=== PATIENT | male | born 1950 | race Caucasian/White ===

== ENCOUNTER 2021-03-21 14:01 | Outpatient (REF) | payer OTHER, SELFPAY ==
--- NOTE | ~2021-03-21 | US_ITS ---
EXAMINATION: US VENOUS ULTRASOUND WITH DOPPLER LOWER EXTREMITY, BILATERAL CLINICAL INFORMATION: Lower extremity pain. COMPARISON: None TECHNIQUE: Ultrasound of the deep veins is performed from the hip to the calf with compression sonography and color and pulse Doppler assessment. Spectral analysis with color-flow imaging is performed. FINDINGS: RIGHT: There is normal venous compression and respiratory variation and augmented flow. The visualized common femoral vein, superficial femoral vein, profunda femoral vein, popliteal vein, and the trifurcation region shows no evidence of deep venous thrombosis. There is no significant popliteal fossa cyst. LEFT: There is normal venous compression and respiratory variation and augmented flow. The visualized common femoral vein, superficial femoral vein, profunda femoral vein, popliteal vein, and the trifurcation region shows no evidence of deep venous thrombosis. There is no significant popliteal fossa cyst. If the patient's symptoms persist, followup ultrasound in 5 days 7 days might be of value to exclude proximal propagation from a non-visualized calf vein. US/US venous duplex LE BI IMPRESSION: No DVT demonstrated in the bilateral lower extremities.
== END 2021-03-21 14:02 | disposition home or self-care (01) ==
LOC: HO.US 14:01
PROVIDERS: PCP Internal Medicine; Visit Provider Internal Medicine
DX: M79.604 Pain in right leg (principal); M79.605 Pain in left leg
CPT/HCPCS: 93970

== ENCOUNTER 2022-05-09 13:59 | Outpatient (REF) | payer OTHER, SELFPAY ==
[2022-05-09 14:18] LABS: MANUAL DIFF FLAG NO
[2022-05-09 14:41] LABS: Basophils Percent Auto 0.5 % (0-2); Eosinophils Absolute Auto 0.1 X10*3/uL (0.0-0.4); Eosinophils Percent Auto 1.7 % (0-4); Hematocrit 43.2 % (42.0-52.0); Hemoglobin 14.6 g/dl (14.0-18.0); Imm Gran Abs Auto 0.04 X10*3/uL (0.00-0.03); Imm Gran Pct Auto 0.5 % (0.0-0.4); Lymphocytes Absolute Auto 2.4 X10*3/uL (1.2-4.9); Lymphocytes Percent Auto 30.9 % (20-40); Mean Corpuscular HGB Conc 33.8 g/dl (31.0-36.0); Mean Corpuscular Hemoglobin 29.9 pg (27.0-33.0); Mean Corpuscular Volume 88.3 fL (80.0-98.0); Mean Platelet Volume 10.2 fL (9.4-12.4); Monocytes Absolute Auto 0.6 X10*3/uL (0.1-1.2); Monocytes Percent Auto 7.8 % (2-11); Neutrophils Absolute Auto 4.5 x10*3/uL (2.0-8.3); Neutrophils Percent Auto 58.6 % (45-73); Platelet Count 177 X10*3/uL (160-400); Red Blood Count 4.89 X10*6/uL (4.60-5.80); Red Cell Distribution Width 13.7 % (11.0-16.0); White Blood Count 7.7 X10*3/uL (4.8-10.8)
[2022-05-09 15:21] LABS: Alanine Aminotransferase 33 U/L (0-40); Alkaline Phosphatase 74 U/L (39-117); Anion Gap 12 (12-20); Aspartate Amino Transferase 27 U/L (5-37); Bilirubin Total 0.5 mg/dL (0.0-1.0); Blood Urea Nitrogen 14 mg/dL (9-16); Calcium 8.8 mg/dL (8.4-10.2); Carbon Dioxide 26 mmol/L (22-29); Chloride 109 mmol/L (96-108); Cholesterol 187 mg/dL; Estimated Glomerular Filt Rate > 60; Glucose Random 95 mg/dL (60-115); HDL Cholesterol 61 mg/dL; LDL Cholesterol Calculated 118 mg/dl; Potassium 4.5 mmol/L (3.3-5.1); Sodium 142 mmol/L (135-145); Total Protein 6.5 g/dL (6.5-8.0); Triglycerides 41 mg/dL
[2022-05-09 15:30] LABS: Erythrocyte Sedimentation Rate 2 MM/HR (0-15)
[2022-05-09 15:37] LABS: Folate 17.3 ng/mL (> or = 4.0); Vitamin B12 313 pg/mL (200-900)
[2022-05-09 15:42] LABS: Free T4 (Free Thyroxine) 0.88 ng/dL (0.71-1.85); Prostate Specific Antigen Scr 1.62 ng/mL (<0.05-4.0)
== END 2022-05-09 14:00 | disposition home or self-care (01) ==
LOC: HO.LAB 13:59
PROVIDERS: PCP Internal Medicine; Visit Provider Internal Medicine
DX: E66.9 Obesity, unspecified (principal); E78.00 Pure hypercholesterolemia, unspecified; Z12.5 Encounter for screening for malignant neoplasm of prostate
CPT/HCPCS: 36415; 80053; 80061; 82607; 82746; 84153; 84439; 84443; 85025; 85652

== ENCOUNTER 2022-05-17 16:22 | Outpatient (REF) | payer OTHER, SELFPAY ==
--- NOTE | ~2022-05-17 | XR_ITS ---
EXAMINATION: XR HIP, RIGHT CLINICAL INFORMATION: M70.61 - Trochanteric bursitis, right hip COMPARISON: The abdomen and pelvis 11/22/2017. TECHNIQUE: AP view pelvis is performed along with 2 frog-lateral projections right hip. FINDINGS: There is no fracture, dislocation, destructive process. There is levocurvature lumbar spine is also noted on CT 2018. The SI joints and pubis show no diastases. Mild bilateral whiskering of the iliac crests is stable. Left hip is unremarkable. Right hip shows superior lateral hip joint narrowing without erosive change or visible chondrocalcinosis. There is mild linear calcification adjacent to the upper right greater trochanter which may be associated with calcific tendinosis. No erosive change. XR/XR hip RT min 2V IMPRESSION: -Narrowing superolateral right hip joint. No erosive change. -Fine benign linear calcification adjacent to right greater trochanter which may be associated with calcific tendinosis. -Levocurvature lumbar spine similar to CT 2018.
== END 2022-05-17 16:23 | disposition home or self-care (01) ==
LOC: HO.XRAY 16:22
PROVIDERS: PCP Internal Medicine; Visit Provider Internal Medicine
DX: M70.61 Trochanteric bursitis, right hip (principal)
CPT/HCPCS: 73502

== ENCOUNTER 2023-01-19 14:03 | Outpatient (REF) | payer OTHER, SELFPAY | END 2023-01-19 14:04 | disposition home or self-care (01) | LOC: HO.XRAY 14:03 | PROVIDERS: PCP Internal Medicine; Visit Provider Internal Medicine | DX: Z13.89 Encounter for screening for other disorder (principal) ==

== ENCOUNTER 2023-01-29 11:18 | Outpatient (REF) | payer OTHER, SELFPAY ==
--- NOTE | ~2023-01-29 | XR_ITS ---
EXAMINATION: XR HIP, BILATERAL, AND PELVIS XR KNEE, BILATERAL XR SCOLIOSIS SURVEY CLINICAL INFORMATION: Scoliosis. Hip and knee pain. COMPARISON: None available. TECHNIQUE: AP bilateral knee standing 1 view. AP pelvis and bilateral hips 5 views. AP upright scoliosis 2 images were obtained. FINDINGS: AP Bilateral Knee Standing: There is [id number] loss of medial compartment joint space both knees. No bony erosive changes, loose bodies or joint effusion seen. No fracture or dislocation seen. The bony cortex is intact. AP Pelvis and Bilateral Hips: There is mild loss of right hip joint space. The left hip joint space is preserved. The SI joints are symmetrical. No fracture or dislocation. Right Hip: There is mild loss of right superior hip joint space with lateral acetabular spurring. No acute fracture, dislocation or lytic process. Left Hip: The left hip joint space is preserved. No visible acute fracture, dislocation or subluxation seen. No bony erosive changes. The soft tissues are normal. Scoliosis Survey: There is significant S-shaped rotoscoliosis of thoracolumbar spine. No visible acute fracture or dislocation. The Franco's angle centered at T8-T9 disc level measures 52 degrees. The Franco's angle lumbar spine and L2 vertebra measures 50 degrees. No lytic or sclerotic process seen. The paravertebral soft tissues are normal. XR/XR knee standing BI IMPRESSION: Moderate degenerative changes medial compartment both knees without any fracture, loose bodies or soft tissue swelling. Mild degenerative changes right hip joint with lateral acetabular spurring. Unremarkable left hip exam. Significant rotoscoliosis of dorsal lumbar spine with Franco's angle described above. No acute fracture or lytic process seen. There are subluxations seen at several thoracic and lumbar disc levels with spondylosis.
--- NOTE | ~2023-01-29 | XR_ITS ---
EXAMINATION: XR HIP, BILATERAL, AND PELVIS XR KNEE, BILATERAL XR SCOLIOSIS SURVEY CLINICAL INFORMATION: Scoliosis. Hip and knee pain. COMPARISON: None available. TECHNIQUE: AP bilateral knee standing 1 view. AP pelvis and bilateral hips 5 views. AP upright scoliosis 2 images were obtained. FINDINGS: AP Bilateral Knee Standing: There is [id number] loss of medial compartment joint space both knees. No bony erosive changes, loose bodies or joint effusion seen. No fracture or dislocation seen. The bony cortex is intact. AP Pelvis and Bilateral Hips: There is mild loss of right hip joint space. The left hip joint space is preserved. The SI joints are symmetrical. No fracture or dislocation. Right Hip: There is mild loss of right superior hip joint space with lateral acetabular spurring. No acute fracture, dislocation or lytic process. Left Hip: The left hip joint space is preserved. No visible acute fracture, dislocation or subluxation seen. No bony erosive changes. The soft tissues are normal. Scoliosis Survey: There is significant S-shaped rotoscoliosis of thoracolumbar spine. No visible acute fracture or dislocation. The Franco's angle centered at T8-T9 disc level measures 52 degrees. The Franco's angle lumbar spine and L2 vertebra measures 50 degrees. No lytic or sclerotic process seen. The paravertebral soft tissues are normal. XR/XR hip BI w PEL1V IMPRESSION: Moderate degenerative changes medial compartment both knees without any fracture, loose bodies or soft tissue swelling. Mild degenerative changes right hip joint with lateral acetabular spurring. Unremarkable left hip exam. Significant rotoscoliosis of dorsal lumbar spine with Franco's angle described above. No acute fracture or lytic process seen. There are subluxations seen at several thoracic and lumbar disc levels with spondylosis.
--- NOTE | ~2023-01-29 | XR_ITS ---
EXAMINATION: XR HIP, BILATERAL, AND PELVIS XR KNEE, BILATERAL XR SCOLIOSIS SURVEY CLINICAL INFORMATION: Scoliosis. Hip and knee pain. COMPARISON: None available. TECHNIQUE: AP bilateral knee standing 1 view. AP pelvis and bilateral hips 5 views. AP upright scoliosis 2 images were obtained. FINDINGS: AP Bilateral Knee Standing: There is [id number] loss of medial compartment joint space both knees. No bony erosive changes, loose bodies or joint effusion seen. No fracture or dislocation seen. The bony cortex is intact. AP Pelvis and Bilateral Hips: There is mild loss of right hip joint space. The left hip joint space is preserved. The SI joints are symmetrical. No fracture or dislocation. Right Hip: There is mild loss of right superior hip joint space with lateral acetabular spurring. No acute fracture, dislocation or lytic process. Left Hip: The left hip joint space is preserved. No visible acute fracture, dislocation or subluxation seen. No bony erosive changes. The soft tissues are normal. Scoliosis Survey: There is significant S-shaped rotoscoliosis of thoracolumbar spine. No visible acute fracture or dislocation. The Franco's angle centered at T8-T9 disc level measures 52 degrees. The Franco's angle lumbar spine and L2 vertebra measures 50 degrees. No lytic or sclerotic process seen. The paravertebral soft tissues are normal. XR/XR scoliosis survey IMPRESSION: Moderate degenerative changes medial compartment both knees without any fracture, loose bodies or soft tissue swelling. Mild degenerative changes right hip joint with lateral acetabular spurring. Unremarkable left hip exam. Significant rotoscoliosis of dorsal lumbar spine with Franco's angle described above. No acute fracture or lytic process seen. There are subluxations seen at several thoracic and lumbar disc levels with spondylosis.
== END 2023-01-29 11:19 | disposition home or self-care (01) ==
LOC: HO.XRAY 11:18
PROVIDERS: PCP Internal Medicine; Visit Provider Internal Medicine
DX: M41.9 Scoliosis, unspecified (principal); M25.551 Pain in right hip; M25.561 Pain in right knee; M25.562 Pain in left knee
CPT/HCPCS: 72082; 73521; 73565

== ENCOUNTER 2023-10-11 09:56 | Outpatient (AMB) | payer OTHER, SELFPAY ==
[2023-10-11 09:58] VITALS: BP 138/64; PULSE 68; O2SAT 96; BMI 32.8
--- NOTE | 2023-10-11 09:58 | MHC.PC.OV ---
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: No Accompanied by: Self / Same As Patient Allergies metronidazole [Flagyl] Allergy (Mild, Verified 10/11/23 10:04) light headed Tobacco use date assessed: 01/29/23 Fall risk assessment: No Falls in past year Last assessed Fall Risk: 10/11/23 Dental Screening Dental Screen Date: 10/11/23 Did you have a dental visit in the last 12 months?: Yes Did you have a dental problem in the last 6 months where you did not have access to dental care?: No Was dental information given to patient?: Patient has dentist HPI low back pain HPI Details 72-year-old obese male with obstructive sleep apnea scoliosis coming in for follow-up. Last seen in January 2023 patient has requested for physical therapy for difficulty in walking diagnosis of reduced hip flexion. Patient was sent with the Cologuard test that has because the patient declined to use it. Patient has had x-rays done in January showing moderate degenerative changes in the medial compartment of both knees no fractures mild degenerative changes in the right hip with spurring unremarkable left hip significant rotoscoliosis of the dorsal lumbar spine. on physical therapy presently. changed bed also. decline vaccinations [facility] Medical History (Updated 10/11/23 @ 10:25 by Almas Carpenter MD) Tinea corporis DVT (deep venous thrombosis) Dry skin dermatitis Venous stasis dermatitis Umbilical hernia Obesity (BMI 30-39.9) Renal calculi Obstructive sleep apnea Surgical History H/O inguinal hernia repair Social History Housing: House Alcohol intake: never Patient Tobacco Use Status: Former Tobacco user Tobacco use type: Cigarette Years Smoked: 1974 e-Cigarette/Vaping Use: Never Used Second Hand Smoke Exposure: No Current occupational status: employed Cognitive needs: No Hearing needs: No Vision needs: Yes Questionnaire Thrive Questionnaire Date Thrive assessed: 01/29/23 DELANO-7 AMB Questionnaire DELANO-7 Date DELANO - 7 assessed: 01/29/23 Source: Developed by Drs. Gurpreet Rehman, Patricia Connolly, Saúl Hernández and colleagues, with an educational vasile from [employer]. Physical exam (Primary Care) Vital Signs: Last Vital Signs Pulse 68 10/11/23 09:58 BP 138/64 10/11/23 09:58 Pulse Ox 96 10/11/23 09:58 Oxygen Delivery Method Room Air 10/11/23 09:58 BMI result Body Mass Index 32.8 Tobacco/Smoking Status: Tobacco use Status Tobacco use date assessed 01/29/23 10/11/23 10:06 Patient Tobacco Use Status Former Tobacco user 10/11/23 10:06 Tobacco use type Cigarette 10/11/23 10:06 e-Cigarette/Vaping Use Never Used 10/11/23 10:06 Thrive Assessment: Date of Thrive Assessment Date Thrive assessed 01/29/23 10/11/23 10:06 Const General: alert; No acute distress Eyes Conjunctivae: conjunctivae normal Resp Auscultation: clear to auscultation bilaterally Cardio Rate: regular rate Rhythm: regular rhythm GI Inspection: Yes normal to inspection Extrem General: Yes normal to inspection and No edema Assessment and Plan Assessment & Plan (1) Scoliosis: Comment: seeRaiza Conn (07/2022) Code(s): M41.9 - Scoliosis, unspecified Qualifiers: Scoliosis type: unspecified scoliosis Spinal region: lumbar Qualified Code(s): M41.9 - Scoliosis, unspecified Plan: Keep active and lose the weight (2) Arthritis, hip: Code(s): M16.10 - Unilateral primary osteoarthritis, unspecified hip Plan: Keep active and lose the weight (3) Bilateral primary osteoarthritis of knee: Code(s): M17.0 - Bilateral primary osteoarthritis of knee Plan: Continue to lose the weight keep active keep well hydrated (4) Obstructive sleep apnea: Comment: July 2019 Code(s): G47.33 - Obstructive sleep apnea (adult) (pediatric) Plan: Continue to use the CPAP more than 4 hours a night and benefits from this (5) Obesity (BMI 30-39.9): Code(s): E66.9 - Obesity, unspecified Plan: Noted weight loss continue with diet and exercise! (6) Colon cancer screening: Code(s): Z12.11 - Encounter for screening for malignant neoplasm of colon Plan: Reminded about colonoscopy or Cologuard test Orders: Orders Comprehensive Met. Panel Today E66.9 - Obesity, unspecified Free T4 (Free Thyroxine) Today E66.9 - Obesity, unspecified Thyroid Stimulating Hormone Today E66.9 - Obesity, unspecified Lipid Panel Today E66.9 - Obesity, unspecified, E78.00 - Pure hypercholesterolemia, unspecified Complete Blood Count Auto Diff Today E66.9 - Obesity, unspecified Vitamin B12 and Folate Today E66.9 - Obesity, unspecified Referrals Cologuard Test Z12.11 - Encounter for screening for malignant neoplasm of colon, Z12.12 - Encounter for screening for malignant neoplasm of rectum Coding Level of Care Code Est Pt Level 4 (99263) Diagnoses Scoliosis of lumbar spine, unspecified scoliosis type M41.9 Scoliosis type: unspecified scoliosis Spinal region: lumbar Arthritis, hip M16.10 Bilateral primary osteoarthritis of knee M17.0 Obstructive sleep apnea G47.33 Obesity (BMI 30-39.9) E66.9 Colon cancer screening Z12.11
== END 2023-10-11 10:45 | disposition home or self-care (01) ==
PROVIDERS: PCP Internal Medicine; Visit Provider Internal Medicine
DX: M41.9 Scoliosis, unspecified (principal); M16.10 Unilateral primary osteoarthritis, unspecified hip; M17.0 Bilateral primary osteoarthritis of knee; G47.33 Obstructive sleep apnea (adult) (pediatric)
CPT/HCPCS: 99214

== ENCOUNTER 2024-10-20 15:15 | Outpatient (AMB) | payer OTHER, SELFPAY ==
[2024-10-20 15:20] VITALS: BP 140/78; PULSE 66; O2SAT 97; BMI 34.3
--- NOTE | 2024-10-20 15:20 | MHC.PC.OV ---
Vital Signs 10/20/24 15:20 Height 5 ft 5 in Weight 206 lb BMI 34.3 BP 140/78 H Blood Pressure Location Lt brachial Position Sitting Pulse 66 Pulse Source Pulse Oximeter Pulse Oximetry (%) 97 Oxygen Delivery Method Room Air Intake Visit Reasons: chronic back and hip pain-see comm Allergies metronidazole [Flagyl] Allergy (Mild, Verified 10/20/24 15:20) light headed Tobacco use date assessed: 10/20/24 Fall risk assessment: No Falls in past year Last assessed Fall Risk: 10/20/24 Dental Screening Dental Screen Date: 10/20/24 Did you have a dental visit in the last 12 months?: Yes Did you have a dental problem in the last 6 months where you did not have access to dental care?: No Was dental information given to patient?: Patient has dentist HPI chronic back and hip pain-see comm HPI Details The patient is a 73-year-old male presenting with chronic lumbar spine pain and right hip osteoarthritis. The lumbar spine pain began approximately two and a half years ago, initially noticed after starting to use a new car with a different seating arrangement. The pain is localized to the lumbar area and radiates down the right side to the buttocks, thigh, and groin. The patient reports a significant exacerbation of symptoms following the unavailability of his regular chiropractor in May. Despite intermittent physical therapy at [facility] in [place], the condition persists without significant improvement. Previous imaging revealed right hip osteoarthritis with spurring but were unremarkable for the left hip. The therapy has included attempts at managing muscle tightness in the lower back by referring physical therapists who have also recommended MRI imaging for further evaluation. The patient denies any recent falls or trauma associated with the onset of symptoms and reports continued difficulty walking. [facility] Medical History (Updated 10/20/24 @ 16:04 by Almas Carpenter MD) Tinea corporis DVT (deep venous thrombosis) Dry skin dermatitis Venous stasis dermatitis Umbilical hernia Obesity (BMI 30-39.9) Renal calculi Obstructive sleep apnea Surgical History H/O inguinal hernia repair Social History Housing: House Alcohol intake: never Patient Tobacco Use Status: Former Tobacco user Tobacco use type: Cigarette Years Smoked: 1974 e-Cigarette/Vaping Use: Never Used Second Hand Smoke Exposure: No Current occupational status: employed Cognitive needs: No Hearing needs: No Vision needs: Yes Questionnaire PHQ-9 Over the last 2 weeks, how often have you been bothered by any of the following problems? 1. Little interest or pleasure in doing things: not at all 2. Feeling down, depressed, or hopeless: not at all 3. Trouble falling or staying asleep, or sleeping too much: not at all 4. Feeling tired or having little energy: not at all 5. Poor appetite or overeating: not at all 6. Feeling bad about yourself - or that you are a failure or have let yourself or your family down: not at all 7. Trouble concentrating on things, such as reading the newspaper or watching television: not at all 8. Moving or speaking so slowly that other people could have noticed. Or the opposite - being so fidgety or restless that you have been moving around a lot more than usual: not at all 9. Thoughts that you would be better off or of hurting yourself in some way: not at all Total score: 0 Depression Screening Interpretation: Negative Depression Screening Done: Yes Source: Developed by Drs. Gurpreet Rehman, Patricia Connolly, Saúl Hernández and colleagues, with an educational vasile from [email or web address]. Thrive Questionnaire Date Thrive assessed: 10/20/24 I am a: Patient What is your living situation today?: I have a steady place to live Within the past 12 months, did the food you bought not last and you didn't have the money to get more?: Never true Within the past 12 months, did you worry whether your food would run out before you got money to buy more?: Never true Do you have trouble paying for medicines?: No Do you have trouble getting transportation to medical appointments?: No Do you have trouble paying your heating and electricity bill?: No Do you have trouble taking care of your child, family member or friend?: No Do you have trouble with day-to-day activities such as bathing, preparing meals, shopping, managing finances, etc.?: No Are you currently unemployed and looking for a job?: No Are you interested in more education?: No Currently or been in a relationship where the following occur: No concerns reported THRIVE Score: 0 AUDIT C Alcohol Use Questionnaire (AUDIT-C) 1. How often do you have a drink containing alcohol?: Never 2. How many drinks containing alcohol do you have on a typical day when you are drinking?: 1 or 2 3. How often do you have six or more drinks on one occasion?: Never Total Score: 0 DELANO-7 AMB Questionnaire DELANO-7 Date DELANO - 7 assessed: 10/20/24 Feeling nervous, anxious, or on edge: 0 = Not at all Not being able to stop or control worryin = Not at all Worrying too much about different things: 0 = Not at all Trouble relaxin = Not at all Being so restless that it is hard to sit still: 0 = Not at all Becoming easily annoyed or irritable: 0 = Not at all Feeling afraid as if something awful might happen: 0 = Not at all Total DELANO-7 score (0-4 normal; 5-9 mild; 10-14 moderate; 15-21 severe): 0 Source: Developed by Drs. Gurpreet Rehman, Patricia Connolly, Saúl Hernández and colleagues, with an educational vasile from [email or web address]. Physical exam (Primary Care) Vital Signs: Last Vital Signs Pulse 66 10/20/24 15:20 BP 140/78 H 10/20/24 15:20 Pulse Ox 97 10/20/24 15:20 Oxygen Delivery Method Room Air 10/20/24 15:20 BMI result Body Mass Index 34.3 Tobacco/Smoking Status: Tobacco use Status Tobacco use date assessed 10/20/24 10/20/24 15:21 Patient Tobacco Use Status Former Tobacco user 10/20/24 15:21 Tobacco use type Cigarette 10/20/24 15:21 e-Cigarette/Vaping Use Never Used 10/20/24 15:21 PHQ-9: PHQ-9 Score PHQ-9: Total score 0 10/20/24 16:02 Depression Screening Interpretation: Negative Thrive Assessment: Date of Thrive Assessment Date Thrive assessed 10/20/24 10/20/24 15:21 Currently or been in a relationship where the following occur: No concerns reported Const General: alert; No acute distress Eyes Conjunctivae: conjunctivae normal Resp Auscultation: clear to auscultation bilaterally Cardio Rate: regular rate Rhythm: regular rhythm GI Inspection: Yes normal to inspection Back/Spine/Pelvis Other: Patient complains of tenderness in the lumbar area on examination tender on palpation as well as on the sacroiliac joint but patient complains of right thigh to right groin radiation but examination reveals no leg elevation problems. DTRs +2 on all extremities Extrem General: Yes normal to inspection and No edema Coding Level of Care Code Est Pt Level 4 (02944) Diagnoses Bilateral primary osteoarthritis of knee M17.0 Scoliosis of lumbar spine, unspecified scoliosis type M41.9 Scoliosis type: unspecified scoliosis Spinal region: lumbar Obesity (BMI 30-39.9) E66.9 Obstructive sleep apnea G47.33 Chronic low back pain M54.50; G89.29 Colon cancer screening Z12.11 Assessment & Plan Assessment & Plan (1) Bilateral primary osteoarthritis of knee: Code(s): M17.0 - Bilateral primary osteoarthritis of knee Category: Medical (2) Scoliosis: Comment: Raiza Arndt (07/2022) Code(s): M41.9 - Scoliosis, unspecified Category: Medical Qualifiers: Scoliosis type: unspecified scoliosis Spinal region: lumbar Qualified Code(s): M41.9 - Scoliosis, unspecified (3) Obesity (BMI 30-39.9): Code(s): E66.9 - Obesity, unspecified Category: Medical (4) Obstructive sleep apnea: Comment: July 2019 Code(s): G47.33 - Obstructive sleep apnea (adult) (pediatric) Category: Medical (5) Chronic low back pain: Code(s): M54.50 - Low back pain, unspecified; G89.29 - Other chronic pain Category: Medical (6) Colon cancer screening: Code(s): Z12.11 - Encounter for screening for malignant neoplasm of colon Category: Medical Plan - Order MRI of the lumbar spine to assess underlying pathology contributing to the pain. - Schedule an X-ray of the lumbar spine to evaluate structural integrity and any possible degenerative changes. - Discuss insurance requirements for referrals and necessary pre-authorizations for treatments. - Facilitate referral to a chiropractor, specifically Dr. Mamie Sepulveda, at the patient's request, pending provision of additional referral details. - Continue physical therapy at [facility] with the possibility of altering interventions based on MRI and X-ray findings. - Educate about the importance of consistent follow-up and reporting of insurance-related updates regarding scheduled diagnostic tests. Orders: Orders MR lumbar spine wo con Today G89.29 - Other chronic pain, M54.50 - Low back pain, unspecified Complete Blood Count Auto Diff Today E66.9 - Obesity, unspecified Comprehensive Met. Panel Today E66.9 - Obesity, unspecified Thyroid Stimulating Hormone Today E66.9 - Obesity, unspecified Lipid Panel Today E66.9 - Obesity, unspecified, E78.00 - Pure hypercholesterolemia, unspecified XR lumbar spine 2-3V Today G89.29 - Other chronic pain, M54.50 - Low back pain, unspecified Free T4 (Free Thyroxine) Today E66.9 - Obesity, unspecified Vitamin B12 and Folate Today E66.9 - Obesity, unspecified Referrals Cologuard Test Z12.11 - Encounter for screening for malignant neoplasm of colon
== END 2024-10-20 16:20 | disposition home or self-care (01) ==
PROVIDERS: PCP Internal Medicine; Visit Provider Internal Medicine
DX: M17.0 Bilateral primary osteoarthritis of knee (principal); M41.9 Scoliosis, unspecified; Z68.34 Body mass index [BMI] 34.0-34.9, adult; E66.9 Obesity, unspecified; G47.33 Obstructive sleep apnea (adult) (pediatric); M54.50 Low back pain, unspecified; G89.29 Other chronic pain; Z12.11 Encounter for screening for malignant neoplasm of colon

== ENCOUNTER 2024-11-24 14:59 | Outpatient (AMB) | payer OTHER, SELFPAY ==
--- NOTE | 2024-11-24 15:14 | A.OFFPC_ITS ---
Vital Signs 11/24/24 15:16 Height 5 ft 5 in Weight 208 lb 4 oz BMI 34.7 BP 130/74 Blood Pressure Location Lt brachial Position Sitting Pulse 74 Pulse Source Pulse Oximeter Temp 97.1 F Temp Source Skin Pulse Oximetry (%) 97 Oxygen Delivery Method Room Air Intake Visit Reasons: Referral for Chiropractor Intake Note: Patient is here to follow up on MRI denial. Tearer Required: No Feed In Worker: Not Required per policy Accompanied by: Self / Same As Patient Allergies metronidazole [Flagyl] Allergy (Mild, Verified 11/24/24 15:15) light headed Tobacco use date assessed: 11/24/24 Fall risk assessment: No Falls in past year Last assessed Fall Risk: 11/24/24 Dental Screening Dental Screen Date: 11/24/24 Did you have a dental visit in the last 12 months?: Yes Did you have a dental problem in the last 6 months where you did not have access to dental care?: No Was dental information given to patient?: Patient has dentist HPI Referral for Chiropractor HPI Details states Chiropractor will be sending notes, states that has been seeing chiropractor for 2 years with patient handing over the physical therapy notes for 2 years as patient has called [facility] more than 6 weeks- will try to send them the notes, Mamie Sepulveda chiropractcarloz The patient is a 73-year-old male presenting with chronic back pain exacerbation and issues related to obstructive sleep apnea device replacement. The chronic pain began approximately two and a half years ago, located primarily in the back and left hip. The patient has been receiving chiropractic treatment for this condition at [facility] for over two years and has also attended some physical therapy sessions. The pain initially escalated in severity to the extent that the chiropractor recommended triweekly visits. Treatment at [facility] was comprehensive and reportedly effective, but the insurance has repeatedly denied requests for an MRI due to a claimed lack of documented treatment duration. The patient states that despite continuous treatment, insurance records reflect only a single visit. This has made proving the condition to the insurance company challenging. Additionally, the patient indicates complications with replacing his CPAP machine, which is due for replacement after more than five years of use. The m achine's effectiveness has diminished, and the insurance company requires a recent consultation with a sleep specialist for approval of a new device. Notably, the patient's previous sleep medicine facility is out of network, prompting a potential referral to a new specialist within the network. [facility] Medical History (Updated 10/20/24 @ 16:04 by Almas Carpenter MD) Tinea corporis DVT (deep venous thrombosis) Dry skin dermatitis Venous stasis dermatitis Umbilical hernia Obesity (BMI 30-39.9) Renal calculi Obstructive sleep apnea Surgical History H/O inguinal hernia repair Social History Housing: House Alcohol intake: never Patient Tobacco Use Status: Former Tobacco user Tobacco use type: Cigarette Years Smoked: 1974 e-Cigarette/Vaping Use: Never Used Second Hand Smoke Exposure: Yes service: No Current occupational status: employed Cognitive needs: No Hearing needs: No Vision needs: Yes Questionnaire PHQ-9 Over the last 2 weeks, how often have you been bothered by any of the following problems? 1. Little interest or pleasure in doing things: not at all 2. Feeling down, depressed, or hopeless: not at all 3. Trouble falling or staying asleep, or sleeping too much: not at all 4. Feeling tired or having little energy: not at all 5. Poor appetite or overeating: not at all 6. Feeling bad about yourself - or that you are a failure or have let yourself or your family down: not at all 7. Trouble concentrating on things, such as reading the newspaper or watching television: not at all 8. Moving or speaking so slowly that other people could have noticed. Or the opposite - being so fidgety or restless that you have been moving around a lot more than usual: not at all 9. Thoughts that you would be better off or of hurting yourself in some way: not at all Total score: 0 Depression Screening Interpretation: Negative Depression Screening Done: Yes Source: Developed by Drs. Gurpreet Rehman, Patricia Connolly, Saúl Hernández and colleagues, with an educational vasile from [employer]. Thrive Questionnaire Date Thrive assessed: 11/24/24 I am a: Patient What is your living situation today?: I have a steady place to live Within the past 12 months, did the food you bought not last and you didn't have the money to get more?: Never true Within the past 12 months, did you worry whether your food would run out before you got money to buy more?: Never true Do you have trouble paying for medicines?: No Do you have trouble getting transportation to medical appointments?: No Do you have trouble paying your heating and electricity bill?: No Do you have trouble taking care of your child, family member or friend?: No Do you have trouble with day-to-day activities such as bathing, preparing meals, shopping, managing finances, etc.?: No Are you currently unemployed and looking for a job?: No Are you interested in more education?: No Please select the resources that you would like help with: None Currently or been in a relationship where the following occur: No concerns reported THRIVE Score: 0 AUDIT C Alcohol Use Questionnaire (AUDIT-C) 1. How often do you have a drink containing alcohol?: Never Total Score: 0 DELANO-7 AMB Questionnaire DELANO-7 Date DELANO - 7 assessed: 11/24/24 Feeling nervous, anxious, or on edge: 0 = Not at all Not being able to stop or control worryin = Not at all Worrying too much about different things: 0 = Not at all Trouble relaxin = Not at all Being so restless that it is hard to sit still: 0 = Not at all Becoming easily annoyed or irritable: 0 = Not at all Feeling afraid as if something awful might happen: 0 = Not at all Total DELANO-7 score (0-4 normal; 5-9 mild; 10-14 moderate; 15-21 severe): 0 Source: Developed by Drs. Gurpreet Rehman, Patricia Connolly, Saúl Hernández and colleagues, with an educational vasile from [employer]. Physical exam (Primary Care) Vital Signs: Last Vital Signs Temp 97.1 F 11/24/24 15:16 Pulse 74 11/24/24 15:16 BP 130/74 11/24/24 15:16 Pulse Ox 97 11/24/24 15:16 Oxygen Delivery Method Room Air 11/24/24 15:16 BMI result Body Mass Index 34.7 Tobacco/Smoking Status: Tobacco use Status Tobacco use date assessed 11/24/24 11/24/24 15:23 Patient Tobacco Use Status Former Tobacco user 11/24/24 15:23 Tobacco use type Cigarette 11/24/24 15:23 e-Cigarette/Vaping Use Never Used 11/24/24 15:23 PHQ-9: PHQ-9 Score PHQ-9: Total score 0 11/24/24 15:40 Depression Screening Interpretation: Negative Thrive Assessment: Date of Thrive Assessment Date Thrive assessed 11/24/24 11/24/24 15:23 Currently or been in a relationship where the following occur: No concerns reported Const General: alert; No acute distress Eyes Conjunctivae: conjunctivae normal Resp Auscultation: clear to auscultation bilaterally Cardio Rate: regular rate Rhythm: regular rhythm GI Inspection: Yes normal to inspection Extrem General: Yes normal to inspection and No edema Coding Level of Care Code Est Pt Level 4 (95753) Diagnoses Chronic low back pain M54.50; G89.29 Obesity (BMI 30-39.9) E66.9 Obstructive sleep apnea G47.33 Assessment & Plan Assessment & Plan (1) Chronic low back pain: Code(s): M54.50 - Low back pain, unspecified; G89.29 - Other chronic pain Category: Medical Plan: Pt and chiropractor work for more than 2 years (2) Obesity (BMI 30-39.9): Code(s): E66.9 - Obesity, unspecified Category: Medical Plan: diet and exercise (3) Obstructive sleep apnea: Comment: July 2019 Code(s): G47.33 - Obstructive sleep apnea (adult) (pediatric) Category: Medical Plan: using CPAP but asking for ffup with sleep management Plan - Provide updated documentation of chiropractic treatment to further support insurance requests for diagnostic imaging such as an MRI. - Recommend continuation of health care technician and physical therapy for chronic pain management. - Facilitate an informal referral to an in-network sleep medicine specialist, specifically Sophie from the [facility], in order to secure approval for CPAP machine replacement. - Alert the patient to maintain precautionary measures against prevalent seasonal illnesses like influenza, RSV, COVID-19, and norovirus. Orders: Orders MR lumbar spine wo con Today G89.29 - Other chronic pain, M54.50 - Low back p ain, unspecified Referrals Neurology Referral G47.33 - Obstructive sleep apnea (adult) (pediatric)
[2024-11-24 15:16] VITALS: BP 130/74; PULSE 74; TEMP 36.2; O2SAT 97; BMI 34.7
--- OUTSIDE RECORDS SUMMARY | 2024-11-24 19:15 | XMS_ITS | Clinical Summary ---
Author Organization [employer] Address [address] [place] [address] [address] [place] [address] Care Team Providers Care Peoplesoft Hr Developer Name Role Phone Unavailable Primary Care Provider Unavailabl e Allergies No known active allergies Medications No known medications Encounters Date Type Department Care Team Description 10/23/2024 4:00 PM EST Office Visit [facility] DENTAL [address] [place], [place] [id number] Stephanie Martinez DDS Dental caries (Primary Dx); Missing teeth, acquired; Periodontal disease 10/16/2024 3:00 PM EST Office Visit [facility] DENTAL [address] [place], [place] [id number] Stephanie Martinez DDS Dental caries (Primary Dx) from Last 3 Months Social History Tobacco Use Types Packs/Day Years Used Date Smoking Tobacco: Never Assessed Sex and Gender Information Value Date Recorded Sex Assigned at Male 03/19/2024 2:05 PM EDT Legal Sex Male 8:35 PM EDT Gender Identity Male 03/19/2024 2:05 PM EDT Sexual Orientation Choose not to disclose 2023 2:05 PM EDT Plan of Treatment Upcoming Encounters Date Type Department Care Team (Late st Contact Info) Description 12/04/2024 2:00 PM EST Office Visit [facility] DENTAL [address] [place] [address] Renee Heller [address] [place] [address] Health Maintenance Due Date Last Done Comments CT Colonography 1950 Colonoscopy 1950 Colorectal Cancer Screening 1950 Dental Oral Exam 1950 Dental Prophylaxis 1950 Depression Screening 1950 FIT DNA/Cologuard 1950 FIT 1950 FOBT 1950 Lipid Panel 1950 SDOH Screening 1950 Sigmoidoscopy 1950 Alcohol/Substance Use Screening 1962 Tobacco Screening 1962 Hepatitis C Screening 1968 Zoster Vaccines (1 of 2) 2000 Pneumococcal Vaccine: 65+ Ye ars (1 of 1 - PCV) 2015 COVID-19 Vaccine ( - 2023-2 5 season) 2024 Influenza Vaccine (#1) 2024 Dental X-Ray: Bitewings 10/24/2025 10/23/2024 RSV Patients and Pa tients Aged 60 years or older (1 - 1-dose 75+ series) 2025 DTaP/Tdap/Td Vaccines (2 - T d or Tdap) 08/22/2027 08/22/2017 Dental X-Ray: Full Mouth 10/24/2027 10/23/2024 HIB Vaccines Aged Out No longer eligi ble based on patient's age to complete this topic HPV Vaccines Aged Out No longer eligi ble based on patient's age to complete this topic Hepatitis A Vaccines Aged Out No long er eligible based on patient's age to complete this topic Hepatitis B Vaccines Aged Out No long er eligible based on patient's age to complete this topic IPV Vaccines Aged Out No longer eligi ble based on patient's age to complete this topic Meningococcal Vaccine Aged Out No clarisa yessi eligible based on patient's age to complete this topic RSV under 20 months Aged Out No longe r eligible based on patient's age to complete this topic Rotavirus Vaccines Aged Out No longer eligible based on patient's age to complete this topic Procedures Procedure Name Priority Date/Time Associated Diagnosis Comments DIAGNOSTIC - DIAGNOSTIC IMAGING - INTRAORAL - COMPREHENSIVE SERIES OF RADIOGRAPHIC IMAGES Routine 10/23/2024 4:00 PM EST Dental caries Missing teeth, acquired Periodontal disease 31 D RESTORATIVE - RESIN-BASED COMPOSITE RESTORATIONS - DIRECT - RESIN-BASED COMPOSITE - ONE SURFACE, POSTERIOR Routine 10/23/2024 4:00 PM EST Dental caries 30 DO RESTORATIVE - RESIN-BASED COMPOSITE RESTORATIONS - DIRECT - RESIN-BASED COMPOSITE - TWO SURFACES, POSTERIOR Routine 10/23/2024 4:00 PM EST Dental caries ADJUNCTIVE GENERAL SERVICES - PROFESSIONAL VISITS - CASE PRESENTATION, SUBSEQUENT TO DETAILED AND EXTENSIVE TREATMENT PLANNING Routine 10/23/2024 4:00 PM EST Dental caries Missing teeth, acquired Periodontal disease ADJUNCTIVE GENERAL SERVICES - PROFESSIONAL VISITS - CASE PRESENTATION, SUBSEQUENT TO DETAILED AND EXTENSIVE TREATMENT PLANNING Routine 10/16/2024 3:00 PM EST Dental caries 11 MDFF(V) RESTORATIVE - RESIN-BASED COMPOSITE RESTORATIONS - DIRECT - RESIN-BASED COMPOSITE - THREE SURFACES, ANTERIOR Routine 10/16/2024 3:00 PM EST Dental caries from Last 3 Months Insurance DENTAL - HSN FULL (MEDICAID)
--- OUTSIDE RECORDS SUMMARY | 2024-11-24 19:15 | XMS_ITS | Patient Health Record ---
Author Organization [facility] Address [address] [place] [address] Care Team Providers Care Temperer Name Role Phone Almas Carpenter Primary Care Provider Hardeep Beltran Unavailable [phone] Allergies Allergen (clinical drug ingredient) Drug/Non Drug Allergy documented on EMR Reaction Allergy Type Onset Date Status Wheat Wheat (uncoded) Foggy thoughts, gained weight, lethargic Allergy Active Reason For Referral No Information Medications Medication SIG (Take, Route, Fr equency, Duration) Notes Start Date End Date Status Magnesium Active L-Tryptophan 500 MG 1 capsule at bedtime Orally Once a day Active Multivitamin Active Calcium Active Vitamin C Active Aspirin 2 Orally Once a day Active Immunizations Vaccine Route Administration Date Status Comme nts COVID-19 Nato [employer] Nato/Ria Unknown 11/27/2022 R efused Social History Tobacco Use: Social History Observation Description Date Details (start date - stop date) Former Smoker NA - NA Tobacco Use/Smoking Question Answer Notes Are you a: former smoker Alcohol Screen Question Answer Notes Did you have a drink containing alcohol in the p ast year? No Points 0 Interpretation Negative Tobacco use other than smoking: Question Answer Notes Are you an other tobacco user? No Problems Problem Type SNOMED Code ICD Code Onset Dates Problem Status W/U Status Risk Notes Problem Localized, primary osteoarthritis of the ankle and/or foot (878941053) Primary osteoarthritis, left ankle and foot (M19.072) Active confirmed Problem Acquired hammer toe of right foot (9207708877773595) Other hammer toe(s) (acquired), right foot (M20.41) Active confirmed Problem Acquired hammer toe of left foot (1223301208478592) Other hammer toe(s) (acquired), left foot (M20.42) Active confirmed Problem 653392340 Venous insufficiency of both lower extremities (I87.2) Active confirmed Plan Of Treatment Pending Test Test Name Order Date X ray : Foot, left 2V 05/07/2019 X ray : Foot, right 2V 05/07/2019 X ray : Foot, left 3V 11/27/2022 Insurance Providers Payer Name Payer Address Payer Phone Subscriber Number Group Number Insured Name Patient Relationship to Insured Coverage Start Date Coverage End Date [facility] [address] [place] [phone] [id number] Cornel Avina Self - patient is the insured Medical (General) History Medical History History ICD Code Anxiety Back,Hip,and Knee pain Measles Chicken pox Surgical History Surgery Date(Month/Year) hernia 01/2010/01/2018
== END 2024-11-24 16:31 | disposition home or self-care (01) ==
PROVIDERS: PCP Internal Medicine; Visit Provider Internal Medicine
DX: M54.50 Low back pain, unspecified (principal); G89.29 Other chronic pain; E66.9 Obesity, unspecified; Z68.34 Body mass index [BMI] 34.0-34.9, adult; G47.33 Obstructive sleep apnea (adult) (pediatric)

== ENCOUNTER → 2024-12-19 16:43 | Outpatient (BNV) | payer MEDICARE, SELFPAY | PROVIDERS: PCP Internal Medicine; Visit Provider Radiology Diagnostic Radiology | DX: M41.26 Other idiopathic scoliosis, lumbar region (principal); M47.896 Other spondylosis, lumbar region; M48.062 Spinal stenosis, lumbar region with neurogenic claudication | CPT/HCPCS: 72148 ==

== ENCOUNTER 2024-12-19 16:49 | Outpatient (REF) | payer MEDICARE, SELFPAY ==
--- NOTE | ~2024-12-19 | MR_ITS ---
EXAMINATION: MR LUMBAR SPINE WITHOUT CONTRAST CLINICAL INFORMATION: Low back pain. COMPARISON: Correlated to x-ray dated January 29, 2023. TECHNIQUE: MRI of the lumbar spine was obtained using routine sequences without contrast. FINDINGS: Last rib-bearing vertebra labeled T12. Bone marrow STIR signal within the posterior superior endplate of L5, L3 and L4. Levoconvex rotoscoliosis apex at L2-3. There is focal intrinsic hyperintense T1 bone marrow lesion at L3, intraosseous hemangioma. Bone marrow inhomogeneity. Multilevel disc desiccation and marginal osteophyte formation with Schmorl nodes more conspicuous at L3-4 and L2-3 levels. There is a grade 1 anterolisthesis L5-S1 on a degenerative basis. The conus medullaris ends at pedicle of L1 with normal signal. T11-12: Facet joint and ligamentum flavum hypertrophy. No disc herniation. T12-L1: No disc herniation. No neuroforamina stenosis. L1-2: Facet joint and ligamentum flavum hypertrophy. No disc herniation. No neuroforamina stenosis. L2-3: Broad-based disc bulging. Facet joint and ligamentum flavum hypertrophy. No neuroforamina stenosis. L3-4: Facet joint and ligamentum flavum hypertrophy. Broad-based disc bulging. Right neuroforamina narrowing. L4-5: Broad-based disc bulging. Facet joint and ligamentum flavum hypertrophy. Reduced AP diameter of the thecal sac and the neural foramina likely encroaching the neural elements. L5-S1: Broad-based disc bulging. Facet joint and ligamentum flavum hypertrophy. Facet effusion. Reduced AP diameter of the thecal sac and in the neural foramina more conspicuous on the left side encroaching the exiting nerve roots. No prevertebral compartment hematoma, mass or fluid collection. There is a 2.8 cm fluid signal characteristic structure in the related to the liver, gallbladder and or the stomach. MR/MR lumbar spine wo con IMPRESSION: Levoconvex scoliosis apex at L2-3 and multilevel spondylosis more conspicuous at L4-5 and to a lesser extent L5-S1 resulting in central spinal canal and neuroforamina stenosis encroaching the neural elements. Electronically signed by: London Bell MD 12/22/2024 07:24 AM EST
== END 2024-12-19 16:50 | disposition home or self-care (01) ==
LOC: HO.MRI 16:49
PROVIDERS: PCP Internal Medicine; Visit Provider Internal Medicine
DX: M54.50 Low back pain, unspecified (principal); G89.29 Other chronic pain
CPT/HCPCS: 72148

== ENCOUNTER 2025-02-16 14:58 | Outpatient (AMB) | payer OTHER, SELFPAY ==
--- OUTSIDE RECORDS SUMMARY | 2025-02-16 15:01 | XMS_ITS | Patient Health Record ---
Author Organization [facility] Address [address] [place] [address] Care Team Providers Care Statistical Clerk Advertising Name Role Phone Almas Carpenter Primary Care Provider Hardeep Beltran Unavailable [phone] Allergies Allergen (clinical drug ingredient) Drug/Non Drug [...] primary osteoarthritis of the ankle and/or foot (637440139) Primary osteoarthritis, left ankle and foot (M19.072) Active confirmed Problem Acquired hammer toe of right foot (9666533080732066) Other hammer toe(s) (acquired), right foot (M20.41) Active confirmed Problem Acquired hammer toe of left foot (3826027003860465) Other hammer toe(s) (acquired), left foot (M20.42) Active confirmed Problem 145219013 Venous insufficiency of both lower extremities (I87.2) Active confirmed Plan Of Treatment Pending Test Test Name Order Date X ray : Foot, left 2V 05/07/2019 X ray : Foot, right 2V 05/07/2019 X ray : Foot, left 3V 11/27/2022 Insurance Providers Payer Name Payer Address Payer Phone Subscriber Number Group Number Insured Name Patient Relationship to Insured Coverage Start Date Coverage End Date [facility] [address] [place] [phone] [id number] Cornel Avina Self - patient is the insured Medical (General) History Medical History History ICD Code Anxiety Back,Hip,and Knee pain Measles Chicken pox Surgical History Surgery Date(Month/Year) hernia 01/2010/01/2018
--- OUTSIDE RECORDS SUMMARY | 2025-02-16 15:01 | XMS_ITS | Clinical Summary ---
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 2017 classification 12/18/2024 10:00 AM EST Office Visit [facility] DENTAL [address] [place] [address] Stephanie Martinez DDS Pain, dental (Primary Dx) from Last 3 Months Social History Tobacco Use Types Packs/Day Years Used Date Smoking Tobacco: Former Cigarettes Passive Smoke Exposure: Never Smokeless Tobacco: Never Tobacco Cessation:Counseling Given: Not Answered Alcohol Use Standard Drinks/Week Comments Never 0 (1 standard drink = 0.6 oz pur e alcohol) Sex and Gender Information Value Date Recorded Sex Assigned at Male 03/19/2024 2:05 PM EDT Legal Sex Male 8:35 PM EDT Gender Identity Male 03/19/2024 2:05 PM EDT Sexual Orientation Choose not to disclose 2023 2:05 PM EDT Plan of Treatment Upcoming Encounters Date Type Department Care Team (Late st Contact Info) Description 03/05/2025 11:00 AM EDT Office Visit [facility] DENTAL [address] [place] [address] Stephanie Martinez DDS [address] [place], [place] [phone] 03/12/2025 12:00 PM EDT Office Visit [facility] DENTAL [address] [place], [place] [phone] Stephanie Martinez DDS [address] [place] [address] 03/19/2025 12:00 PM EDT Office Visit [facility] DENTAL [address] [facility] [place] [address] Stephanie Martinez DD [address] [place] [address] 03/26/2025 12:00 PM EDT Office Visit [facility] DENTAL [address] [facility] [place] [address] Stephanie Martinez DD [address] [place] [address] 04/22/2025 12:00 PM EDT Office Visit [facility] DENTAL [address] [facility] [place] [address] Priti Young 07/21/2025 2:00 PM EDT Office Visit [facility] DENTAL [address] [place] [address] Priti Young Health Maintenance Due Date Last Done Comments CT Colonography 1950 Colonoscopy 1950 Colorectal Cancer Screening 1950 Depression Screening 1950 FIT DNA/Cologuard 1950 FIT 1950 FOBT 1950 Lipid Panel 1950 SDOH Screening 1950 Sigmoidoscopy 1950 Alcohol/Substance Use Screening 1962 Hepatitis C Screening 1968 Pneumococcal Vaccine: 50+ Ye ars (1 of 1 - PCV) 2000 Zoster Vaccines (1 of 2) 2000 COVID-19 Vaccine (2023-2 5 season) 2024 Influenza Vaccine (#1) 2024 Dental Oral Exam 07/19/2025 01/15/2025 Dental Prophylaxis 07/19/2025 01/15/2025 Dental X-Ray: Bitewings 10/24/2025 10/23/2024 RSV Patients and Pa tients Aged 60 years or older (1 - 1-dose 75+ series) 2025 Tobacco Screening 01/15/2026 01/15/2025 DTaP/Tdap/Td Vaccines (2 - T d or [...] Procedure Name Priority Date/Time Associated Diagnosis Comments ORAL HYGIENE INSTRUCTIONS Routine 01/15/2025 9:30 AM EDT Full PROPHYLAXIS - ADULT Routine 025 9:30 AM EDT PERIODIC ORAL EVALUATION - ESTABLISHED PATIENT Routine 01/15/2025 9:30 AM EDT CASE PRESENTATION, DETAILED AND EXTENSIVE TREATMENT PLANNING Routine 12/18/2024 10:00 AM EST LIMITED ORAL EVALUATION - PROBLEM FOCUSED Routine 12/18/2024 10:00 AM EST INTRAORAL - COMPLETE SERIES OF RADIOGRAPHIC IMAGES Routine 10/23/2024 4:00 PM EST Dental caries Missing teeth, acquired Periodontal disease from Last 3 Months or Most Recently Relevant to Health Maintenance Insurance DENTAL - HSN FULL (MEDICAID) [id number]
[2025-02-16 15:16] VITALS: BP 130/68; PULSE 73; TEMP 36.3; O2SAT 97; BMI 34.0
--- NOTE | 2025-02-16 15:16 | MHC.PC.OV ---
Vital Signs 02/16/25 15:16 Height 5 ft 5 in Weight 204 lb 8 oz BMI 34.0 BP 130/68 Blood Pressure Location Lt brachial Position Sitting Pulse 73 Pulse Source Pulse Oximeter Temp 97.3 F Temp Source Temporal Artery Scan Pulse Oximetry (%) 97 Oxygen Delivery Method Room Air Intake Visit Reasons: Annual Exam Allergies metronidazole [Flagyl] Allergy (Mild, Verified 11/24/24 15:15) light headed Tobacco use date assessed: 11/24/24 Dental Screening Dental Screen Date: 11/24/24 HPI Annual Exam HPI Details Patient sees Dr. Jama was suppose to be having Physical and declined PE today. PAtient has seen Dr. Jama and had xray done of the hip and was told to see Dr. Ibarra March 13, 2025, Patient will be seeing Physical therapist first . going [facility]. [facility] Medical History (Updated 01/16/25 @ 18:18 by Almas Carpenter MD) Tinea corporis DVT (deep venous thrombosis) Dry skin dermatitis Venous stasis dermatitis Umbilical hernia Obesity (BMI 30-39.9) Renal calculi Obstructive sleep apnea Surgical History H/O inguinal hernia repair Social History Housing: House Alcohol intake: never Patient Tobacco Use Status: Former Tobacco user Tobacco use type: Cigarette Years Smoked: 1974 e-Cigarette/Vaping Use: Never Used Second Hand Smoke Exposure: Yes service: No Current occupational status: employed Cognitive needs: No Hearing needs: No Vision needs: Yes Questionnaire PHQ-9 Over the last 2 weeks, how often have you been bothered by any of the following problems? 1. Little interest or pleasure in doing things: not at all 2. Feeling down, depressed, or hopeless: not at all 3. Trouble falling or staying asleep, or sleeping too much: not at all 4. Feeling tired or having little energy: not at all 5. Poor appetite or overeating: not at all 6. Feeling bad about yourself - or that you are a failure or have let yourself or your family down: not at all 7. Trouble concentrating on things, such as reading the newspaper or watching television: not at all 8. Moving or speaking so slowly that other people could have noticed. Or the opposite - being so fidgety or restless that you have been moving around a lot more than usual: not at all 9. Thoughts that you would be better off or of hurting yourself in some way: not at all Total score: 0 Source: Developed by Drs. Gurpreet Rehman, Patricia Connolly, Saúl Hernández and colleagues, with an educational vasile from [employer]. Thrive Questionnaire Date Thrive assessed: 02/14/25 I am a: Patient What is your living situation today?: I have a steady place to live Within the past 12 months, did the food you bought not last and you didn't have the money to get more?: Never true Within the past 12 months, did you worry whether your food would run out before you got money to buy more?: Never true Do you have trouble paying for medicines?: No Do you have trouble getting transportation to medical appointments?: No Do you have trouble paying your heating and electricity bill?: Yes Do you have trouble taking care of your child, family member or friend?: No Do you have trouble with day-to-day activities such as bathing, preparing meals, shopping, managing finances, etc.?: No Are you currently unemployed and looking for a job?: No Are you interested in more education?: Yes Please select the resources that you would like help with: Utilities Currently or been in a relationship where the following occur: No concerns reported THRIVE Score: 1 AUDIT C Alcohol Use Questionnaire (AUDIT-C) 1. How often do you have a drink containing alcohol?: Never 3. How often do you have six or more drinks on one occasion?: Never Total Score: 0 DELANO-7 AMB Questionnaire DELANO-7 Date DELANO - 7 assessed: 11/24/24 Feeling nervous, anxious, or on edge: 0 = Not at all Not being able to stop or control worryin = Not at all Worrying too much about different things: 0 = Not at all Trouble relaxin = Not at all Being so restless that it is hard to sit still: 0 = Not at all Becoming easily annoyed or irritable: 0 = Not at all Feeling afraid as if something awful might happen: 0 = Not at all Total DELANO-7 score (0-4 normal; 5-9 mild; 10-14 moderate; 15-21 severe): 0 Source: Developed by Drs. Gurpreet Rehman, Patricia Connolly, Saúl Hernández and colleagues, with an educational vasile from [employer]. Review of Systems Const Denies poor appetite and Denies weakness Eyes Denies no additional complaints ENT Reports Normal hearing present, Denies dizziness, Denies nasal congestion, Denies tinnitus and Denies sore throat Card Denies chest pain, Denies syncope, Denies rapid heart rate and Denies dyspnea Resp Denies cough and Denies dyspnea GI Denies change in stool character, Reports constipation, Denies diarrhea, Denies nausea and Denies vomiting Denies dysuria and Denies urinary frequency Neuro Reports Normal hearing present, Denies confusion, Denies dizziness, Denies syncope and Denies weakness Psych Denies confusion Physical exam (Primary Care) Vital Signs: Last Vital Signs Temp 97.3 F 02/16/25 15:16 Oxygen Delivery Method Room Air 02/16/25 15:16 BMI result Body Mass Index 34.0 Tobacco/Smoking Status: Tobacco use Status Tobacco use date assessed 11/24/24 02/16/25 15:16 Patient Tobacco Use Status Former Tobacco user 02/16/25 15:16 Tobacco use type Cigarette 02/16/25 15:16 e-Cigarette/Vaping Use Never Used 02/16/25 15:16 PHQ-9: PHQ-9 Score PHQ-9: Total score 0 02/16/25 15:16 Thrive Assessment: Date of Thrive Assessment Date Thrive assessed 02/14/25 02/16/25 15:16 Currently or been in a relationship where the following occur: No concerns reported Const General: No confusion Orientation/consciousness: No confusion HENMT Head: Yes normocephalic Ears: external ears normal and TM's normal bilaterally Face and sinus: Yes normal facial exam Mouth: moist mucous membranes Throat: Yes tonsils normal Eyes Conjunctivae: conjunctivae normal Pupils: Equal, round and reactive pupils present and Pupil accommodation reflex normal Direct Ophthalmoscopy: normal light reflex Neck Neck: No lymphadenopathy Thyroid: Thyroid normal Chest Chest palpation & inspection: normal inspection of the chest Resp Effort & Inspection: normal respiratory effort and no audible wheezes Auscultation: clear to auscultation bilaterally, no crackles, no wheezes and lung sounds not diminished Cardio Rate: regular rate Rhythm: regular rhythm Peripheral pulses: radial pulses present and dorsalis pedis present GI Palpation (GI): no masses Auscultation: normal bowel sounds and normoactive bowel sounds Rectal Exam - Male: Yes deferred Skin General skin exam: no rashes or lesions noted Rashes: no rashes Neuro General: No confusion Cranial nerves: Yes Equal, round and reactive pupils present and Yes Normal hearing present Cognition (Neuro): normal cognition Gait exam (Neuro): Normal gait present Motor exam (neuro): 5/5 motor strength present throughout Deep tendon reflexes (DTR's): Right brachioradialis reflex intensity grade: 2+, Left brachioradialis reflex intensity grade: 2+, Right patellar reflex intensity grade: 2+ and Left patellar reflex intensity grade: 2+ Extrem General: No edema Coding Level of Care Code Est Pt Level 4 (15597) Diagnoses Obesity (BMI 30-39.9) E66.9 Obstructive sleep apnea G47.33 Lumbar spondylosis M47.816 Colon cancer screening Z12.11 Bilateral primary osteoarthritis of knee M17.0 Arthritis, hip M16.10 Assessment & Plan Assessment & Plan (1) Obesity (BMI 30-39.9): Code(s): E66.9 - Obesity, unspecified Category: Medical Plan: Diet and exercise (2) Obstructive sleep apnea: Comment: July 2019 Code(s): G47.33 - Obstructive sleep apnea (adult) (pediatric) Category: Medical Plan: Patient had some referral to the Neurology/sleep apnea specialty (3) Lumbar spondylosis: Code(s): M47.816 - Spondylosis without myelopathy or radiculopathy, lumbar region Category: Medical Plan: Patient sees chiropractor for this. (4) Colon cancer screening: Code(s): Z12.11 - Encounter for screening for malignant neoplasm of colon Category: Medical Plan: Patient is reminded about colon cancer screening (5) Bilateral primary osteoarthritis of knee: Code(s): M17.0 - Bilateral primary osteoarthritis of knee Category: Medical Plan: printed results of the 2022 xray results (6) Arthritis, hip: Code(s): M16.10 - Unilateral primary osteoarthritis, unspecified hip Category: Medical Plan: awaiting xray [address] Jama- will hve to ge the results Plan History of Present Illness The patient is a 74-year-old male presenting with hip arthritis and lumbar spondylosis. The right hip condition has deteriorated over time, exacerbated by prolonged use of an unsuitable car seat without any modifications. Initially mild in 2021, the degeneration had notably progressed by 2022. Despite various management strategies, including chiropractic interventions, the patient reports exacerbated functional limitations and pain, leading to the pursuit of surgical opinions and scheduling for potential hip replacement. Additional care for lumbar spondylosis is ongoing, supported by an MRI confirming multilevel spinal involvement. Obstructive sleep apnea management remains hindered by equipment malfunction, with rescheduling efforts required. The patient is yet to complete a previously recommended Cologuard screening, impacting his health maintenance schedule. 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 - Use of a consistent car seat contributing to musculoskeletal stress - Delayed communication with sleep apnea provider affecting treatment Review of Systems - Musculoskeletal: Reports ongoing hip and lumbar back pain - Respiratory: Reports use of malfunctioning CPAP machine for obstructive sleep apnea - Gastrointestinal: Denies completing Cologuard testing Physical Exam General: Cooperative, healthy appearing, comfortable, no acute distress and well developed Orientation: Patient oriented x3 Limitations: No limitations Head: Normal to inspection Ears: Hearing grossly normal bilaterally Nose: Normal external nose present Face and sinus: Normal facial exam Eyes: Appearance normal, both eyes and all related structures Neck: Normal visual inspection and Yes full ROM Respiratory: Normal respiratory effort and able to speak in complete sentences. Clear to auscultation bilaterally Cardiovascular: Regular rate and rhythm. Normal S1 and S2 GI: Normal to inspection. Soft to palpation and nontender Skin: No rashes or lesions noted Neuro: Patient oriented x3 Extremities: Normal to inspection, but patient has arthritis of the knee and hip. Right hip shows mild degenerative changes, and knee is moderate. Results - MRI: Multilevel spondylosis, central canal stenosis at L4-5 and L5-S1 - X-ray (2021): Mild degenerative changes in right hip - X-ray (2022): Progression to moderate changes in right hip Plan Management will include preparation for an anticipated hip replacement due to significant arthritis, evaluated further by Dr. Ibarra. Proactive pre-surgery physical therapy is recommended, with ongoing assessments for the associated lumbar spondylosis. For obstructive sleep apnea, coordinate the replacement of the unserviceable CPAP machine. It remains important to complete the overdue Cologuard screening. Apply heat therapy for muscle pain proximal to the affected hip. Patient was informed and verbally consented to the use of an ambient scribe for clinic note documentation during this visit. Discussion Notes We discussed with the patient the severe nature of his hip arthritis and the necessity of a joint replacement, substantiated by recent diagnostic imaging. We reviewed the probable causes of persistent hip and back pain, emphasizing pre-surgical physical therapy to strengthen the area. For sleep apnea, the patient is advised to resolve his CPAP machine issues with his provider promptly. The importance of completing the Cologuard test was reiterated to address colorectal cancer screening. We explored symptom management options, recommending heat therapy over cold for muscular pain relief. The upcoming surgical consultation was confirmed for March 13. Patient Instructions - Schedule and attend physical therapy sessions as recommended. - Ensure your CPAP machine is functional; arrange to meet with your sleep apnea service provider. - Complete and return the Cologuard screening test at the earliest opportunity. - Use a heating pad for muscle pain relief near the hip. - Follow up with Dr. Ibarra on March 13 for further evaluation and surgical planning. - Keep moving carefully and follow pre-surgical guidelines.
== END 2025-02-16 15:50 | disposition home or self-care (01) ==
LOC: HO.HMCH 14:59
PROVIDERS: PCP Internal Medicine; Visit Provider Internal Medicine
DX: G47.33 Obstructive sleep apnea (adult) (pediatric) (principal); M47.816 Spondylosis without myelopathy or radiculopathy, lumbar region; E66.9 Obesity, unspecified; Z68.34 Body mass index [BMI] 34.0-34.9, adult; M17.0 Bilateral primary osteoarthritis of knee; M16.11 Unilateral primary osteoarthritis, right hip; Z12.11 Encounter for screening for malignant neoplasm of colon

== ENCOUNTER → 2025-02-16 14:58 | Outpatient (BNVA) | payer OTHER, SELFPAY | PROVIDERS: PCP Internal Medicine; Visit Provider Internal Medicine ==

== ENCOUNTER 2025-04-15 11:11 | Outpatient (REF) | payer OTHER, SELFPAY ==
--- NOTE | ~2025-04-15 | XR_ITS ---
EXAMINATION: XR HIP, RIGHT CLINICAL INFORMATION: M16.10 - Unilateral primary osteoarthritis, unspecified hip COMPARISON: None available. TECHNIQUE: Two views of the right hip. FINDINGS: There is severe narrowing of the superior lateral right hip joint space. There is subchondral sclerosis and degenerative cystic change. There are marginal osteophytes. There is distal deformity of the proximal right femur. No abnormalities are evident. XR/XR hip RT min 2V IMPRESSION: Severe right hip osteoarthritis. Electronically signed by: Nikhil Caldwell MD 04/15/2025 12:18 PM EDT
--- OUTSIDE RECORDS SUMMARY | 2025-04-15 12:59 | XMS_ITS | Clinical Summary ---
Author Organization [employer] Address [address] [place] [address] 7 [place] [address] Care Team Providers Care Colon Therapist Name Role Phone Unavailable Primary Care Provider Unavailabl e Allergies No known active allergies Medications Tryptophan 500 MG capsule Take 1 capsule by mouth in the morning. Active aspirin (Aspirin Childrens) 81 MG chewable tablet Chew 81 mg in the morning. Active ascorbic acid (Vitamin C) 100 MG chewable tablet Chew 1 tablet Once per day. Active Encounters Date Type Department Care Team Description 03/26/2025 2:15 PM EDT Office Visit [facility] [address] [place] [phone] Stephanie Martinez DDS Dental caries (Primary Dx) 03/19/2025 12:00 PM EDT Office Visit [facility] [address] [place] [phone] Stephanie Martinez DDS Dental caries (Primary Dx) 03/05/2025 11:00 AM EDT Office Visit [facility] [address] [place] [phone] Stephanie Martinez DDS Dental abscess (Primary Dx); Periodontal disease 01/15/2025 9:30 AM EDT Office Visit [facility] [address] [place] [phone] Priti Young Encounter for dental examination (Primary Dx); Stage 2 grade B generalized periodontitis per AAP/EFP 2017 classification from Last 3 Months Social History Tobacco [...] Care Team (Late st Contact Info) Description 07/09/2025 11:00 AM EDT Office Visit [facility] [address] [place] [address] Stephanie Martinez MARILIAS [address] [place] [address] 07/16/2025 11:00 AM EDT Office Visit [facility] [address] [place] [address] Stephanie Martinez DD [address] [place] [address] 07/21/2025 2:00 PM EDT Office Visit [facility] [address] [place] [address] Priti Young 07/23/2025 11:00 AM EDT Office Visit [facility] [address] [place] [address] Stephanie Martinez DD [address] [place] [address] Health Maintenance Due Date Last Done Comments [...] Vaccine (2023-2 5 season) 2024 Influenza Vaccine (Season Ended) 2025 Dental Oral Exam 07/19/2025 01/15/2025 Dental Prophylaxis [...] patient's age to complete this topic Meningococcal B Vaccine Aged Out No l onger eligible based on patient's age to complete [...] Procedure Name Priority Date/Time Associated Diagnosis Comments 26 PULP CAP - INDIRECT (EXCLUDING FINAL CATHOLIC) Routine 03/26/2025 2:15 PM EDT 27 MF RESIN-BASED COMPOSITE - 2 SURF, ANTERIOR Routine 03/26/2025 2:15 PM EDT Dental caries 26 MDF RESIN-BASED COMPOSITE - 3 SURF, ANTERIOR Routine 03/26/2025 2:15 PM EDT Dental caries 23 DFF(V)L RESIN-BASED COMPOSITE - 3 SURF, ANTERIOR Routine 03/19/2025 12:00 PM EDT Dental caries 22 MFF(V) RESIN-BASED COMPOSITE - 2 SURF, ANTERIOR Routine 03/19/2025 12:00 PM EDT Dental caries CASE PRESENTATION, DETAILED AND EXTENSIVE TREATMENT PLANNING Routine 03/05/2025 11:00 AM EDT Dental abscess Periodontal disease 6 EXTRACTION, ERUPTED TOOTH OR EXPOSED ROOT (ELEVATION/FORCEPS REMOVAL) Routine 03/05/2025 11:00 AM EDT Dental abscess Periodontal disease 25 EXTRACTION Routine 03/05/2025 12:00 AM EDT ORAL HYGIENE INSTRUCTIONS Routine 01/15/2025 9:30 AM EDT Full PROPHYLAXIS - ADULT Routine 025 9:30 AM EDT PERIODIC ORAL EVALUATION - ESTABLISHED PATIENT Routine 01/15/2025 9:30 AM EDT INTRAORAL - COMPLETE SERIES OF RADIOGRAPHIC IMAGES Routine 10/23/2024 4:00 PM EST Dental caries Missing teeth, acquired Periodontal disease from Last 3 Months or Most Recently Relevant to Health Maintenance Insurance DENTAL - HSN FULL (MEDICAID) DENTAL - [place] MED[employer] PLUS HMO
== END 2025-04-15 11:12 | disposition home or self-care (01) ==
LOC: HO.XRAY 11:11
PROVIDERS: PCP Internal Medicine; Referring Provider Orthopaedic Surgery; Visit Provider Internal Medicine
DX: M16.11 Unilateral primary osteoarthritis, right hip (principal)
CPT/HCPCS: 73502

== ENCOUNTER → 2025-04-15 11:16 | Outpatient (BNV) | payer OTHER, SELFPAY | PROVIDERS: PCP Internal Medicine; Referring Provider Orthopaedic Surgery; Visit Provider Radiology Diagnostic Radiology | DX: M16.11 Unilateral primary osteoarthritis, right hip (principal) | CPT/HCPCS: 73502 ==

== ENCOUNTER 2025-04-17 14:52 | Outpatient (AMB) | payer OTHER, SELFPAY ==
[2025-04-17 14:55] VITALS: BP 124/70; PULSE 72; O2SAT 97; BMI 35.3
--- NOTE | 2025-04-17 14:55 | MHC.OFFVIS ---
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 Obstructive sleep apnea management remains hindered by equipment malfunction Installation Drafter Required: No Accompanied by: Self / Same As Patient Allergies metronidazole (Flagyl) Allergy (Mild, Verified 04/17/25 15:01) light headed HPI Comments Details: 74 year old new patient for armida evaluation per pcp. PSG was c/w AHI 23/ hr Oxygen Rolando to He goes to bed at various times and gets up at 7am, his tells him he snores and he goes to sleep in separate rooms, not to distrurb her sleep, especially if he is not using the machine. He continues to have difficulty with his cpap machine and needs a new machine as it is starting to deteriorate, he sees silver particles floating in the reservoir, despite cleaning it changing tubings, and replacing filters. He says the machine has changed his life, his concentration has improved with focus and attention. He uses the machine daily at night for >6-8 hours and feels refreshed. He denies abnormal sleep behaviors, he denies snoring, gasping for air. He suffers from depression which has improved significantly since starting therapy 4 years ago. His mood improves as he can be irritable due to his hip pain. RLS symptoms Numbness and tingling of r. big toe> l. big toe. Denies radiating pain, can keep him up at night, he paces and stretches he feet. Lumbar radiculopathy? R. hip is bone on bone. will f/u with Dr. Tomlinson consult for surgical replacements. [facility] Medical History Tinea corporis DVT (deep venous thrombosis) Dry skin dermatitis Venous stasis dermatitis Umbilical hernia Obesity (BMI 30-39.9) Renal calculi Obstructive sleep apnea Surgical History H/O inguinal hernia repair Social History Housing: House Alcohol intake: never Patient Tobacco Use Status: Former Tobacco user Tobacco use type: Cigarette Years Smoked: 1974 e-Cigarette/Vaping Use: Never Used Second Hand Smoke Exposure: Yes service: No Current occupational status: employed Cognitive needs: No Hearing needs: No Vision needs: Yes Physical Exam Vital Signs: Last Vital Signs Pulse 72 04/17/25 14:55 BP 124/70 04/17/25 14:55 Pulse Ox 97 04/17/25 14:55 Oxygen Delivery Method Room Air 04/17/25 14:55 BMI result Body Mass Index 35.3 limping due to hip pain. Const General: cooperative, comfortable and no acute distress Nutritional Appearance: overweight Orientation/consciousness: patient oriented x3 HEENT Face and sinus: Yes face symmetric Teeth and gingiva: other (Mallmpti score is 3) Eyes Pupils: Equal, round and reactive pupils present Neck Neck: Yes full ROM and Yes other (pain with ext and flexion) Resp Effort & Inspection: normal respiratory effort and able to speak in complete sentences Neuro Other: pitting edema bilaterally encouraged to wear compression stockings 2 hours daily and elevate the feet. General: patient oriented x3 and moves all extremities Cranial nerves: Yes Equal, round and reactive pupils present, Yes Normal accommodation reflex present, Yes Midline tongue present, Yes Ability to bilaterally rotate head present and Yes Ability to bilaterally elevate shoulders present Cognition (Neuro): normal cognition Gait exam (Neuro): Normal gait present and Other gait observations present (limping , leaning diffculty with ambulation and slow.) Motor exam (neuro): 5/5 motor strength present throughout and Pronator motor function present Deep tendon reflexes (DTR's): Right triceps reflex intensity grade: 2+, Left triceps reflex intensity grade: 2+, Rt Biceps (C5, C6): 2+, Left biceps reflex intensity grade: 2+, Right brachioradialis reflex intensity grade: 2+, Left brachioradialis reflex intensity grade: 2+, Right patellar reflex intensity grade: 2+, Left patellar reflex intensity grade: 2+, Right ankle reflex intensity grade: 2+ and Left ankle reflex intensity grade: 2+ Coordination: [id number] test normal Results Reviewed Results Reviewed: past med history Assessment & Plan Assessment & Plan (1) Obstructive sleep apnea: Comment: July 2019 Code(s): G47.33 - Obstructive sleep apnea (adult) (pediatric) Category: Medical Plan labs to r/o fatigue- evaluation study is >5 years old armida hst Orders: Orders RT home sleep study 04/17/25 G47.19 - Other hypersomnia Patient Instructions: Sleep Hygiene provided: set a scheduled bedtime and wake time to help regulate the circadian rhythm and balance the release of pituitary hormones. Sleep in a dark room, temperatures below 68 degrees, and no devices n bed. Limit caffeinated products 6 hours prior to bed, and limit fluids 2-4 hours prior to bed. Gentle night yoga, diffusing essential oils, and playing soft music can be relaxing. Coding Level of Care Code New Pt Level 4 (74823) Diagnoses Obstructive sleep apnea G47.33 Time Spent (min) 30
--- OUTSIDE RECORDS SUMMARY | 2025-04-17 14:55 | XMS_ITS | Clinical Summary ---
Author Organization [employer] Address [address] [place] [address] [address] [place] [address] Care Team Providers Care Meter And Service Line Inspector Name Role Phone Unavailable Primary Care Provider [...] Description 03/26/2025 2:15 PM EDT Office Visit [facility] [address] [place] [phone] Stephanie Martinez DDS Dental caries (Primary Dx) 03/19/2025 12:00 PM EDT Office Visit [facility] [address] [place] [phone] Stephanie Martinez DDS Dental caries (Primary Dx) 03/05/2025 11:00 AM EDT Office Visit [facility] [address] [place] [phone] Stephanie Martinez DDS Dental abscess (Primary Dx); Periodontal disease 01/15/2025 9:30 AM EDT Office Visit [facility] [address] [place] [phone] Priti Young Encounter for dental examination (Primary [...] Description 07/09/2025 11:00 AM EDT Office Visit [facility] [address] [place] [address] Stephanie Martinez MARILIAS [address] [place] [address] 07/16/2025 11:00 AM EDT Office Visit [facility] [address] [place] [address] Stephanie Martinez DD [address] [place] [address] 07/21/2025 2:00 PM EDT Office Visit [facility] [address] [place] [address] Priit Young 07/23/2025 11:00 AM EDT Office Visit [facility] [address] [place] [address] Stephanie Martinez DD [address] [place] [address] Health Maintenance Due Date Last Done Comments [...] 26 PULP CAP - INDIRECT (EXCLUDING FINAL RASTAFARI) Routine 03/26/2025 2:15 PM EDT 27 MF [...]
== END 2025-04-17 15:59 | disposition home or self-care (01) ==
LOC: HO.HSMS 14:53
PROVIDERS: PCP Internal Medicine; Visit Provider Physician Assistant Medical
DX: G47.33 Obstructive sleep apnea (adult) (pediatric) (principal)
CPT/HCPCS: 99204

== ENCOUNTER 2025-04-20 13:11 | Outpatient (AMB) | payer OTHER, MEDICAID, SELFPAY ==
--- NOTE | 2025-04-20 13:12 | MHC.OFFVIS ---
Intake Visit Reasons: TH-Rt hip discuss SHARIFA Intake Note: Cornel is a 74 year old male who presents today VIA telephone to discuss Right Hip OA & possible SHARIFA. Patient reports that he was previously booked for a SHARIFA with [facility]. He is asking how soon he can be booked as his is in emergent need of surgery. I explained that at this time we are booking in June of which he is not pleased with, I let him know that Dr. Tomlinson is the one who would determine medical necessity and if surgery needs to be sooner Allergies metronidazole (Flagyl) Allergy (Mild, Verified 04/20/25 13:12) light headed HPI HPI TH-Rt hip discuss SHARIFA: Details: Cornel is a 74 year old male who presents today VIA telephone to discuss Right Hip OA & possible SHARIFA. Patient reports that he was previously booked for a SHARIFA with [facility]. He is asking how soon he can be booked as his is in emergent need of surgery. I explained that at this time we are booking in June of which he is not pleased with, I let him know that Dr. Tomlinson is the one who would determine medical necessity and if surgery needs to be sooner. He describes a situation in which he was told he needed surgery because he had ?no cartilage?. It ended up being delayed because of some dental issues. He describes being otherwise healthy and being unable to get through his daily activities without pain. He is worried that if he does do too much he will further injure his hip. [facility] Medical History Tinea corporis DVT (deep venous thrombosis) Dry skin dermatitis Venous stasis dermatitis Umbilical hernia Obesity (BMI 30-39.9) Renal calculi Obstructive sleep apnea Surgical History H/O inguinal hernia repair Social History Housing: House Alcohol intake: never Patient Tobacco Use Status: Former Tobacco user Tobacco use type: Cigarette Years Smoked: 1974 e-Cigarette/Vaping Use: Never Used Second Hand Smoke Exposure: Yes service: No Current occupational status: employed Cognitive needs: No Hearing needs: No Vision needs: Yes Telehealth Telehealth Telehealth Platform: Telephone Location of provider rendering services: practice address Location of patient: address on file Patient Identification confirmed using: Name, : Yes Telehealth method: voice only Patient verbally consented to treatment: Yes Patient verbally consented to billing insurance company: Yes Patient informed of any privacy concerns related to visit: Yes Minutes spent on Phone/Video with Pt.: 15 Results Reviewed Results Reviewed: I personally reviewed relevant radiographs. There is severe osteoarthritis of the right hip. This has progressed compared to radiographs taken 2 years ago. The images are consistent with osteoarthritis with subchondral sclerosis and degenerative cystic changes. Of note a bone survey done in 2022 shows a significant S shaped rotoscoliosis of the thoracolumbar spine. Assessment & Plan Assessment & Plan (1) Osteoarthritis of right hip: Code(s): M16.11 - Unilateral primary osteoarthritis, right hip Category: Medical Plan: This is a 74-year-old gentleman with progressive and severe right hip osteoarthritis. I had a discussion with him regarding treatment options. This is not an emergency but it is certainly an indication for surgery and surgery would alleviate a portion of his discomfort and allow him to return to more normal ambulation. He describes his prior surgery has been canceled because of a dental infection. He states this has been resolved. In addition he has significant scoliosis of the thoracolumbar spine and I would like to see how he ambulates in order to better advise him on surgical risks and postoperative precautions. Nevertheless his arthritis is severe and he states it is affecting his life adversely and I think he is a candidate for arthroplasty. We can begin the preoperative clearance process. He has an appointment scheduled with me in a month in which we will have a further discussion and further evaluation of his gait pattern in the influence of a scoliosis on how he walks. In the meantime we will collect information so that we are able to help this patient with his pain sooner rather than later. Coding Level of Care Code Tele [facility] Pt Level 4 (38142) Diagnoses Osteoarthritis of right hip M16.11
--- OUTSIDE RECORDS SUMMARY | 2025-04-20 14:36 | XMS_ITS | Clinical Summary ---
Author Organization [employer] Address [address] [place] [address] 7 [place] [address] Care Team Providers Care Inspector And Unloader Name Role Phone Unavailable Primary Care Provider [...] Description 03/26/2025 2:15 PM EDT Office Visit [facility] [address] [place] [address] Stephanie Martinez DDS Dental caries (Primary Dx) 03/19/2025 12:00 PM EDT Office Visit [facility] [address] [place] [address] Stephanie Martinez DDS Dental caries (Primary Dx) 03/05/2025 11:00 AM EDT Office Visit [facility] [address] [place] [address] Stephanie Martinez DDS Dental abscess (Primary Dx); Periodontal disease from Last 3 Months Social History Tobacco [...] Description 07/09/2025 11:00 AM EDT Office Visit [facility] [address] [place] [address] Stephanie Martinez DDS [address] [place] [address] 07/16/2025 11:00 AM EDT Office Visit [facility] [address] [place] [address] Stephanie Martinez DDS [address] [place] [address] 07/21/2025 2:00 PM EDT Office Visit [facility] D[facility] [address] [place] [address] Priti Young 07/23/2025 11:00 AM EDT Office Visit [facility] [address] [place] [address] Stephanie Martinez DDS [address] [place] [address] Health Maintenance Due Date Last Done Comments [...] 26 PULP CAP - INDIRECT (EXCLUDING FINAL GNOSTICISM) Routine 03/26/2025 2:15 PM EDT 27 MF [...] 25 EXTRACTION Routine 03/05/2025 12:00 AM EDT Full PROPHYLAXIS - ADULT Routine [...] (MEDICAID) DENTAL - DQ [place] MEDICARE PLUS O
== END 2025-04-20 15:20 | disposition home or self-care (01) ==
LOC: HO.HOS 13:11
PROVIDERS: PCP Internal Medicine; Visit Provider Orthopaedic Surgery
DX: M16.11 Unilateral primary osteoarthritis, right hip (principal)
CPT/HCPCS: 99204

== ENCOUNTER 2025-05-18 11:33 | Outpatient (AMB) | payer OTHER, MEDICAID, SELFPAY ==
[2025-05-18 11:42] VITALS: BP 140/60; PULSE 76; RESP 16; TEMP 36.8; O2SAT 98; BMI 35.3
--- NOTE | 2025-05-18 11:42 | MHC.PC.OV ---
Vital Signs 05/18/25 11:42 Height 5 ft 5 in Weight 212 lb BMI 35.3 BP 140/60 H Blood Pressure Location Lt brachial Position Sitting Respiration 16 Pulse 76 Temp 98.3 F Temp Source Oral Pulse Oximetry (%) 98 Oxygen Delivery Method Room Air Intake Visit Reasons: Urgent/sx 06/21 Right SHARIFA Bushra Air Pollution Compliance Inspector Required: No Accompanied by: Self / Same As Patient Allergies metronidazole (Flagyl) Allergy (Mild, Verified 05/18/25 12:11) light headed Tobacco use date assessed: 05/18/25 Fall risk assessment: 1 Fall in past year Last assessed Fall Risk: 05/18/25 Dental Screening Dental Screen Date: 05/18/25 Did you have a dental visit in the last 12 months?: Yes Did you have a dental problem in the last 6 months where you did not have access to dental care?: No Was dental information given to patient?: Patient has dentist HPI Urgent/sx 06/21 Right SHARIFA Bushra HPI Details The patient is a 74-year-old male presenting with a preoperative evaluation for right total hip arthroplasty. He reports severe pain in the right hip, which is exacerbated by standing and walking, making these activities very painful. The patient has a history of two hernia surgeries and reports sensitivity to anesthesia, experiencing prolonged recovery times and grogginess post-procedure. The patient also has an umbilical hernia that has been monitored for five years and is reported to be worsening, causing pain. He prefers to delay hernia surgery until after the hip surgery to avoid multiple anesthesia exposures in a short period. The patient has a history of sleep apnea, which is managed with a CPAP machine, significantly improving his condition. He reports a significant weight gain due to decreased physical activity, as walking has become too painful. Surgeon/Location: [facility]. Tomlinson [facility] Anesthesia. Reports sensitivity to anesthesia with a prolonged recovery time. Patient reports that he is not allergic and it just takes a while for him to feel like himself again. Patient denies any post surgery hypothermia her clotting disorders and he is not on any blood thinners or DMARDs. Medical history is significant for recurrent abdomen hernias, obstructive sleep apnea, obesity, trochanteric bursitis of right hip, bilateral osteoarthritis of knee, hip Arthritis The patient was encouraged to stop NSAIDs 7 days before surgery [facility] Medical History Tinea corporis DVT (deep venous thrombosis) Dry skin dermatitis Venous stasis dermatitis Umbilical hernia Obesity (BMI 30-39.9) Renal calculi Obstructive sleep apnea Surgical History H/O inguinal hernia repair Social History Housing: House Alcohol intake: never Patient Tobacco Use Status: Former Tobacco user Tobacco use type: Cigarette Years Smoked: 1974 e-Cigarette/Vaping Use: Never Used Second Hand Smoke Exposure: Yes service: No Current occupational status: employed Cognitive needs: No Hearing needs: No Vision needs: Yes Questionnaire Thrive Questionnaire Date Thrive assessed: 05/18/25 I am a: Patient What is your living situation today?: I have a steady place to live Within the past 12 months, did the food you bought not last and you didn't have the money to get more?: Never true Within the past 12 months, did you worry whether your food would run out before you got money to buy more?: Never true Do you have trouble paying for medicines?: No Do you have trouble getting transportation to medical appointments?: No Do you have trouble paying your heating and electricity bill?: Yes Do you have trouble taking care of your child, family member or friend?: No Do you have trouble with day-to-day activities such as bathing, preparing meals, shopping, managing finances, etc.?: No Are you currently unemployed and looking for a job?: No Are you interested in more education?: Yes Please select the resources that you would like help with: Utilities Currently or been in a relationship where the following occur: No concerns reported THRIVE Score: 1 DELANO-7 AMB Questionnaire DELANO-7 Date DELANO - 7 assessed: 05/18/25 Source: Developed by Drs. Gurpreet Rehman, Patricia Connolly, Saúl Hernández and colleagues, with an educational vasile from [employer]. Review of Systems Const Denies headache(s) Eyes Denies loss of vision ENT Denies vertigo, Denies dizziness, Denies headache(s) and Denies sore throat Card Denies chest pain, Denies leg edema and Denies lightheadedness Resp Denies cough, Denies hemoptysis and Denies wheezing GI Reports abdominal pain (on an off discomfort-recurrent hernias), Denies melena, Denies constipation, Denies diarrhea and Denies vomiting Denies dysuria, Denies urinary frequency and Denies urinary urgency Musc Reports arthralgias (right hip pain), Denies joint swelling, Denies numbness and Denies tingling Neuro Denies Abnormal speech present, Denies behavioral changes, Denies vertigo, Denies dizziness, Denies headache(s), Denies loss of vision, Denies memory loss, Denies numbness and Denies tingling Psych Denies anxiety, Denies behavioral changes, Denies depression, Denies memory loss and Denies panic attacks Aaron/Lymph Denies easy bleeding and Denies easy bruising Aller/Immun Denies wheezing Physical exam (Primary Care) Vital Signs: Last Vital Signs Temp 98.3 F 05/18/25 11:42 Pulse 76 05/18/25 11:42 Resp 16 05/18/25 11:42 BP 140/60 H 05/18/25 11:42 Pulse Ox 98 05/18/25 11:42 Oxygen Delivery Method Room Air 05/18/25 11:42 BMI result Body Mass Index 35.3 Tobacco/Smoking Status: Tobacco use Status Tobacco use date assessed 05/18/25 05/18/25 11:46 Patient Tobacco Use Status Former Tobacco user 05/18/25 11:46 Tobacco use type Cigarette 05/18/25 11:46 e-Cigarette/Vaping Use Never Used 05/18/25 11:46 Thrive Assessment: Date of Thrive Assessment Date Thrive assessed 05/18/25 05/18/25 11:46 Currently or been in a relationship where the following occur: No concerns reported Const General: healthy appearing, no acute distress, alert and awake Nutritional Appearance: well nourished Orientation/consciousness: oriented to person, oriented to place and oriented to time HENMT Ears: TM's normal bilaterally General nose exam: Normal nasal mucous membranes and turbinates present Eyes Conjunctivae: conjunctivae normal Sclerae: sclerae normal Pupils: Equal, round and reactive pupils present Neck Neck: Yes no lymphadenopathy and Yes no JVD Thyroid: Thyroid normal Carotids: no bruits Resp Effort & Inspection: normal respiratory effort and not tachypneic Auscultation: no crackles, no rales, no rhonchi and no wheezes Cardio Rate: regular rate Rhythm: regular rhythm Heart sounds: S1 normal heart sound present, S2 normal heart sound present, no murmurs and normal S1 and S2 GI Inspection: Yes distended and Yes obesity Palpation (GI): Soft to palpation, nontender, no hepatomegaly, no splenomegaly and Hernia present ventral Auscultation: normal bowel sounds General: Yes no CVA tenderness Back/Spine/Pelvis Back: no CVA tenderness Skin General skin exam: no rashes or lesions noted and dry skin Neuro General: oriented to person, oriented to place and oriented to time Cranial nerves: Yes Equal, round and reactive pupils present Speech: No Abnormal speech present Gait exam (Neuro): Normal gait present Motor exam (neuro): no tremor noted Extrem Right upper extremity: full ROM Left upper extremity: full ROM Right lower extremity: full ROM and hip/thigh Details: tenderness; no edema Left lower extremity: full ROM; no edema Psych Mental Status: mental status grossly normal Speech and movement: Normal speech and movement present Affect: normal affect Attitude: cooperative Thought process: Normal thought process present Coding Level of Care Code Est Pt Level 4 (33009) Diagnoses Preoperative clearance Z01.818 Primary osteoarthritis of right hip M16.11 Osteoarthritis type: primary Obstructive sleep apnea G47.33 Ventral hernia without obstruction or gangrene K43.9 Obstruction and gangrene presence: without obstruction or gangrene Time Spent (min) 42 Assessment & Plan Assessment & Plan (1) Preoperative clearance: Code(s): Z01.818 - Encounter for other preprocedural examination Category: Medical (2) Osteoarthritis of right hip: Code(s): M16.11 - Unilateral primary osteoarthritis, right hip Category: Medical Qualifiers: Osteoarthritis type: primary Qualified Code(s): M16.11 - Unilateral primary osteoarthritis, right hip Plan: Continue NSAID (3) Obstructive sleep apnea: Comment: July 2019 Code(s): G47.33 - Obstructive sleep apnea (adult) (pediatric) Category: Medical (4) Ventral hernia: Code(s): K43.9 - Ventral hernia without obstruction or gangrene Category: Medical Qualifiers: Obstruction and gangrene presence: without obstruction or gangrene Qualified Code(s): K43.9 - Ventral hernia without obstruction or gangrene Plan The plan includes proceeding with the preoperative evaluation for the right total hip arthroplasty, ensuring all necessary clearances and tests are completed, including an EKG to assess cardiac function. The patient is advised to discontinue ibuprofen prior to surgery as per standard preoperative guidelines. Blood work will be arranged closer to the surgery date to ensure up-to-date results. The patient is encouraged to manage his weight and increase physical activity as tolerated, using a cane to aid mobility. The patient is advised to continue using the CPAP machine to manage sleep apnea effectively. Patient was informed and verbally consented to the use of an ambient scribe for clinic note documentation during this visit. Orders: Orders Hemoglobin A1c 05/18/25 Z01.818 - Encounter for other preprocedural examination Complete Blood Count Auto Diff 05/18/25 Z01.818 - Encounter for other preprocedural examination Prothrombin Time INR 05/18/25 Z01.818 - Encounter for other preprocedural examination ECG 12 lead EKG 05/18/25 M16.10 - Unilateral primary osteoarthritis, unspecified hip, M25.551 - Pain in right hip, Z01.818 - Encounter for other preprocedural examination Comprehensive Met. Panel 05/18/25 Z01.818 - Encounter for other preprocedural examination
--- OUTSIDE RECORDS SUMMARY | 2025-05-18 12:41 | XMS_ITS | Encounter Summary ---
Author Organization [facility] Address [address] [place] [address] Phone Care Team Providers Care Bee Tender Name Role Phone Radha Nance MD Primary Care Provider Skyler Montemayor NP Primary Care Provide r Encounter Details Date Type Department Care Team (Late st Contact Info) Description 08/25/2017 Ancillary Orders Virtual Department [address] [place] [address] Radha Nance MD [address] [facility] [address] [place] [address] [email or web address] H/O tobacco use, presenting hazards to health Social History Tobacco Use Types Packs/Day Years Used Date Smoking Tobacco: Never Assessed Sex and Gender Information Value Date Recorded Sex Assigned at Not on file Legal Sex Male 10:02 PM EDT Gender Identity Not on file Sexual Orientation Not on file documented as of this encounter Plan of Treatment Not on file documented as of this encounter Results * US Abdominal Aortic Screening (09/06/2017 11:29 AM EST) Anatomical Region Laterality Modality Abdomen Ultrasound 09/06/2017 1:53 PM EST Impressions 09/06/2017 1:54 PM EST No evidence of abdominal aortic aneurysm. POS - [id number] Narrative 09/06/2017 1:54 PM EST HISTORY: Cigarette smoking history. EXAM: Screening ultrasound of the abdominal aorta. COMPARISON: None. FINDINGS: The abdominal aorta is normal in course and caliber. Iliac arteries are normal in caliber. Procedure Note Alessandro Tamez MD - 09/06/2017 HISTORY: Cigarette smoking history. EXAM: Screening ultrasound of the abdominal aorta. COMPARISON: None. FINDINGS: The abdominal aorta is normal in course and caliber. Iliac arteries arenormal in caliber. IMPRESSION: No evidence of abdominal aortic aneurysm. POS - [id number] Radha Nance MD IMG US ABDOMEN Final Result documented in this encounter Visit Diagnoses Diagnosis H/O tobacco use, presenting hazards to health H/O tobacco use, presenting hazards to health documented in this encounter Care Teams Bee Tender Relationship Specialty Start Date End Date Radha Nance MD [address] [place] [address] PCP - General Family Medicine 08/28/17 10/08/19 Skyler Montemayor NP [address] [place] [address] [address] [place] [address] PCP - General 10/09/19 documented as of this encounter Additional Source Comments The information contained in this document represents components of the legal health record. It is not the complete legal health record.[facility]
--- OUTSIDE RECORDS SUMMARY | 2025-05-18 12:41 | XMS_ITS | Patient Health Record ---
Author Organization [facility] Address [address] [place] [address] Care Team Providers Care Hoop Machine Operator Name Role Phone Almas Carpenter Primary Care Provider Hardeep Beltran Unavailable [phone] Allergies Allergen (clinical drug ingredient) Drug/Non Drug [...] primary osteoarthritis of the ankle and/or foot (177619014) Primary osteoarthritis, left ankle and foot (M19.072) Active confirmed Problem Acquired hammer toe of right foot (6099519764437118) Other hammer toe(s) (acquired), right foot (M20.41) Active confirmed Problem Acquired hammer toe of left foot (9796462392620378) Other hammer toe(s) (acquired), left foot (M20.42) [...] Insured Coverage Start Date Coverage End Date [facility] [address] [place] Panch[place] [phone] [id number] Cornel Avina Self - patient is the insured Medical (General) History Medical History History ICD Code Anxiety Back,Hip,and Knee pain Measles Chicken pox Surgical History Surgery Date(Month/Year) hernia 01/2010/01/2018
--- OUTSIDE RECORDS SUMMARY | 2025-05-18 12:41 | XMS_ITS | Clinical Summary ---
Author Organization [employer] Address [address] [place] [address] 7 [place] [address] Care Team Providers Care Motion Picture Critic Name Role Phone Unavailable Primary Care Provider [...] Description 03/26/2025 2:15 PM EDT Office Visit [facility] DENTAL [address] [place] [address] Stephanie Martinez DDS Dental caries (Primary Dx) 03/19/2025 12:00 PM EDT Office Visit [facility] DENT[facility] [address] [place] [address] Stephanie Martinez DDS Dental caries (Primary Dx) 03/05/2025 11:00 AM EDT Office Visit [facility] DENTAL [address] [place] [address] Stephanie Martinez DDS Dental abscess (Primary Dx); [...] Description 07/09/2025 11:00 AM EDT Office Visit [facility] DENT[facility] [address] [place] [address] Stephanie Martinez DDS [address] [place] [address] 07/16/2025 11:00 AM EDT Office Visit [facility] DENT[facility] [address] [place] [address] Stephanie Martinez DDS [address] [place] [address] 07/21/2025 2:00 PM EDT Office Visit [facility] DENTAL [address] [place] [address] Priti Young 07/23/2025 11:00 AM EDT Office Visit [facility] DENT[facility] [address] [place] [address] Stephanie Martinez DDS [address] [place] [address] Health Maintenance Due Date Last Done Comments [...] 26 PULP CAP - INDIRECT (EXCLUDING FINAL TEMPLE) Routine 03/26/2025 2:15 PM EDT 27 MF [...]
== END 2025-05-18 14:15 | disposition home or self-care (01) ==
LOC: HO.HMCH 11:34
PROVIDERS: PCP Internal Medicine
DX: Z01.818 Encounter for other preprocedural examination (principal); M16.11 Unilateral primary osteoarthritis, right hip; G47.33 Obstructive sleep apnea (adult) (pediatric); K43.9 Ventral hernia without obstruction or gangrene

== ENCOUNTER 2025-05-28 09:09 | Outpatient (AMB) | payer OTHER, MEDICAID, SELFPAY ==
[2025-05-28 09:11] VITALS: BMI 35.3
--- NOTE | 2025-05-28 09:11 | MHC.OFFVIS ---
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 He was previously seen with [facility] and booked for SHARIFA but surgery was cancelled due to dental infection. This has since resolved and we discussd the procedure over the phone on 04/20/25. Today we will further discuss SHARIFA 06/23/25 booked for and evaluate gait pattern and influence of scoliosis on how he walks. 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 He had surgery scheduled at an outside clinic but was concerned about their attention to detail as he had dental in work required prior to surgery and felt rushed and did not want to end up doing his surgery there. He comes in today describing an inability to engage meaningful daily activities pain. He has inability to comfortably get dressed or getting into and out low chair vehicle. Pain localizes to groin and hip region. [facility] Medical History (Updated 05/28/25 @ 08:27 by Jennifer Mistry RN) Tinea corporis DVT (deep venous thrombosis) Dry skin dermatitis Venous stasis dermatitis Umbilical hernia Obesity (BMI 30-39.9) Renal calculi Obstructive sleep apnea Surgical History H/O inguinal hernia repair Social History Housing: House Alcohol intake: never Patient Tobacco Use Status: Former Tobacco user Tobacco use type: Cigarette Years Smoked: 1974 e-Cigarette/Vaping Use: Never Used Second Hand Smoke Exposure: Yes service: No Current occupational status: employed Cognitive needs: No Hearing needs: No Vision needs: Yes Physical Exam Vital Signs: BMI result Body Mass Index 35.3 Const General: cooperative, healthy appearing, no acute distress, well developed and alert HEENT Head: Yes normal to inspection, Yes normocephalic and Yes atraumatic Mouth: moist mucous membranes Eyes General: appearance normal, both eyes and all related structures EOM: EOMs intact bilaterally Chest Other: no audible wheezing. Resp Other: No audible wheezing Effort & Inspection: normal respiratory effort Cardio Other: Radial pulse palpable with no rythmic abnormalities Back/Spine/Pelvis Cervical Spine: normal cervical lordosis Skin General skin exam: no rashes or lesions noted Neuro General: no focal motor deficits Extrem Other: He has very mild bilateral discoloration of the lower legs but he states this was medication related not venous stasis. He has 2+ dorsalis pedis pulse and his neurologically intact with skin intact to light touch bilateral lower extremities. He has almost no internal rotation of the right hip and a clear reproduction of his pain when attempts to internally rotate. Psych Appearance: grossly normal and well kempt Mental Status: mental status grossly normal Speech and movement: Normal speech and movement present Affect: normal affect Attitude: cooperative Results Reviewed Results Reviewed: I personally reviewed relevant radiographs. There is severe right hip osteoarthritis. Assessment & Plan Assessment & Plan (1) Bilateral primary osteoarthritis of knee: Code(s): M17.0 - Bilateral primary osteoarthritis of knee Category: Medical Plan: Cornel is a 74-year-old with severe right hip osteoarthritis. He has limited both in motion in his ability to engage in meaningful daily activities. I think he would benefit from a right hip replacement. He has a history of sleep apnea and poor dentition. He has had the appropriate dental work however and has no current dental concerns. I did discuss the risks of surgery. These risks include the risk of infection, dislocation, fracture, leg length discrepancy, nerve injury as well as medical complications associated with surgery such as blood clots, pulmonary emboli, cardiopulmonary, complications, organ failure, pre or postoperative . Despite these risks he would like to proceed forward. He has his screening EKG upcoming and we will continue to monitor him to make sure that he continues to be a good candidate for surgery. Coding Level of Care Code Est Pt Level 3 (57492) Diagnoses Bilateral primary osteoarthritis of knee M17.0
--- OUTSIDE RECORDS SUMMARY | 2025-05-28 09:26 | XMS_ITS | Encounter Summary ---
Author Organization [facility] Address [address] [place] [address] Phone Care Team Providers Care General Warehouse Associate Name Role Phone Radha Nance MD Primary Care Provider Skyler Montemayor NP Primary Care Provide r Encounter Details Date Type Department Care Team (Late st Contact Info) Description 08/25/2017 Ancillary Orders Virtual Department [address] [place] [address] Radha Nance MD [address] [facility] [address] [place] [address] H/O tobacco use, presenting hazards to health [...] health documented in this encounter Care Teams General Warehouse Associate Relationship Specialty Start Date End Date Radha Nance MD [address] [place] [address] PCP - General Family Medicine 08/28/17 10/08/19 Skyler Montemayor NP [address] [place] [address] [address] [place] [address] PCP - General 10/09/19 documented as of this encounter Additional Source Comments The information contained in this document represents components of the legal health record. It is not the complete legal health record.[facility]
--- OUTSIDE RECORDS SUMMARY | 2025-05-28 09:26 | XMS_ITS | Patient Health Record ---
Author Organization [facility] Address [address] [address] Care Team Providers Care Cuff Matcher Name Role Phone Almas Carpenter Primary Care Provider Hardeep Beltran Unavailable [phone] Allergies Allergen (clinical drug ingredient) Drug/Non Drug [...] primary osteoarthritis of the ankle and/or foot (676963212) Primary osteoarthritis, left ankle and foot (M19.072) Active confirmed Problem Acquired hammer toe of right foot (3469021162995552) Other hammer toe(s) (acquired), right foot (M20.41) Active confirmed Problem Acquired hammer toe of left foot (3065214348682003) Other hammer toe(s) (acquired), left foot (M20.42) Active confirmed Problem Peripheral venous insufficiency (12069238) Venous insufficiency of both lower extremities (I87.2) Active confirmed Plan Of Treatment Pending Test Test Name Order Date X ray : Foot, left 2V 05/07/2019 X ray : Foot, right 2V 05/07/2019 X ray : Foot, left 3V 11/27/2022 Insurance Providers Payer Name Payer Address Payer Phone Subscriber Number Group Number Insured Name Patient Relationship to Insured Coverage Start Date Coverage End Date [facility] Plan [address] [place] P[place]al [phone] [id number] Cornel Avina Self - patient is the insured Medical (General) History Medical History History ICD Code Anxiety Back,Hip,and Knee pain Measles Chicken pox Surgical History Surgery Date(Month/Year) hernia 01/2010/01/2018
--- OUTSIDE RECORDS SUMMARY | 2025-05-28 09:26 | XMS_ITS | Clinical Summary ---
Author Organization [employer] Address [address] [place] [address] 7 [place] [address] Care Team Providers Care Arm Rest Builder Name Role Phone Unavailable Primary Care Provider [...] Description 03/26/2025 2:15 PM EDT Office Visit [facility] DENTAL [address] [place] [address] Stephanie Martinez DDS Dental caries (Primary Dx) 03/19/2025 12:00 PM EDT Office Visit [facility] DENTAL [address] [place] [address] Stephanie Martinez DDS Dental caries (Primary Dx) 03/05/2025 11:00 AM EDT Office Visit [facility] DENTAL [address] [place] [address] Stephanie Martinez DDS Dental abscess (Primary Dx); [...] Description 07/09/2025 11:00 AM EDT Office Visit [facility] DENTAL [address] [place] [address] Stephanie Martinez DDS [address] [place] [address] 07/16/2025 11:00 AM EDT Office Visit [facility] DENTAL [address] [place] [address] Stephanie Martinez DDS [address] [place] [address] 07/21/2025 2:00 PM EDT Office Visit [facility] DENTAL [address] [place] [address] Priti Young 07/23/2025 11:00 AM EDT Office Visit [facility] DENTAL [address] [place] [address] Stephanie Martinez DDS [address] [place] [address] Health Maintenance Due Date Last Done Comments [...] 26 PULP CAP - INDIRECT (EXCLUDING FINAL [place]GL[place]) Routine 03/26/2025 2:15 PM EDT 27 MF [...]
== END 2025-05-28 10:04 | disposition home or self-care (01) ==
PROVIDERS: PCP Internal Medicine; Visit Provider Orthopaedic Surgery
DX: M17.0 Bilateral primary osteoarthritis of knee (principal)
CPT/HCPCS: 99213

== ENCOUNTER → 2025-05-29 11:39 | Outpatient (BNV) | payer MEDICARE, MEDICAID, SELFPAY | PROVIDERS: PCP Internal Medicine; Visit Provider Internal Medicine Cardiovascular Disease | DX: R00.1 Bradycardia, unspecified (principal) | CPT/HCPCS: 93010 ==

== ENCOUNTER → 2025-05-29 13:04 | Outpatient (BNVA) | payer OTHER, MEDICAID, SELFPAY | PROVIDERS: PCP Internal Medicine | DX: Z01.818 Encounter for other preprocedural examination (principal) ==

== ENCOUNTER 2025-06-08 13:31 | Outpatient (AMB) | payer OTHER, SELFPAY ==
--- NOTE | 2025-06-08 13:43 | A.OFFPC_ITS ---
Vital Signs 06/08/25 13:44 Height 5 ft 5 in Weight 213 lb 4 oz BMI 35.5 BP 126/72 Blood Pressure Location Lt brachial Position Sitting Pulse 77 Pulse Source Pulse Oximeter Temp 97.3 F Temp Source Temporal Artery Scan Pulse Oximetry (%) 97 Oxygen Delivery Method Room Air Intake Visit Reasons: pe Intake Note: Patient is here today for a physical. Avid Editor Required: No Studio Camera Operator: Not Required per policy Accompanied by: Self / Same As Patient Allergies metronidazole (Flagyl) Allergy (Mild, Verified 06/08/25 13:43) light headed Medication List - Last Reconciled 06/08/25 by Almas Carpenter MD ascorbic acid (vitamin C) 500 mg PO BID aspirin 81 mg PO QAM calcium-magnesium 300-300 mg 1 tab PO BEDTIME compress.stocking,knee,reg,lrg As directed 20-30 mm HG [CPAP NASAL: 6-16 cm Humidified Air ] [Folding Front Wheeled walker Duration: 99 days] ibuprofen 600 mg PO Q6H PRN multivit [id number] 6-dha 29 mg iron-1 mg -300 mg caps PO .QD psyllium husk 0.52 grams PO BEDTIME pyridoxine (vitamin B6) ER 200 mg PO DAILY triamcinolone acetonide 0.025% 1 appl topical BID 14 days tryptophan 500 mg PO BEDTIME vitamin B complex 1 cap PO DAILY Tobacco use date assessed: 06/08/25 Fall risk assessment: No Falls in past year Last assessed Fall Risk: 06/08/25 Dental Screening Dental Screen Date: 05/18/25 [facility] Medical History (Updated 05/29/25 @ 10:24 by Jennifer Mistry RN) Arthritis Depression ARMIDA on CPAP Anesthesia complication Dry skin dermatitis Venous stasis dermatitis Umbilical hernia Obesity (BMI 30-39.9) Renal calculi Surgical History H/O inguinal hernia repair Social History (Updated 06/08/25 @ 14:22 by Almas Carpenter MD) Housing: House Are you a primary child care center administrator to a significant other at home: No Do you presently have visiting nurse or other home services: No Alcohol intake: never Patient Tobacco Use Status: Former Tobacco user Tobacco use type: Cigarette Years Smoked: 8 quit 1975 e-Cigarette/Vaping Use: Never Used Second Hand Smoke Exposure: Yes service: No Current occupational status: employed Cognitive needs: No Hearing needs: No Vision needs: Yes (Glasses) Questionnaire Thrive Questionnaire Date Thrive assessed: 05/18/25 I am a: Patient What is your living situation today?: I have a steady place to live Within the past 12 months, did the food you bought not last and you didn't have the money to get more?: Never true Within the past 12 months, did you worry whether your food would run out before you got money to buy more?: Never true Do you have trouble paying for medicines?: No Do you have trouble getting transportation to medical appointments?: No Do you have trouble paying your heating and electricity bill?: Yes Do you have trouble taking care of your child, family member or friend?: No Do you have trouble with day-to-day activities such as bathing, preparing meals, shopping, managing finances, etc.?: No Are you currently unemployed and looking for a job?: No Are you interested in more education?: Yes Please select the resources that you would like help with: Utilities Currently or been in a relationship where the following occur: No concerns reported THRIVE Score: 1 DELANO-7 AMB Questionnaire DELANO-7 Date DELANO - 7 assessed: 05/18/25 Source: Developed by Drs. Gurpreet Remhan, Patricia Connolly, Saúl Hernández and colleagues, with an educational vasile from [employer]. Review of Systems Const Denies poor appetite and Denies weakness Eyes Denies no additional complaints ENT Reports Normal hearing present, Denies dizziness, Denies nasal congestion, Denies tinnitus and Denies sore throat Card Denies chest pain, Denies syncope, Denies rapid heart rate and Denies dyspnea Resp Denies cough and Denies dyspnea GI Denies change in stool character, Reports constipation, Denies diarrhea, Denies nausea and Denies vomiting Denies dysuria and Denies urinary frequency Neuro Reports Normal hearing present, Denies confusion, Denies dizziness, Denies syncope and Denies weakness Psych Denies confusion Physical exam (Primary Care) Vital Signs: Last Vital Signs Temp 97.3 F 06/08/25 13:44 Pulse 77 06/08/25 13:44 BP 126/72 06/08/25 13:44 Pulse Ox 97 06/08/25 13:44 Oxygen Delivery Method Room Air 06/08/25 13:44 BMI result Body Mass Index 35.5 Tobacco/Smoking Status: Tobacco use Status Tobacco use date assessed 06/08/25 06/08/25 13:48 Patient Tobacco Use Status Former Tobacco user 06/08/25 14:22 Tobacco use type Cigarette 06/08/25 14:22 e-Cigarette/Vaping Use Never Used 06/08/25 14:22 Thrive Assessment: Date of Thrive Assessment Date Thrive assessed 05/18/25 06/08/25 13:48 Currently or been in a relationship where the following occur: No concerns reported Const General: No confusion Orientation/consciousness: No confusion HENMT Head: Yes normocephalic Ears: external ears normal and TM's normal bilaterally Face and sinus: Yes normal facial exam Mouth: moist mucous membranes Throat: Yes tonsils normal Eyes Conjunctivae: conjunctivae normal Pupils: Equal, round and reactive pupils present and Pupil accommodation reflex normal Direct Ophthalmoscopy: normal light reflex Neck Neck: No lymphadenopathy Thyroid: Thyroid normal Chest Chest palpation & inspection: normal inspection of the chest Resp Effort & Inspection: normal respiratory effort and no audible wheezes Auscultation: clear to auscultation bilaterally, no crackles, no wheezes and lung sounds not diminished Cardio Rate: regular rate Rhythm: regular rhythm Peripheral pulses: radial pulses present and dorsalis pedis present GI Other: guaiac neg prostate N Palpation (GI): no masses Auscultation: normal bowel sounds and normoactive bowel sounds Male General Exam: Yes normal external exam Skin General skin exam: no rashes or lesions noted Rashes: no rashes Neuro General: No confusion Cranial nerves: Yes Equal, round and reactive pupils present and Yes Normal hearing present Cognition (Neuro): normal cognition Gait exam (Neuro): Normal gait present Motor exam (neuro): 5/5 motor strength present throughout Deep tendon reflexes (DTR's): Right brachioradialis reflex intensity grade: 2+, Left brachioradialis reflex intensity grade: 2+, Right patellar reflex intensity grade: 2+ and Left patellar reflex intensity grade: 2+ Extrem Other: 1+ edema bilateral General: Yes edema Coding Level of Care Code Est Pt Prev Care >65y(03605) Diagnoses Annual physical exam Z00.00 Obstructive sleep apnea G47.33 Lumbar spondylosis M47.816 Bilateral primary osteoarthritis of knee M17.0 Primary osteoarthritis of right hip M16.11 Osteoarthritis type: primary Colon cancer screening Z12.11 Obesity (BMI 30-39.9) E66.9 Venous stasis dermatitis I87.2 Assessment & Plan Assessment & Plan (1) Annual physical exam: Code(s): Z00.00 - Encounter for general adult medical examination without abnormal findings Category: Medical Plan: Patient is advised to eat healthy, keep well hydrated, keep active and have adequate sleep. (2) Obstructive sleep apnea: Code(s): G47.33 - Obstructive sleep apnea (adult) (pediatric) Category: Medical Plan: Patient has seen Neurology and was advised to get a sleep study (3) Lumbar spondylosis: Code(s): M47.816 - Spondylosis without myelopathy or radiculopathy, lumbar region Category: Medical Plan: Keep active lose the weight (4) Bilateral primary osteoarthritis of knee: Code(s): M17.0 - Bilateral primary osteoarthritis of knee Category: Medical Plan: Patient sees Orthopedics (5) Osteoarthritis of right hip: Code(s): M16.11 - Unilateral primary osteoarthritis, right hip Category: Medical Qualifiers: Osteoarthritis type: primary Qualified Code(s): M16.11 - Unilateral primary osteoarthritis, right hip Plan: Patient is follows up with orthopedics and planned right hip arthroplasty (6) Colon cancer screening: Code(s): Z12.11 - Encounter for screening for malignant neoplasm of colon Category: Medical Plan: Patient is reminded about colonoscopy (7) Obesity (BMI 30-39.9): Code(s): E66.9 - Obesity, unspecified Category: Medical Plan: Diet and exercise (8) Venous stasis dermatitis: Code(s): I87.2 - Venous insufficiency (chronic) (peripheral) Category: Medical Plan: When sitting down elevate the legs, exercise, and support stockings Plan History of Present Illness The patient is a 74-year-old male presenting for a physical examination and management of chronic conditions. The patient has a history of obesity, which has been associated with weight gain over time. He also has venous stasis dermatitis and obstructive sleep apnea, for which he uses a CPAP machine. The patient suffers from primary osteoarthritis of the knee and chronic low back pain with lumbar spondylosis. An MRI conducted in November revealed levoconvex scoliosis with an apex at L2-L3 and multilevel spondylosis, with more pronounced arthropathy at L4-L5 and L5-S1, resulting in lumbar foraminal stenosis encroaching on neural elements. The patient is scheduled for a right hip arthroplasty due to narrowing of the right hip joint, as seen on an X-ray from 2021. He follows up with orthopedics and has had recent blood work in preparation for the surgery. Health Maintenance - Colonoscopy reminder for post-surgery - Encouraged to maintain physical activity and weight management Social History - Former smoker, quit in August 1975 - Former alcohol user, quit in January 1996 - Vegetarian diet, avoids eggs and pork - Uses a CPAP machine for obstructive sleep apnea Review of Systems - General: Denies dizziness, nausea, vomiting, fever - Cardiovascular: Denies chest pain, heartburn, reports shallow breathing - Respiratory: Denies dyspnea, reports no shortness of breath on exertion - Gastrointestinal: Reports regular bowel movements, denies constipation or blood in stool - Genitourinary: Reports nocturia once or twice per night - Neurological: Denies loss of consciousness, dizziness Physical Exam General: Cooperative, healthy appearing, comfortable, no acute distress and well developed Orientation: Patient oriented x3 Limitations: No limitations Head: Normal to inspection Ears: Hearing grossly normal bilaterally, though patient notes hearing is not great but not bad enough to require testing Nose: Normal external nose present Face and sinus: Normal facial exam Eyes: Appearance normal, both eyes and all related structures Neck: Normal visual inspection and Yes full ROM Respiratory: Normal respiratory effort and able to speak in complete sentences. Clear to auscultation bilaterally Cardiovascular: Regular rate and rhythm. Normal S1 and S2 GI: Normal to inspection. Soft to palpation and nontender, except for pain noted in the stomach area and hernia near the belly button Skin: No rashes or lesions noted Neuro: Patient oriented x3 Extremities: Normal to inspection, though patient reports chronic low back pain and knee osteoarthritis, and pain in the leg. Results - MRI: Levoconvex scoliosis with apex at L2-L3, multilevel spondylosis, lumbar foraminal stenosis - X-ray: Narrowing of right hip joint Plan The patient is advised to maintain physical activity and focus on weight management to address obesity and its associated conditions. He is scheduled for a right hip arthroplasty and should continue follow-up with orthopedics. For obstructive sleep apnea, the patient should continue using the CPAP machine and consider a sleep study to evaluate the current status of his condition. A colonoscopy is recommended post-surgery as part of preventative care. The patient should undergo fasting blood tests to evaluate cholesterol, thyroid function, and other parameters as part of routine health maintenance. Patient was informed and verbally consented to the use of an ambient scribe for clinic note documentation during this visit. Discussion Notes During the visit, I discussed with the patient the importance of maintaining physical activity and weight management to address obesity. We reviewed the upcoming right hip arthroplasty and the need for continued orthopedic follow-up. I advised the patient to continue using the CPAP machine for obstructive sleep apnea and consider a sleep study to reassess his condition. A colonoscopy was re commended post-surgery as part of his preventative care plan. We also discussed the need for fasting blood tests to monitor cholesterol, thyroid function, and other health parameters. Patient Instructions - Maintain physical activity and focus on weight management. - Continue using the CPAP machine for sleep apnea. - Schedule and attend the right hip arthroplasty and follow-up with orthopedics. - Plan for a colonoscopy after surgery. - Complete fasting blood tests as advised. Orders: Orders Hemoglobin A1c Today Z01.818 - Encounter for other preprocedural examination
--- OUTSIDE RECORDS SUMMARY | 2025-06-08 13:43 | XMS_ITS | Clinical Summary ---
Author Organization [employer] Address [address] [place] [address] [place] [address] Care Team Providers Care Notching Press Operator Name Role Phone Unavailable Primary Care Provider [...] Description 03/26/2025 2:15 PM EDT Office Visit [facility] [address] [place] [address] Stephanie Martinez DDS Dental caries (Primary Dx) 03/19/2025 12:00 PM EDT Office Visit [facility] [address] [place] [address] Stephanie Martinez DDS Dental caries (Primary Dx) [...] Description 07/09/2025 11:00 AM EDT Office Visit [facility] [address] [place] [address] Stephanie Martinez DDS [address] [place], [place] [id number] 07/16/2025 11:00 AM EDT Office Visit [facility] [address] [place] [address] Stephanie Martinez DDS [address] [place] [address] 07/21/2025 2:00 PM EDT Office Visit [facility] [address] [place] [address] Priti Young 07/23/2025 11:00 AM EDT Office Visit [facility] [address] [place] [address] Stephanie Martinez DDS [address] [place] [address] Health Maintenance Due Date Last Done Comments [...] 26 PULP CAP - INDIRECT (EXCLUDING FINAL MORMONISM) Routine 03/26/2025 2:15 PM EDT 27 MF [...] Routine 03/19/2025 12:00 PM EDT Dental caries Full PROPHYLAXIS - ADULT Routine 025 9:30 [...]
--- OUTSIDE RECORDS SUMMARY | 2025-06-08 13:43 | XMS_ITS | Encounter Summary ---
Author Organization [facility] Address [address] [facility] [address] [place] [address] Phone Care Team Providers Care Team Cdl Driver Name Role Phone Radha Nance MD Primary Care Provider Skyler Montemayor NP Primary Care Provide r Encounter Details Date Type Department Care Team (Late st Contact Info) Description 08/25/2017 Ancillary Orders Virtual Department [address] [place] [address] Radha Nance MD [address] [facility] [address] [place] [address] [email or web address] H/O tobacco use, presenting hazards to health [...] health documented in this encounter Care Teams Team Cdl Driver Relationship Specialty Start Date End Date Radha Nance MD [address] [place] [id number] PCP - General Family Medicine 08/28/17 10/08/19 Skyler Montemayor NP [address] [place] [address] [address] [place] [address] PCP - General 10/09/19 documented as of this encounter Additional Source Comments The information contained in this document represents components of the legal health record. It is not the complete legal health record.[facility]
[2025-06-08 13:44] VITALS: BP 126/72; PULSE 77; TEMP 36.3; O2SAT 97; BMI 35.5
== END 2025-06-08 14:40 | disposition home or self-care (01) ==
LOC: HO.HMCH 13:32
PROVIDERS: PCP Internal Medicine; Visit Provider Internal Medicine
DX: Z00.00 Encounter for general adult medical examination without abnormal findings (principal); E66.9 Obesity, unspecified; Z68.35 Body mass index [BMI] 35.0-35.9, adult; G47.33 Obstructive sleep apnea (adult) (pediatric); M47.816 Spondylosis without myelopathy or radiculopathy, lumbar region; M17.0 Bilateral primary osteoarthritis of knee; M16.11 Unilateral primary osteoarthritis, right hip; Z12.11 Encounter for screening for malignant neoplasm of colon; I87.2 Venous insufficiency (chronic) (peripheral)

== ENCOUNTER 2025-06-17 08:36 | Outpatient (REF) | payer OTHER, SELFPAY ==
--- OUTSIDE RECORDS SUMMARY | 2025-06-17 09:16 | XMS_ITS | Encounter Summary ---
Author Organization Located Within [facility] Address [address] [place] [address] Phone Care Team Providers Care Time Checker Name Role Phone Radha Nance MD Primary Care Provider Skyler Montemayor NP Primary Care Provide r Encounter Details Date Type Department Care Team (Late st Contact Info) Description 08/25/2017 Ancillary Orders Virtual Department [address] [place] [address] Radha Nance MD [address] [facility] [address] [place] [address] [email or web address] H/O tobacco use, presenting hazards to health [...] health documented in this encounter Care Teams Time Checker Relationship Specialty Start Date End Date Radha Nance MD [address] [place] [address] PCP - General Family Medicine 08/28/17 10/08/19 Skyler Montemayor NP [address] [place] [address] [address] [place] [address] PCP - General 10/09/19 documented as of this encounter Additional Source Comments The information contained in this document represents components of the legal health record. It is not the complete legal health record.Located [facility]
--- OUTSIDE RECORDS SUMMARY | 2025-06-17 09:16 | XMS_ITS | Patient Health Record ---
Author [facility] Address [address] [place] [address] Care Team Providers Care Load Dropper Name Role Phone Almas Carpenter Primary Care Provider Hardeep Beltran Unavailable [phone] Allergies Allergen (clinical drug ingredient) Drug/Non Drug [...] primary osteoarthritis of the ankle and/or foot (549560407) Primary osteoarthritis, left ankle and foot (M19.072) Active confirmed Problem Acquired hammer toe of right foot (7277569274256930) Other hammer toe(s) (acquired), right foot (M20.41) Active confirmed Problem Acquired hammer toe of left foot (5372321395312840) Other hammer toe(s) (acquired), left foot (M20.42) Active confirmed Problem Peripheral venous insufficiency (74879206) Venous insufficiency of both lower extremities (I87.2) Active confirmed Plan Of Treatment Pending Test Test Name Order Date X ray : Foot, left 2V 05/07/2019 X ray : Foot, right 2V 05/07/2019 X ray : Foot, left 3V 11/27/2022 Insurance Providers Payer Name Payer Address Payer Phone Subscriber Number Group Number Insured Name Patient Relationship to Insured Coverage Start Date Coverage End Date [facility] Plan [address] DIDIER Panchal [phone] [id number] Cornel Avina Self - patient is the insured Medical (General) History Medical History History ICD Code Anxiety Back,Hip,and Knee pain Measles Chicken pox Surgical History Surgery Date(Month/Year) hernia 01/2010/01/2018
--- OUTSIDE RECORDS SUMMARY | 2025-06-17 09:16 | XMS_ITS | Clinical Summary ---
Author Organization [employer] Address [address] [place] [address] [place] [address] Care Team Providers Care Food Service Order Clerk Name Role Phone Unavailable Primary Care Provider [...] Description 03/26/2025 2:15 PM EDT Office Visit [facility] [address] [place] [address] Stephanie Martinez DDS Dental caries (Primary Dx) 03/19/2025 12:00 PM EDT Office Visit [facility] D[facility] [address] [place] [address] Stephanie Martinez DDS Dental caries (Primary Dx) [...] Description 07/09/2025 11:00 AM EDT Office Visit [facility] [address] [place] [address] Stephanie Martinez DDS [address] [place], [place] [phone] 07/16/2025 11:00 AM EDT Office Visit [facility] DENTAL [address] [place] [address] Stephanie Martinez DDS [address] [place] [address] 07/21/2025 2:00 PM EDT Office Visit [facility] DENTAL [address] [place] [address] Priti Young 07/23/2025 11:00 AM EDT Office Visit [facility] DENT[facility] [address] [place] [address] Stephanie Martinez DDS [address] [place] [address] Health Maintenance Due Date Last Done Comments [...] this topic Meningococcal Vaccine Aged Out No lcarisa yessi eligible based on patient's age to complete this topic RSV under 20 months Aged Out No longe r eligible based on patient's age to complete this topic Rotavirus Vaccines Aged Out No longer eligible based on patient's age to complete this topic Procedures Procedure Name Priority Date/Time Associated Diagnosis Comments 26 PULP CAP - INDIRECT (EXCLUDING FINAL JEHOVAH'S WITNESS) Routine 03/26/2025 2:15 PM EDT 27 MF [...]
== END 2025-06-17 08:37 | disposition home or self-care (01) ==
LOC: HO.HOSX 08:36
PROVIDERS: Visit Provider Physician Assistant
DX: Z13.89 Encounter for screening for other disorder (principal)

== ENCOUNTER → 2025-06-18 10:01 | Outpatient (BNV) | payer OTHER, SELFPAY | PROVIDERS: Visit Provider Radiology Diagnostic Radiology | DX: Z96.641 Presence of right artificial hip joint (principal) | CPT/HCPCS: 73502 ==

== ENCOUNTER 2025-06-18 10:02 | Outpatient (AMB) | payer OTHER, MEDICAID, SELFPAY ==
--- NOTE | 2025-06-17 08:37 | MHC.OFFVIS ---
Intake Visit Reasons: Pre-Op: R SHARIFA w/NE 06/23/25 Intake Note: Cornel is a 74 year old male who presents today for a preoperative visit for a scheduled right total hip arthroplasty, DOS 06/23/[address] Tomlinson. Pain management agreement reviewed and signed. Allergies metronidazole (Flagyl) Allergy (Mild, Verified 06/18/25 10:18) light headed Medication List - Last Reconciled 06/18/25 by Laura Jacinto PA-C ascorbic acid (vitamin C) 500 mg PO BID aspirin 81 mg PO QAM calcium-magnesium 300-300 mg 1 tab PO BEDTIME compress.stocking,knee,reg,lrg As directed 20-30 mm HG [CPAP NASAL: 6-16 cm Humidified Air ] [Folding Front Wheeled walker Duration: 99 days] ibuprofen 600 mg PO Q6H PRN multivit [id number] 6-dha 29 mg iron-1 mg -300 mg caps PO .QD psyllium husk 0.52 grams PO BEDTIME pyridoxine (vitamin B6) ER 200 mg PO DAILY triamcinolone acetonide 0.025% 1 appl topical BID 14 days tryptophan 500 mg PO BEDTIME vitamin B complex 1 cap PO DAILY HPI Comments Details: Mr Avina presents to the office today for Orthopedic Pre op clearance. He is scheduled for right total hip arthroplasty with Dr. Tomlinson on 06/23/2025. He has been experiencing right hip pain for at least the last 4-6 months which has been progressively getting worse and limiting his ability to perform daily activities. Patient lives at home with his in a 1 level home with 3 steps to enter. Patient was seen by his primary care physician on 05/18/25 and 06/08/2025: The plan includes proceeding with the preoperative evaluation for the right total hip arthroplasty, ensuring all necessary clearances and tests are completed, including an EKG to assess cardiac function. The patient is advised to discontinue ibuprofen prior to surgery as per standard preoperative guidelines. Blood work will be arranged closer to the surgery date to ensure up-to-date results. The patient is encouraged to manage his weight and increase physical activity as tolerated, using a cane to aid mobility. The patient is advised to continue using the CPAP machine to manage sleep apnea effectively. The patient did not complete ordered labs an EKG. However, anesthesia is okay with his labs that he did in February of 2025. Anesthesia also completed an EKG and they are okay with the results. That being said, the patient is clear to proceed with surgery. Of note, the patient denies a h/o DVT ,PE. [facility] Medical History (Updated 05/29/25 @ 10:24 by Jennifer Mistry RN) Arthritis Depression ARMIDA on CPAP Anesthesia complication Dry skin dermatitis Venous stasis dermatitis Umbilical hernia Obesity (BMI 30-39.9) Renal calculi Surgical History H/O inguinal hernia repair Social History Housing: House Are you a primary home care administrator to a significant other at home: No Do you presently have visiting nurse or other home services: No Alcohol intake: never Patient Tobacco Use Status: Former Tobacco user Tobacco use type: Cigarette Years Smoked: 8 quit 1975 e-Cigarette/Vaping Use: Never Used Second Hand Smoke Exposure: Yes service: No Current occupational status: employed Cognitive needs: No Hearing needs: No Vision needs: Yes (Glasses) Review of Systems Const All systems reviewed & are unremarkable except as noted in HPI and below Physical Exam Const General: cooperative, healthy appearing, comfortable and no acute distress Orientation/consciousness: patient oriented x3 HEENT Head: Yes normal to inspection and Yes atraumatic Ears: hearing grossly normal bilaterally Mouth: moist mucous membranes Eyes General: appearance normal, both eyes and all related structures EOM: EOMs intact bilaterally Neck Neck: Yes normal visual inspection and Yes no lymphadenopathy Chest Other: no audible wheezing. Resp Other: No audible wheezing Effort & Inspection: normal respiratory effort and able to speak in complete sentences Cardio Other: Radial pulse palpable with no rythmic abnormalities Peripheral pulses: Peripheral pulses 2+ throughout Back/Spine/Pelvis Cervical Spine: normal cervical lordosis Skin General skin exam: no rashes or lesions noted Neuro General: patient oriented x3 Extrem Other: Right hip skin intact, no open wounds. Very limited internal rotation of the right hip with pain He has very mild bilateral discoloration of the lower legs, No pitting edema. He has 2+ dorsalis pedis pulse and his neurologically intact with skin intact to light touch bilateral lower extremities. Psych Appearance: well kempt Mental Status: mental status grossly normal Speech and movement: Normal speech and movement present Affect: normal affect Attitude: cooperative Results Reviewed Results Reviewed: Xrays were obtained in the office today and personally reviewed by me of the right hip for surgical planning. Assessment & Plan Assessment & Plan (1) Osteoarthritis of right hip: Code(s): M16.11 - Unilateral primary osteoarthritis, right hip Category: Medical Qualifiers: Osteoarthritis type: primary Qualified Code(s): M16.11 - Unilateral primary osteoarthritis, right hip Plan: Has exhausted all conservative measures consisting of lifestyle modifications, physical therapy, analgesics, corticosteroid injections and use of assisted devices and continues to have significant limitations in daily activities along with decreased quality of life. Given the patient's desire to improve their quality of life, surgical intervention consisting of joint replacement surgery is recommended at this time.? We discussed the procedure in detail today; which includes pre op preparation with labs and reviewing patients medication regimen prior to surgery. He will obatin CBC, CMP, HgB A1C and T&S prior to surgery. I discussed at length the post op course which includes physical therapy services in the hospital along with the discharge routine and the patients plan upon discharge. He would like to be DC home with VNA. I explained to the patient, once they are DC home, they will receive VNA services which will include PT 2-3x per week. We also discussed their choice for outpatient PT once they are discharged from home PT. He is already attending [facility] and would like to continue post op. Post op DVT ppx was also discussed and the considering the patient does not have a h/o DVT/PE, Cancer, or a current smoker he will be placed on ASA 325mg tabs po bid. I reviewed with the patient their post op pain medication regimen along with the detailed wean program. The patient did express concerns with using opiate medication and opted not to sign the agreement. Instead, an agreement was signed with his choice to not have narcotic medications and his understanding and acceptance of what this means. This has been signed by the patient, myself and a witness and scanned into his chart. Lastly, I discussed with the patient the risks to the procedure. Risks including but not limited to infection, injury to surrounding nerves, tissue , bone, small and large vessels, stiffness, aseptic loosening, fracture, dislocation, amputation, DVT/PE along with intraoperative complications including but not limited to . The patient does express understanding, all questions were answered and the patient would like to proceed? with Right total hip arthroplasty with Dr. Tomlinson. Consents were signed and dated while in the office today.? Post-Operative Recovery Notes: DVT ppx : ASA 325mg tabs po BID Hospital DC plan: Home with VNA Physical Therapy: [facility] in [place], he has the order and will call to make an appt Walker sent to [id number] - Contact information given to patient with instructions on how to obtain the items. Orders: Orders XR hip RT min 2V Today M25.551 - Pain in right hip Basic Metabolic Panel Today Z01.818 - Encounter for other preprocedural examination Complete Blood Count Auto Diff Today Z01.818 - Encounter for other preprocedural examination Type and Screen Today Z01.818 - Encounter for other preprocedural examination PT Evaluation and Treatment Today Z96.641 - Presence of right artificial hip joint Hemoglobin A1c Today E11.9 - Type 2 diabetes mellitus without complications Coding Level of Care Code Est Pt Level 4 (38748) Complex EM visit Add On G2211 Diagnoses Primary osteoarthritis of right hip M16.11 Osteoarthritis type: primary
--- OUTSIDE RECORDS SUMMARY | 2025-06-18 11:27 | XMS_ITS | Clinical Summary ---
Author Organization [employer] Address [address] [place] [address] [place] [address] Care Team Providers Care Peer Support Specialist Name Role Phone Unavailable Primary Care Provider [...] Description 03/26/2025 2:15 PM EDT Office Visit [facility] DENTAL [address] [place] [address] Stephanie Martinez DDS Dental caries (Primary Dx) 03/19/2025 12:00 PM EDT Office Visit [facility] DENTAL [address] [place] [address] Stephanie Martinez DDS Dental caries (Primary Dx) [...] Description 07/09/2025 11:00 AM EDT Office Visit [facility] DENTAL [address] [place] [address] Stephanie Martinez DDS [address] [place], [place] [phone] 07/16/2025 11:00 AM EDT Office Visit [facility] DENTAL [address] [place] [address] Stephanie Martinez DDS [address] [place] [address] 07/21/2025 2:00 PM EDT Office Visit [facility] DENTAL [address] [place] [address] Priti Young 07/23/2025 11:00 AM EDT Office Visit [facility] DENTAL [address] [place] [address] Stephanie Martinez DDS [address] [place] [address] Health Maintenance Due Date Last Done Comments [...]
--- OUTSIDE RECORDS SUMMARY | 2025-06-18 11:27 | XMS_ITS | Encounter Summary ---
Author Organization [facility] Address [address] [facility] [address] [place] [address] Phone Care Team Providers Care Early Childhood Special Educator Name Role Phone Radha Nance MD Primary Care Provider Skyler Montemayor NP Primary Care Provide r Encounter Details Date Type Department Care Team (Late st Contact Info) Description 08/25/2017 Ancillary Orders Virtual Department [address] [place] [address] Radha Nance MD [address] [facility] [address] [place] [address] [email or web address] H/O tobacco use, presenting hazards to health [...] health documented in this encounter Care Teams Early Childhood Special Educator Relationship Specialty Start Date End Date Radha Nance MD [address] [place] [address] PCP - General Family Medicine 08/28/17 10/08/19 Skyler Montemayor NP [address] [place] [address] [address] [place] [address] PCP - General 10/09/19 documented as of this encounter Additional Source Comments The information contained in this document represents components of the legal health record. It is not the complete legal health record.[facility]
--- OUTSIDE RECORDS SUMMARY | 2025-06-18 11:27 | XMS_ITS | Patient Health Record ---
Author Organization [facility] Address [address] [facility] [place] [address] Care Team Providers Care Bowling Ball Mold Assembler Name Role Phone Almas Carpenter Primary Care Provider Hardeep Beltran Unavailable [phone] Allergies Allergen (clinical drug ingredient) Drug/Non Drug [...] primary osteoarthritis of the ankle and/or foot (380012960) Primary osteoarthritis, left ankle and foot (M19.072) Active confirmed Problem Acquired hammer toe of right foot (1502684346433344) Other hammer toe(s) (acquired), right foot (M20.41) Active confirmed Problem Acquired hammer toe of left foot (0451245734420392) Other hammer toe(s) (acquired), left foot (M20.42) Active confirmed Problem Peripheral venous insufficiency (57373785) Venous insufficiency of both lower extremities (I87.2) [...] Coverage Start Date Coverage End Date [facility] Plan [id number] [place]IER Panchal [phone] [id number] Cornel Avina Self - patient is the insured Medical (General) History Medical History History ICD Code Anxiety Back,Hip,and Knee pain Measles Chicken pox Surgical History Surgery Date(Month/Year) hernia 01/2010/01/2018
== END 2025-06-18 11:10 | disposition home or self-care (01) ==
LOC: HO.HOS 10:03
PROVIDERS: PCP Internal Medicine; Visit Provider Physician Assistant
DX: M16.11 Unilateral primary osteoarthritis, right hip (principal)
CPT/HCPCS: 99024

== ENCOUNTER 2025-06-18 10:57 | Outpatient (REF) | payer MEDICARE, SELFPAY ==
--- NOTE | ~2025-06-18 | XR_ITS ---
EXAMINATION: XR HIP, RIGHT CLINICAL INFORMATION: M25.551 - Pain in right hip COMPARISON: None available. TECHNIQUE: AP upright, AP supine, and frog-leg lateral views of the right hip. FINDINGS: There is severe narrowing of the superior lateral right hip joint with subchondral sclerosis and degenerative cystic change and marginal osteophytes. There is bony prominence of the lateral femoral head neck junction. Left hip joint space is preserved. There are osteophytes around the fovea, medial femoral head, and acetabular roof. SI joints are symmetrical and unremarkable. XR/XR hip RT min 2V IMPRESSION: Severe left hip joint osteoarthritis. Early changes of osteoarthritis in the left hip joint without joint space narrowing. Electronically signed by: Nikhil Caldwell MD 06/18/2025 10:22 AM EDT
--- OUTSIDE RECORDS SUMMARY | 2025-06-19 11:02 | XMS_ITS | Patient Health Record ---
Author Organization [facility] Address [address] [facility] [place] [place] [address] Care Team Providers Care Client Manager Large Law Name Role Phone Almas Carpenter Primary Care Provider Hardeep Beltran Unavailable [phone] Allergies Allergen (clinical drug ingredient) Drug/Non Drug [...] primary osteoarthritis of the ankle and/or foot (964853948) Primary osteoarthritis, left ankle and foot (M19.072) Active confirmed Problem Acquired hammer toe of right foot (0005590578875674) Other hammer toe(s) (acquired), right foot (M20.41) Active confirmed Problem Acquired hammer toe of left foot (1347641654637498) Other hammer toe(s) (acquired), left foot (M20.42) Active confirmed Problem Peripheral venous insufficiency (95355718) Venous insufficiency of both lower extremities (I87.2) Active confirmed Plan Of Treatment Pending Test Test Name Order Date X ray : Foot, left 2V 05/07/2019 X ray : Foot, right 2V 05/07/2019 X ray : Foot, left 3V 11/27/2022 Insurance Providers Payer Name Payer Address Payer Phone Subscriber Number Group Number Insured Name Patient Relationship to Insured Coverage Start Date Coverage End Date [facility] Plan [address] [place]IER Panchal [phone] [id number] Cornel Avina Self - patient is the insured Medical (General) History Medical History History ICD Code Anxiety Back,Hip,and Knee pain Measles Chicken pox Surgical History Surgery Date(Month/Year) hernia 01/2010/01/2018
--- OUTSIDE RECORDS SUMMARY | 2025-06-19 11:02 | XMS_ITS | Clinical Summary ---
Author Organization [employer] Address [address] [place] [address] [place] [address] Care Team Providers Care Systems Programmer Analyst Name Role Phone Unavailable Primary Care Provider [...] Description 03/26/2025 2:15 PM EDT Office Visit [facility] DENTAL [address] [place] [address] Stephanie Martinez DDS Dental caries (Primary Dx) 03/19/2025 12:00 PM EDT Office Visit [facility] DENTAL [address] [place] [address] Stephanie Martinez DDS Dental caries (Primary Dx) [...] Description 07/09/2025 11:00 AM EDT Office Visit [facility] DENTAL [address] [place] [address] Stephanie Martinez DDS [address] [place], [place] [phone] 07/16/2025 11:00 AM EDT Office Visit [facility] DENTAL [address] [place] [address] Stephanie Martinez DDS [address] [place] [address] 07/21/2025 2:00 PM EDT Office Visit [facility] DENTAL [address] [place] [address] Priti Young 07/23/2025 11:00 AM EDT Office Visit [facility] DENTAL [address] [place] [address] Stephanie Martinez DDS [address] [place] [address] Health Maintenance Due Date Last Done Comments [...] 26 PULP CAP - INDIRECT (EXCLUDING FINAL HOLINESS) Routine 03/26/2025 2:15 PM EDT 27 MF [...]
--- OUTSIDE RECORDS SUMMARY | 2025-06-19 11:02 | XMS_ITS | Encounter Summary ---
Author Organization [facility] Address [address] [facility] [place] [address] Phone Care Team Providers Care Front Desk Coordinator Name Role Phone Radha Nance MD Primary Care Provider Skyler Montemayor NP Primary Care Provide r Encounter Details Date Type Department Care Team (Late st Contact Info) Description 08/25/2017 Ancillary Orders Virtual Department [address] [place] [address] Radha Nance MD [address] [facility] [address] [place] [address] [email or web address] H/O tobacco use, presenting hazards to health [...] health documented in this encounter Care Teams Front Desk Coordinator Relationship Specialty Start Date End Date Radha Nance MD [address] [place] [address] PCP - General Family Medicine 08/28/17 10/08/19 Skyler Montemayor NP [address] [place] [address] [address] [place] [address] PCP - General 10/09/19 documented as of this encounter Additional Source Comments The information contained in this document represents components of the legal health record. It is not the complete legal health record.[facility]
== END 2025-06-18 10:58 | disposition home or self-care (01) ==
LOC: HO.HOSX 10:57
PROVIDERS: Visit Provider Physician Assistant
DX: Z01.818 Encounter for other preprocedural examination (principal); M16.11 Unilateral primary osteoarthritis, right hip; M25.551 Pain in right hip; E11.9 Type 2 diabetes mellitus without complications; Z96.641 Presence of right artificial hip joint; Z79.82 Long term (current) use of aspirin; Z79.899 Other long term (current) drug therapy
CPT/HCPCS: 73502

== ENCOUNTER 2025-06-23 07:09 | Day surgery (SDC) | payer MEDICARE, SELFPAY ==
--- OUTSIDE RECORDS SUMMARY | 2025-05-14 07:40 | XMS_ITS | Clinical Summary ---
Author Organization [employer] Address [address] [place] [address] [address] [place] [address] Care Team Providers Care Grain Weigher Name Role Phone Unavailable Primary Care Provider [...] Description 03/26/2025 2:15 PM EDT Office Visit [facility] DENT[facility] [address] [place] [address] Stephanie Martinez DDS Dental caries (Primary Dx) 03/19/2025 12:00 PM EDT Office Visit [facility] DENT[facility] [address] [place] [address] Stephanie Martinez DDS Dental caries (Primary Dx) 03/05/2025 11:00 AM EDT Office Visit [facility] DENT[facility] [address] [place] [address] Stephanie Martinez DDS Dental abscess (Primary Dx); [...] Description 07/09/2025 11:00 AM EDT Office Visit [facility] DENT[facility] [address] [place] [address] Stephanie Martinez DDS [address] [place] [address] 07/16/2025 11:00 AM EDT Office Visit [facility] DENT[facility] [address] [place] [address] Stephanie Martinez DDS [address] [place] [address] 07/21/2025 2:00 PM EDT Office Visit [facility] DENTAL [address] [place] [address] Priti Young 07/23/2025 11:00 AM EDT Office Visit [facility] DENTAL [address] [place] [address] Stephanie Martinez DDS [address] [place] [address] Health Maintenance Due Date Last Done Comments CT Colonography 1950 Colonoscopy 1950 Colorectal Cancer Screening 1950 Depression Screening 1950 FIT DNA/Cologuard 1950 FIT 1950 FOBT 1950 Lipid Panel 1950 SDOH Screening 1950 Sigmoidoscopy 1950 Alcohol/Substance Use Screening 1962 Hepatitis C Screening 1968 Pneumococcal Vaccine: 50+ Ye ars (1 of 1 - PCV) 2000 Zoster Vaccines (1 of 2) 2000 COVID-19 Vaccine ( - 2023-2 5 season) 2024 Influenza Vaccine (#1) 2025 Dental Oral Exam 07/19/2025 01/15/2025 Dental [...] 26 PULP CAP - INDIRECT (EXCLUDING FINAL SIKH) Routine 03/26/2025 2:15 PM EDT 27 MF [...]
--- OUTSIDE RECORDS SUMMARY | 2025-05-14 07:40 | XMS_ITS | Patient Health Record ---
Author [facility] Address [address] [place] [address] Care Team Providers Care Operating Room Surgical Technologist Name Role Phone Almas Carpenter Primary Care Provider Hardeep Beltran Unavailable [phone] Allergies Allergen (clinical drug ingredient) Drug/Non Drug [...] primary osteoarthritis of the ankle and/or foot (307455506) Primary osteoarthritis, left ankle and foot (M19.072) Active confirmed Problem Acquired hammer toe of right foot (0587105008688890) Other hammer toe(s) (acquired), right foot (M20.41) Active confirmed Problem Acquired hammer toe of left foot (8990578202972379) Other hammer toe(s) (acquired), left foot (M20.42) Active confirmed Problem Venous insufficiency of both lower extremities (I87.2) Active confirmed Plan Of Treatment Pending Test Test Name Order Date X ray : Foot, left 2V 05/07/2019 X ray : Foot, right 2V 05/07/2019 X ray : Foot, left 3V 11/27/2022 Insurance Providers Payer Name Payer Address Payer Phone Subscriber Number Group Number Insured Name Patient Relationship to Insured Coverage Start Date Coverage End Date [facility] [address] DID[place] Panchal [phone] [id number] Cornel Avina Self - patient is the insured Medical (General) History Medical History History ICD Code Anxiety Back,Hip,and Knee pain Measles Chicken pox Surgical History Surgery Date(Month/Year) hernia 01/2010/01/2018
--- NOTE | 2025-05-29 | ECG_ITS ---
Test Reason : PRE OP Blood Pressure : */* mmHG Vent. Rate : 55 BPM Atrial Rate : 55 BPM P-R Int : 138 ms QRS Dur : 84 ms QT Int : 402 ms P-R-T Axes : 56 -78 76 degrees QTcB Int : 384 ms Sinus bradycardia Left axis deviation Abnormal ECG No previous ECGs available Referred By: Carolina Ziegler Electronically Signed By: FRANCES BROWN MD
--- NOTE | 2025-05-29 10:34 | HO.ANESPROP2 ---
Documented by User: Carolina Ziegler NP 06/10/25 09:42 HPI - Anesthesia Eval Consult details Narrative: 74 yr old male for right total hip replacement, seen in PAT No recent illness No CP/SOB with very minimal activity 2/2 hip pain, does ADLs ARMIDA: on CPAP Medically optimized by PCP via addendum 06/09/25, EKG/labs ordered by PCP, last labs 02/2025 normal BMP, A1C 6.2%; normal CBC. *he prefers to avoid narcotics so might decline preop oxycontin PMFSH Active Problems Active Problems: All Active Problems Preoperative clearance (Acute) Osteoarthritis of right hip (Acute) Lumbar spondylosis (Acute) Chronic low back pain (Acute) Bilateral primary osteoarthritis of knee (Acute) Arthritis, hip (Acute) Eczema (Acute) Right hip pain (Acute) Tinea corporis (Acute) Foot callus (Acute) Dermatitis (Acute) Annual physical exam (Acute) Trochanteric bursitis of right hip (Acute) Scoliosis (Acute) Impacted cerumen of both ears (Acute) Ventral hernia (Acute) Colon cancer screening (Acute) Annual physical exam (Acute) Obstructive sleep apnea (Acute) Venous stasis dermatitis (Acute) Obesity (BMI 30-39.9) (Acute) Past Medical History Medical History Arthritis Depression ARMIDA on CPAP Anesthesia complication Dry skin dermatitis Venous stasis dermatitis Umbilical hernia Obesity (BMI 30-39.9) Renal calculi Family History Family history of problems with anesthesia: No Surgical History Surgical History H/O inguinal hernia repair History of Problems with Anesthesia: No (sensitive to medications per pt) Social History Social History Housing: House Are you a primary respite care provider to a significant other at home: No Do you presently have visiting nurse or other home services: No Alcohol intake: never Patient Tobacco Use Status: Former Tobacco user Tobacco use type: Cigarette Years Smoked: 8 quit 1974 e-Cigarette/Vaping Use: Never Used Second Hand Smoke Exposure: Yes Use of substances other than those prescribed or required for medical reasons: No Have you been hit, kicked, punched, or otherwise hurt by someone within the past year? If so, by whom?: No Spiritual Healthcare Practices: no Cheondoism Healthcare Practices: no Cultural Healthcare Practices: no Are you DNR?: No Advance Directives: No ( is primary contact) Advance Directives on File: No Poor oral hygiene: No (many extracted teeth) service: No Current occupational status: employed Cognitive needs: No Hearing needs: No Vision needs: Yes (Glasses) Meds Allergies Allergy/AdvReac Type Severity Reaction Status Date / Time metronidazole (Flagyl) Allergy Mild light Verified 06/18/25 10:18 headed Home Medications ?Medication ?Instructions ?Recorded ?Confirmed ?Last Taken ?Type CPAP NASAL: 6-16 cm Humidified Air #1 ea 12/20/20 06/23/25 Unknown History ascorbic acid (vitamin C) 500 mg 500 mg PO BID 05/29/25 06/23/25 06/21/25 History capsule aspirin 81 mg tablet 81 mg PO QAM 05/29/25 06/23/25 06/08/25 History calcium-magnesium 300 mg-300 mg 1 tab PO BEDTIME 05/29/25 06/23/25 06/22/25 History tablet ibuprofen 200 mg tablet 600 mg PO Q6H PRN Pain 05/29/25 06/23/25 06/15/25 History psyllium husk 0.52 gram capsule 0.52 g PO BEDTIME 05/29/25 06/23/25 06/22/25 History tryptophan 500 mg capsule 500 mg PO BEDTIME 05/29/25 06/23/25 06/22/25 History vitamin B complex 1 cap PO DAILY 05/29/25 06/23/25 06/22/25 History multivitamin no.46-iron 29 1 cap PO .QD 06/08/25 06/23/25 06/22/25 History mg-folate comb.no.6 1 mg-dha 300 mg capsule pyridoxine (vitamin B6) 200 mg 200 mg PO DAILY 06/08/25 06/23/25 06/22/25 History tablet,extended release Exam Narrative Narrative: EKG 05/29/25 Vent. Rate : 55 BPM Atrial Rate : 55 BPM P-R Int : 138 ms QRS Dur : 84 ms QT Int : 402 ms P-R-T Axes : 56 -78 76 degrees QTcB Int : 384 ms Sinus bradycardia Left axis deviation Abnormal ECG No previous ECGs available Airway Mallampati Class: II TM Dist: >3cm Neck ROM: Full Loose/Missing/Broken Teeth: Yes (several M) Heart: RRR Lungs: CTAB Other: chronic mild b/l non pitting LE edema Assessment and Plan Final Anesthetic Review Family History of Problems with Anesthesia: No History of Problems with Anesthesia: No (sensitive to medications per pt) Documented by User: Margaret Gibson MD 06/23/25 09:00 [facility] Past Medical History Medical History Arthritis Depression ARMIDA on CPAP Anesthesia complication Dry skin dermatitis Venous stasis dermatitis Umbilical hernia Obesity (BMI 30-39.9) Renal calculi Surgical History Surgical History H/O inguinal hernia repair Social History Social History Housing: House Are you a primary respite care provider to a significant other at home: No Do you presently have visiting nurse or other home services: No Alcohol intake: never Patient Tobacco Use Status: Former Tobacco user Tobacco use type: Cigarette Years Smoked: 8 quit 1975 e-Cigarette/Vaping Use: Never Used Second Hand Smoke Exposure: Yes Use of substances other than those prescribed or required for medical reasons: No Have you been hit, kicked, punched, or otherwise hurt by someone within the past year? If so, by whom?: No Spiritual Healthcare Practices: no Cheondoism Healthcare Practices: no Cultural Healthcare Practices: no Are you DNR?: No Advance Directives: No ( is primary contact) Advance Directives on File: No Poor oral hygiene: No (many extracted teeth) service: No Current occupational status: employed Cognitive needs: No Hearing needs: No Vision needs: Yes (Glasses) Meds Allergies Allergy/AdvReac Type Severity Reaction Status Date / Time metronidazole (Flagyl) Allergy Mild light Verified 06/18/25 10:18 headed Home Medications ?Medication ?Instructions ?Recorded ?Confirmed ?Last Taken ?Type CPAP NASAL: 6-16 cm Humidified Air #1 ea 12/20/20 06/23/25 Unknown History ascorbic acid (vitamin C) 500 mg 500 mg PO BID 05/29/25 06/23/25 06/21/25 History capsule aspirin 81 mg tablet 81 mg PO QAM 05/29/25 06/23/25 06/08/25 History calcium-magnesium 300 mg-300 mg 1 tab PO BEDTIME 05/29/25 06/23/25 06/22/25 History tablet ibuprofen 200 mg tablet 600 mg PO Q6H PRN Pain 05/29/25 06/23/25 06/15/25 History psyllium husk 0.52 gram capsule 0.52 g PO BEDTIME 05/29/25 06/23/25 06/22/25 History tryptophan 500 mg capsule 500 mg PO BEDTIME 05/29/25 06/23/25 06/22/25 History vitamin B complex 1 cap PO DAILY 05/29/25 06/23/25 06/22/25 History multivitamin no.46-iron 29 1 cap PO .QD 06/08/25 06/23/25 06/22/25 History mg-folate comb.no.6 1 mg-dha 300 mg capsule pyridoxine (vitamin B6) 200 mg 200 mg PO DAILY 06/08/25 06/23/25 06/22/25 History tablet,extended release Assessment and Plan Assessment Anesthesia Assessment: Anesthesia Plan Discussed and Chart Reviewed Final Anesthetic Review NPO: Yes ASA Class: III Final Preanesthetic Review: No Changes in Pt Med Stat, Meds/Allgs Chart Reviewed, Consent Obtained/Reviewed and Anes Risks/Benef Reviewed Patient Risk: Intermediate Procedure Risk: Intermediate Anesthetic Plan Anesthetic Plan: GA, Regional Block, Agree w/ Assess. and Plan and Other (discussed with pt and surgeon pts wish not to be on post op narcotics, surgeon will use exparel, surgeon does not want anesthesia to do prince /LFCN blocks) Disposition: Standard PACU
[2025-05-29 10:35] VITALS: BP 127/59; PULSE 65; RESP 20; O2SAT 96; BMI 35.3
[2025-05-29 12:48] LABS: MRSA Nasal PCR NEGATIVE (Negative); SA Nasal PCR NEGATIVE (Negative)
[2025-06-18 11:43] LABS: MANUAL DIFF FLAG NO
[2025-06-18 11:56] LABS: Hematocrit 42.2 % (42.0-52.0); Hemoglobin 14.5 g/dl (14.0-18.0); Imm Gran Abs Auto 0.01 X10*3/uL (0.00-0.03); Imm Gran Pct Auto 0.1 % (0.0-0.4); Lymphocytes Absolute Auto 2.1 X10*3/uL (1.2-4.9); Mean Corpuscular HGB Conc 34.4 g/dl (31.0-36.0); Mean Corpuscular Hemoglobin 30.0 pg (27.0-33.0); Mean Corpuscular Volume 87.2 fL (80.0-98.0); NRBC Abs Auto 0.000 X10*3/uL (0.0-0.012); NRBC Pct Auto 0.0 /100WBC (0.0-0.2); Platelet Count 176 X10*3/uL (160-400); Red Blood Count 4.84 X10*6/uL (4.60-5.80); White Blood Count 7.2 X10*3/uL (4.8-10.8)
[2025-06-18 12:22] LABS: Anion Gap 9 (12-20); Blood Urea Nitrogen 15 mg/dL (9-16); Calcium 9.0 mg/dL (8.4-10.2); Carbon Dioxide 29 mmol/L (22-29); Chloride 107 mmol/L (96-108); Creatinine Clr Calc Pharmacy 95.9; Estimated Glomerular Filt Rate > 60; Potassium 4.2 mmol/L (3.3-5.1); Sodium 141 mmol/L (135-145)
[2025-06-18 13:05] LABS: Hemoglobin A1C 164.0411 umol/L; Total Hemoglobin (HGBA1C) 3726.8889 umol/L
[2025-06-23] VITALS (9 sets, daily range): BP systolic 81–150; BP diastolic 46–71; PULSE 16–80; RESP 12–20; TEMP 36.4–36.9; O2SAT 93–98; BMI 35.7; BMI 35.4
--- NOTE | ~2025-06-23 | XR_ITS ---
EXAMINATION: XR PELVIS 1-2 VIEWS HISTORY: RT SHARIFA COMPARISON: Comparison is made with the prior examination dated 06/18/2025. FINDINGS: A single AP portable view of the pelvis performed at 12:27 PM is submitted. The patient is status post right total hip arthroplasty. The orthopedic elements are in anatomic alignment on this single AP view. Postoperative changes are noted in the soft tissues. XR/XR pelvis 1-2V IMPRESSION: Status post right total hip arthroplasty. Electronically signed by: Gurpreet Archibald MD 06/23/2025 12:58 PM EDT
--- NOTE | 2025-06-23 07:18 | MHC.SHP ---
Pre-Procedural Eval Section A - 24 Hr Update-Section A only Date of Service: 06/23/25 The patient is an INPATIENT: No Changes since office visit: No Cold of Flu in the past 2 weeks, No New Medical Problems, No Changes in Medication and No Patient answered all questions The patient has been examined within 24 hours of the surgical procedure. The History & Physical has been completed within 30 days and I have reviewed it.: Yes Section B - Complete if H&P > 30 days Chief Complaint: Unilateral primary osteoarthritis, right hip Allergies: Allergies Allergy/AdvReac Type Severity Reaction Status Date / Time metronidazole (Flagyl) Allergy Mild light Verified 06/18/25 10:18 headed Plan I have reviewed the history and physical and performed a pertinent physical examination on my patient. No changes have occurred unless specified. Time Spent With Patient Time: Total time managing care of this patient today ____ minutes.
[2025-06-23] MEDS: Lactated Ringers 1,000 ML 100 ML IVCONT ×3 (08:14→22:52)
--- NOTE | 2025-06-23 12:18 | W.PM.OPN ---
Operative Note Operative Note Date of Service: 06/23/25 Narrative: Date of Service: 06/23/25 Pre-op diagnosis: Right hip OA Post-op diagnosis: same Procedure: Right SHARIFA Implants: Stryler Trident 2 54/ lipped liner [place] Accolade2#7 132/ -5 36 ceramic femoral head Surgeon: Owen Tomlinson MD Anesthesia: GETA and local Was an Fire Alarm Inspector used for this Procedure?: Yes Fire Alarm Inspector: Laura Jacinto Estimated blood loss (mL): 150 IV fluids (mL): 1,000 Pathology: other Condition: stable Disposition: PACU Procedure in detail: Patient was brought into the operating room and placed in the left lateral decubitus position. All bony prominences were well padded and the limb was prepped and draped in standard sterile fashion. A time-out was called to identify proper site procedure proper surgeon IV antibiotics and 1 g of tranexamic acid were administered. I began by making a curvilinear incision over the posterolateral aspect of the greater trochanter. Dissection was taken down to the tensor fascia which was incised in line with the incision and a Charnley retractor was placed. Cautery was used to maintain hemostasis. The hip was internally rotated and the external rotators were identified. The posterior soft tissues were protected with a blunt retractor at all times. The vessels were cauterized and a full-thickness capsular/external rotator layer was developed starting just distal to the piriformis. This layer was tagged and a dull Hohmann retractor was placed underneath the neck in the hip was dislocated. A neck cut was made 1 cm proximal to the lesser trochanter and the head and neck were removed and measured 49-50mm on the back table. The head was deformed and eburnated. I placed anterior and posterior acetabular retractores directly on bone in order to visualize the acetabulum. I then removed the labrum and cauterized the fovea. I started with a 44 reamer and medialized to the inner table. I sequentially reamed up to a size 54 and impacted a 54mm cup at 45 degrees of inclination and 25 degrees of version. I then placed a 20 deg posterior lipped liner and turned my attention to the femur. I identified the posterolateral neck and used this as a starting point for my jeannetteie cutter. The medius tendon was protected with a Hibs retractor. A Charnley awl was inserted in the canal and a curved curette used to remove the lateral bone. I irrigated copiously. I then sequentially broached in the patient's natural version to a size 7 and placed my trial implants. I used a #7/132/+-5 based on my pre-operative template. I removed all instrumentation and copiously irrigated. I placed my final femoral implant and again took the hip through range of motion and was satisfied with the stability and length. The final - ceramic implant was impacted in place and the hip reduced. I then irrigated copiously and placed 1 g of local tranexamic acid. I performed a capsular closure with 2.0 fiberwire, Cuba's fascia with 0 Vicryl, subcuticular with 2-0 Vicryl and the skin with phill. Patient was placed into a sterile dressing. Zynrelef was injected prior to ITB closure and prior to skin closure. Patient was extubated brought to the recovery room in stable condition. There were no known complications.
--- NOTE | 2025-06-23 14:10 | P.DS_ITS ---
DS: Providers Provider Date of Service: 06/24/25 <Amaris Roberts PA-C - Last Filed: 06/24/25 07:49> Date of discharge: 06/24/25 <Amaris Roberts PA-C - Last Filed: 06/24/25 07:49> Primary care physician: Almas Carpenter MD <Laura Jacinto PA-C - Last Filed: 06/24/25 09:35> Consults: 06/23/25 13:00 Consult to Case Management Routine Comment: RT SHARIFA home wtih vna Consult to Hospitalist Routine Comment: Consulting Provider: [facility] Hospitalists Reason For Exam: medical managmeent <JANES Pack Last Filed: 06/24/25 09:35> DS: Diagnosis Discharge Diagnosis (1) History of total right hip replacement: Status: Acute <JANES Pack Last Filed: 06/24/25 09:35> DS: Summary Hospital Course Hospital Course: The patient underwent a successful right total hip arthroplasty, they were transferred to PACU and then to the floor to recover. During their stay, their vitals were stable, afebrile at 98.8. Labs were unremarkable, H/H 11.9/34.8. POD 1 they were started on Aspirin 325mg po bid for DVT ppx, they also received Physical Therapy services. Prior to discharge, their dressing was clean dry and intact and the plan was to be discharged home with VNA services. <Laura Jacinto PA-C - Last Filed: 06/24/25 09:35> Time Attestation Discharge Coordination Time (in mins): 30 <JANES Awad Last Filed: 06/24/25 07:49> Quality: Safe Use of Opioids Does Pt have an Active Cancer Diagnosis on the Problem List?: No <Amaris Roberts PA-C - Last Filed: 06/24/25 07:49> Quality: Stroke Does the patient have a stroke diagnosis?: No <Amaris Roberts PA-C - Last Filed: 06/24/25 07:49> Physical Exam Vital Signs: Vital Signs: Last Vital Signs Temp 97.6 F 06/23/25 13:14 Pulse 16 L 06/23/25 13:14 Resp 18 06/23/25 13:14 BP 150/71 H 06/23/25 13:14 Pulse Ox 94 06/23/25 13:14 O2 Del Method Room Air 06/23/25 13:14 O2 Flow Rate 6 06/23/25 12:26 BMI result Body Mass Index 35.4 <Laura Jacinto PA-C - Last Filed: 06/24/25 09:35> Const: General: cooperative, healthy appearing and no acute distress <Amaris Roberts PA-C - Last Filed: 06/24/25 07:49> Resp: Effort & Inspection: normal respiratory effort and able to speak in complete sentences <Amaris Roberts PA-C - Last Filed: 06/24/25 07:49> Cardio: Rate: regular rate <Amaris Roberts PA-C - Last Filed: 06/24/25 07:49> Peripheral pulses: Peripheral pulses 2+ throughout <Amaris Roberts PA-C - Last Filed: 06/24/25 07:49> GI: Palpation (GI): Soft to palpation <Amaris Roberts PA-C - Last Filed: 06/24/25 07:49> Skin: Lesions: no lesions <TAPAN AwadC - Last Filed: 06/24/25 07:49> Rashes: no rashes <Amaris Roberts PA-C - Last Filed: 06/24/25 07:49> Extrem: Other: right hip dressing is c/d/i. Able to dorsi/plantar flex. Calf is supple and nontender. Sensation intact. Pedal pulse intact. <Amaris Roberts PA-C - Last Filed: 06/24/25 07:49> DS: Data Data Completed and Pending Pending studies at discharge: Pending at discharge 06/23/25 11:34 Surgical [PTH] Routine <Laura Jacinto PA-C - Last Filed: 06/24/25 09:35> Discharge Plan Discharge Patient Disposition: Home Health Service <Laura Jacinto PA-C - Last Filed: 06/24/25 09:35> Referrals: Doyle BROUSSARD [Outside] - 1 Day Referral Note: Doyle BROUSSARD will call you to schedule home PT appointments Laura Jacinto PA-C [Physician Rope Making Machine Operator, Orthopedics] - 1 Week Referral Note: 07/09/25 14:00 [facility] Orthopedic Surgeons Laura Jacinto PA-C <Laura Jacinto PA-C - Last Filed: 06/24/25 09:35> Discharge Medications: New aspirin 325 mg Tablet 325 mg PO BID 42 Days Qty: 84 0RF docusate sodium 100 mg Capsule 100 mg PO BID 30 Days Qty: 60 0RF Continued (DME) Folding Front Wheeled walker See Rx Instructions .ROUTE .MEDSUPPLY Qty: 1 0RF Rx Instructions: Duration: 99 days tryptophan 500 mg Capsule 500 mg PO BEDTIME Rx Instructions: administer approximately 20 minutes before bedtime calcium-magnesium 300-300 mg Tablet 1 tab PO BEDTIME Rx Instructions: administer with a meal vitamin B complex Capsule 1 cap PO DAILY psyllium husk 0.52 gram Capsule 0.52 g PO BEDTIME ascorbic acid (vitamin C) 500 mg capsule 500 mg PO BID (DME) compress.stocking,knee,reg,lrg Misc See Rx Instructions .ROUTE .MEDSUPPLY Qty: 2 0RF Rx Instructions: As directed 20-30 mm HG (DME) CPAP NASAL: 6-16 cm Humidified Air 0 .Route .MEDSUPPLY Qty: 1 triamcinolone acetonide 0.025 % lotion 1 appl topical BID 14 Days Qty: 60 0RF pyridoxine (vitamin B6) 200 mg tablet extended release 200 mg PO DAILY multivit [id number] 6-dha 29 mg iron-1 mg -300 mg capsule 1 cap PO .QD Discontinued ibuprofen 200 mg Tablet 600 mg PO Q6H PRN (Reason: Pain) aspirin 81 mg Tablet 81 mg PO QAM <Laura Jacinto PA-C - Last Filed: 06/24/25 09:35> Discharge Orders: Discharge Order (Routine); Ordered 06/24/25 Ordered By: Amaris Roberts <Laura Jacinto PA-C - Last Filed: 06/24/25 09:35> Diet: Regular diet <Laura Jacinto PA-C - Last Filed: 06/24/25 09:35> Regular diet <Amaris Roberts PA-C - Last Filed: 06/24/25 07:49> Activity on Discharge: Use cane or walker <Laura Jacinto PA-C - Last Filed: 06/24/25 09:35> Use cane or walker <Amaris Roberts PA-C - Last Filed: 06/24/25 07:49> Activity Restrictions/Additional Instructions: Physical Therapy for total hip arthroplasty: posterior precautions, gait training, ROM, strength Limit stair climbing No showering, no tub bath-keep dressing clean, dry and intact No driving x 6 weeks Continue Aspirin tabs once a day x 6 weeks Follow up with [facility] Orthopedics in 2 weeks -Bandage/Incision Site Care: -Ice 20mins at a time -Make sure you use a towel or cloth on your skin as a barrier -DO NOT remove the bandage -Keep Bandage clean, dry and intact -Do not get the bandage wet: -No tub bath, pools or hot tubs -If there are any concerns regarding the bandage please call orthopedics: [phone] -Hip Precautions: -Do not bend hip past 90 degrees -Do not cross at your knees or ankles -Do not turn your operative leg inward (avoid twisting the foot in) -Avoid low chairs and deep couches -Use supportive shoes with nonslip soles -Physical Therapy: -Patient is WBAT with the use of a walker -Gait training -Limit stair climbing -Hip range of motion -Strengthening: Quadriceps and hip muscles -Walking: Gait training and gradually increasing distance with walker -Ankle pumps and incentive spirometry to limit the risk of blood clot -Diet: -Resume regular diet as tolerated. -Drink plenty of fluids and eat a high-fiber foods to avoid constipation -This is a common side effect of pain medication) -Take stool softeners as prescribed -Blood Clot Prevention: -Take the prescribed blood thinner as directed for 6 weeks -Perform ankle pumps and walk frequently with the walker and assistance if needed -Report calf pain, swelling, or shortness of breath immediately <Laura Jacinto PA-C - Last Filed: 06/24/25 09:35> Print Language: Cypriot <Laura Jacinto PA-C - Last Filed: 06/24/25 09:35>
--- NOTE | 2025-06-23 14:11 | W.MHC.F2F ---
Service Date Service Date: 06/23/25 Encounter Date of encounter: 06/24/25 Reasons for Services Signs and symptoms assessed: Weakness, poor balance, poor gait mechanics Reason for physical therapy: home safety and mobility, therapeutic exercises, restore joint function, gait/transfer training, ADL training and energy conservation Reason for occupational therapy: home safety and mobility, therapeutic exercises, restore joint function, gait/transfer training, ADL training and energy conservation Overseeing Care: Owen Tomlinson Homebound: Leaving the home is medically contraindicated at this time without the asist of a device and/or another person due th the listed conditions above and below. Reason homebound: unsteady gait / fall risk, pain with ambulation, poor balance / fall risk and unable to drive Homebound supporting statement: Pt. is considered home bound due to recent surgery. Unable to drive, poor balance, poor gait mechanics. Certification: Based on the above findings, I certify that this patient is confined to the home and needs intermittent retirement care, physical therapy and/or speech therapy, or continues to need occupational therapy. The patient is under my care, and I have initiated the establishment of the plan of care. The patient will be followed by a physician who will periodically review the plan of care. Time Spent With Patient Time: Total time managing care of this patient today ____ minutes.
--- NOTE | 2025-06-23 17:11 | PC.NURSE ---
Bladder scan for pt at 1600 showed 700ml, pt able to void in urinal for 400 ml.
--- NOTE | 2025-06-23 20:31 | HO.PM.IMCN ---
History of Present Illness Data of Consult Service Date: 06/23/25 Requesting physician: Owen Tomlinson Primary Care Provider: Almas Carpenter MD [facility] Reason for consult: medical management Patient is a 74-year-old male with a past medical history significant for ARMIDA on CPAP, venous stasis dermatitis, arthritis, depression, class 2 obesity and umbilical hernia now s/p right SHARIFA today. The patient reports no acute concerns including chest pain, shortness of breath, nausea or vomiting. He has been able to urinate and denies any numbness or tingling in the right lower extremity. Medical history and medications were reviewed with the patient. Review of Systems Review of Systems: Yes all other systems are reviewed and are negative [facility] Medical History Arthritis Depression ARMIDA on CPAP Anesthesia complication Dry skin dermatitis Venous stasis dermatitis Umbilical hernia Obesity (BMI 30-39.9) Renal calculi Surgical History H/O inguinal hernia repair Social History Household Members: Spouse Housing: House Are you a primary personal care aide to a significant other at home: No Do you presently have visiting nurse or other home services: No Alcohol intake: never Patient Tobacco Use Status: Never used Tobacco Tobacco use type: Cigarette Years Smoked: 8 quit 1975 Smoked in Last 30 Days: No e-Cigarette/Vaping Use: Never Used Patient Interested in Nicotine Replacement: No Patient Given Instructions on How to Stop Smoking: No Second Hand Smoke Exposure: No Use of substances other than those prescribed or required for medical reasons: No Currently Displaying Signs/Symptoms of Drug Intoxication Withdrawal: No Have you been hit, kicked, punched, or otherwise hurt by someone within the past year? If so, by whom?: No Do you feel safe in your current relationship?: Yes Is there a partner from a previous relationship who is making you feel unsafe now?: No Are you made to feel afraid or neglected: No Spiritual Healthcare Practices: no Episcopalian Healthcare Practices: no Cultural Healthcare Practices: no Are you DNR?: No Advance Directives: No ( is primary contact) Advance Directives on File: No Do you have a plan to hurt others: No Plan Recently lost weight without trying: No Eating poorly because of decreased appetite: No Nutrition Risks: No Nutritional Risk Poor oral hygiene: No service: No Current occupational status: employed Cognitive needs: No Hearing needs: No Vision needs: Yes (Glasses) Narrative: Previous smoker, no alcohol or drug use Meds Allergies Allergy/AdvReac Type Severity Reaction Status Date / Time metronidazole (Flagyl) Allergy Mild light Verified 06/18/25 10:18 headed Active Medications: Current Medications Ascorbic Acid (Ascorbic Acid 500 Mg Tablet) 500 mg PO BID [facility] Aspirin (Aspirin 325 Mg Tablet) 325 mg PO BID [facility] Docusate Sodium (Docusate Sodium 100 Mg Capsule) 100 mg PO BID [facility] Lactated Ringer's (Lr) 1,000 mls @ 100 mls/hr IVCONT .Q10H [facility] Stop: 06/24/25 08:00 Last Admin: 06/23/25 13:14 Dose: 100 mls/hr Acetaminophen (Ofirmev) 1,000 mg in 100 mls @ 400 mls/hr IV Q6H [facility] Stop: 06/24/25 11:44 Last Infusion: 06/23/25 18:08 Dose: Infused Multivitamins/Vitamin C (Multivitamin Tablet) 1 tab PO .QD [facility] Ondansetron HCl (Ondansetron Hcl 4 Mg/2 Ml Vial) 4 mg IVPUSH Q8H PRN PRN Reason: Nausea and Vomiting Oxycodone HCl (Oxycodone Hcl Immed Release 5 Mg Tablet) 5 mg PO Q4H PRN PRN Reason: Pain, Moderate(Pain Scale 4-6) Sodium Chloride (0.9 % Sodium Chloride Flush 3 Ml Syringe) 3 ml IVFLUSH QSHIFT [facility] Last Admin: 06/23/25 14:23 Dose: Not Given Home Medications ?Medication ?Instructions ?Recorded ?Confirmed ?Last Taken ?Type CPAP NASAL: 6-16 cm Humidified Air #1 ea 12/20/20 06/23/25 Unknown History ascorbic acid (vitamin C) 500 mg 500 mg PO BID 05/29/25 06/23/25 06/21/25 History capsule aspirin 81 mg tablet 81 mg PO QAM 05/29/25 06/23/25 06/08/25 History calcium-magnesium 300 mg-300 mg 1 tab PO BEDTIME 05/29/25 06/23/25 06/22/25 History tablet ibuprofen 200 mg tablet 600 mg PO Q6H PRN Pain 05/29/25 06/23/25 06/15/25 History psyllium husk 0.52 gram capsule 0.52 g PO BEDTIME 05/29/25 06/23/25 06/22/25 History tryptophan 500 mg capsule 500 mg PO BEDTIME 05/29/25 06/23/25 06/22/25 History vitamin B complex 1 cap PO DAILY 05/29/25 06/23/25 06/22/25 History multivitamin no.46-iron 29 1 cap PO .QD 06/08/25 06/23/25 06/22/25 History mg-folate comb.no.6 1 mg-dha 300 mg capsule pyridoxine (vitamin B6) 200 mg 200 mg PO DAILY 06/08/25 06/23/25 06/22/25 History tablet,extended release Physical Exam Vital Signs and Narrative: Vital Signs: Last Vital Signs Temp 97.9 F 06/23/25 19:17 Pulse 74 06/23/25 19:17 Resp 18 06/23/25 19:17 BP 139/63 06/23/25 19:17 Pulse Ox 96 06/23/25 19:17 O2 Del Method Room Air 06/23/25 19:17 O2 Flow Rate 6 06/23/25 12:26 BMI result Body Mass Index 35.4 General: AOx3, no acute distress Resp: CTA bilaterally CVS: S1, S2, RRR GI: +BS, NT, no distention Skin: Warm, dry Neuro: Cranial nerves II-XII grossly intact bilaterally. Motor grossly intact bilaterally. Sensation intact right lower extremity Extremities: No pitting edema, pneumoboots present Psych: Appropriate affect Results Labs 06/18/25 11:41 06/18/25 11:41 Imaging Radiologist's Impressions: Impressions Pelvis X-Ray 06/23/25 11:26 IMPRESSION: Status post right total hip arthroplasty. Electronically signed by: Gurpreet Archibald MD 06/23/2025 12:58 PM EDT Assessment and Plan (1) S/P total right hip arthroplasty: Status: Acute Plan Patient is a 74-year-old male with a past medical history significant for ARMIDA on CPAP, venous stasis dermatitis, arthritis, depression, class 2 obesity and umbilical hernia now s/p right SHARIFA today. s/p R SHARIFA - POD 0 - pain controlled, pt ambulating without difficulty - plain per ortho ARMIDA - CPAP at bedtime, pt brought his own depression - no home meds class 2 obesity - BMI 35.4 - weight loss encouraged umbilical hernia - no acute abd pain - following with Dr Alfaro outpt Thank you for allowing me to participate in the pt's care. Signing off. Please contact the medical team if any questions or concerns.
[2025-06-24 02:55] VITALS: BP 123/59; PULSE 68; RESP 18; TEMP 37.1; O2SAT 94
[2025-06-24 06:15] LABS: Hematocrit 34.8 % (42.0-52.0); Hemoglobin 11.9 g/dl (14.0-18.0); Imm Gran Abs Auto 0.09 X10*3/uL (0.00-0.03); Imm Gran Pct Auto 0.6 % (0.0-0.4); Lymphocytes Absolute Auto 1.6 X10*3/uL (1.2-4.9); MANUAL DIFF FLAG SCAN; Mean Corpuscular HGB Conc 34.2 g/dl (31.0-36.0); Mean Corpuscular Hemoglobin 29.9 pg (27.0-33.0); Mean Corpuscular Volume 87.4 fL (80.0-98.0); NRBC Abs Auto 0.000 X10*3/uL (0.0-0.012); NRBC Pct Auto 0.0 /100WBC (0.0-0.2); Platelet Count 158 X10*3/uL (160-400); Red Blood Count 3.98 X10*6/uL (4.60-5.80); SCAN SMEAR FLAG 1; White Blood Count 15.5 X10*3/uL (4.8-10.8)
[2025-06-24 06:30] LABS: Anion Gap 11 (12-20); Blood Urea Nitrogen 13 mg/dL (9-16); Calcium 8.5 mg/dL (8.4-10.2); Carbon Dioxide 25 mmol/L (22-29); Chloride 107 mmol/L (96-108); Creatinine Clr Calc Pharmacy 85.4; Estimated Glomerular Filt Rate > 60; Potassium 4.5 mmol/L (3.3-5.1); Sodium 138 mmol/L (135-145)
[2025-06-24 07:44] VITALS: BP 142/67; PULSE 74; RESP 16; TEMP 37.1; O2SAT 95
--- NOTE | 2025-06-24 09:05 | HO.POSTANES ---
Post Anesthesia Evaluation Post Anesthesia Evaluation Date of Service: 06/24/25 Vital Signs: Vital Signs Temp Pulse Resp BP Pulse Ox O2 Del Method 06/24/25 07:44 98.7 F 74 16 142/67 H 95 Room Air 06/24/25 02:55 98.8 F 68 18 123/59 L 94 Room Air Anesthesia: General Mental Status: Awake Pain Control: Satisfactory Nausea/Vomiting: None Hydration: Adequate Anesthesia-Related Issues: No Anes. Related Issues
--- NOTE | 2025-06-24 09:13 | MHC.CM.PN ---
Addendum entered by Nyla St RN 06/24/25 09:21: Cleared for dc today. [facility] and [facility] updated in [facility]. Original Note: Patient lives in a home w/ his . Functionally independent. Uses CPAP - supplies through [facility]. Has purchased a wheeled walker to use post op. PCP Dr Carpenter Completed HCP naming his , Jessica, as primary and friend, Juan, as alternate. DP: Home w/ preferred VNA, [facility]. will transport. RN aware.
== END 2025-06-24 12:54 | disposition home health service (06) ==
LOC: HO.SSS 07:11 → HO.S3 12:49
PROVIDERS: Physician Assistant; PCP Internal Medicine; Visit Provider Orthopaedic Surgery
PROC: (CPT 27130; principal; 2025-06-23 09:30)
DX: M16.11 Unilateral primary osteoarthritis, right hip (principal); M25.551 Pain in right hip; I87.2 Venous insufficiency (chronic) (peripheral); K42.9 Umbilical hernia without obstruction or gangrene; F32.A Depression, unspecified; G47.33 Obstructive sleep apnea (adult) (pediatric); L85.3 Xerosis cutis; B35.4 Tinea corporis; E66.812 Obesity, class 2; Z68.35 Body mass index [BMI] 35.0-35.9, adult; Z79.82 Long term (current) use of aspirin; Z79.1 Long term (current) use of non-steroidal anti-inflammatories (NSAID); Z79.899 Other long term (current) drug therapy; Z99.89 Dependence on other enabling machines and devices; Z88.8 Allergy status to other drugs, medicaments and biological substances; Z87.891 Personal history of nicotine dependence
CPT/HCPCS: 27130; 36415; 72170; 80048; 83036; 85025; 86850; 86900; 86901; 87640; 87641; 88304; 88311; 93005; 97116; 97161; 97165; 97530; C1776; C9088; J0131; J0690; J1100; J1171; J1920; J2250; J2371; J2405; J2704; J2795; J3010; J7120

== ENCOUNTER → 2025-06-23 07:09 | Outpatient (BNV) | payer MEDICARE, SELFPAY | PROVIDERS: PCP Internal Medicine; Visit Provider Orthopaedic Surgery | DX: Z47.1 Aftercare following joint replacement surgery (principal); Z96.641 Presence of right artificial hip joint | CPT/HCPCS: 27130; 99024; G0180 ==

== ENCOUNTER → 2025-06-23 07:09 | Outpatient (BNV) | payer MEDICARE, SELFPAY | PROVIDERS: PCP Internal Medicine; Visit Provider Physician Assistant | DX: Z96.641 Presence of right artificial hip joint (principal) | CPT/HCPCS: 99222 ==

== ENCOUNTER → 2025-06-23 12:15 | Outpatient (BNV) | payer MEDICARE, SELFPAY | PROVIDERS: PCP Internal Medicine; Visit Provider Radiology Diagnostic Radiology | DX: Z96.641 Presence of right artificial hip joint (principal) | CPT/HCPCS: 72170 ==

== ENCOUNTER 2025-07-09 14:03 | Outpatient (AMB) | payer OTHER, MEDICAID, SELFPAY ==
--- NOTE | 2025-07-09 14:06 | MHC.OFFVIS ---
Intake Visit Reasons: 2WKPO: R SHARIFA w/NE 06/23/25 Intake Note: Cornel is a 74 year old male who presents today post operatively after undergoing a right total hip arthroplasty, performed by Dr. Tomlinson on DOS 06/23/25. Patient reports he is doing well despite his discomfort, states current pain level is a 5 out of 10. Patient is concerned of lower back pain in his right side. States pain is similar to the pain he had a hernia prior to having it removed. Allergies metronidazole (Flagyl) Allergy (Mild, Verified 07/09/25 14:13) light headed Medication List - Last Reconciled 07/09/25 by Laura Jacinto PA-C ascorbic acid (vitamin C) 500 mg PO BID aspirin 325 mg PO BID 42 days calcium-magnesium 300-300 mg 1 tab PO BEDTIME compress.stocking,knee,reg,lrg As directed 20-30 mm HG [CPAP NASAL: 6-16 cm Humidified Air ] docusate sodium 100 mg PO BID 30 days [Folding Front Wheeled walker Duration: 99 days] multivit [id number]-[id number] 6-dha 29 mg iron-1 mg -300 mg 1 cap PO .QD psyllium husk 0.52 grams PO BEDTIME pyridoxine (vitamin B6) ER 200 mg PO DAILY triamcinolone acetonide 0.025% 1 appl topical BID 14 days tryptophan 500 mg PO BEDTIME vitamin B complex 1 cap PO DAILY HPI HPI 2WKPO: R SHARIFA w/NE 06/23/25: Details: 74-year-old gentleman returns to the office today status post right total hip arthroplasty on 06/23/[address] Tomlinson. The patient is ambulating with a cane. He is transition to outpatient physical therapy. He states he has been taking 3-5 tablets of aspirin daily. He denies GI upset or bleeding. [facility] Medical History Arthritis Depression ARMIDA on CPAP Anesthesia complication Dry skin dermatitis Venous stasis dermatitis Umbilical hernia Obesity (BMI 30-39.9) Renal calculi Surgical History H/O inguinal hernia repair Social History Household Members: Spouse Housing: House Are you a primary customer care voice consultant to a significant other at home: No Do you presently have visiting nurse or other home services: No Alcohol intake: never Patient Tobacco Use Status: Never used Tobacco Tobacco use type: Cigarette Years Smoked: 8 quit 1974 e-Cigarette/Vaping Use: Never Used Second Hand Smoke Exposure: No service: No Current occupational status: employed Cognitive needs: No Hearing needs: No Vision needs: Yes (Glasses) Review of Systems Const All systems reviewed & are unremarkable except as noted in HPI and below Physical Exam Extrem Other: Right hip incision is clean dry and intact no surrounding erythema or drainage. He has no pain with hip flexion or range of motion. Calf supple and nontender neurovascularly intact. Assessment & Plan Assessment & Plan (1) S/P total right hip arthroplasty: Code(s): Z96.641 - Presence of right artificial hip joint Category: Surgical Plan: Micheline removed today Steri-Strips applied the patient will continue working with physical therapy to improve his gait and strengthening. I did advise against the amount aspirin he is taking daily and he should limit himself to 325 mg a bid day for up to 6 weeks postop. Patient expressed understanding but states he has been doing this for a long time and and has had no complications. The patient will continue with activities as tolerated and see us back at his routine postop appointment otherwise follow up sooner if needed. Coding Level of Care Code Global (58525) Diagnoses S/P total right hip arthroplasty Z96.641
--- OUTSIDE RECORDS SUMMARY | 2025-07-09 17:53 | XMS_ITS | Clinical Summary ---
Author Organization [employer] Address [address] [place] [address] [place] [address] Care Team Providers Care Roadability Machine Operator Name Role Phone Unavailable Primary Care Provider Unavailabl e Allergies No known active allergies Medications Tryptophan 500 MG capsule Take 1 capsule by mouth in the morning. Active aspirin (Aspirin Childrens) 81 MG chewable tablet Chew 81 mg in the morning. Active ascorbic acid (Vitamin C) 100 MG chewable tablet Chew 1 tablet Once per day. Active Social History Tobacco Use Types Packs/Day Years [...] Care Team (Late st Contact Info) Description 10/20/2025 2:00 PM EST [facility] [address] [place] [id number] Priti Young Health Maintenance Due Date Last [...] COVID-19 Vaccine ( - 2023-2 5 season) 2025 Influenza Vaccine (#1) 2025 Dental Oral Exam [...] Procedure Name Priority Date/Time Associated Diagnosis Comments Full PROPHYLAXIS - ADULT Routine 025 9:30 [...]
--- OUTSIDE RECORDS SUMMARY | 2025-07-09 17:53 | XMS_ITS | Clinical Summary ---
Author Organization [facility] Address [address] [facility] [facility] [address] [place] [address] Phone Care Team Providers Care Typists Supervisor Name Role Phone Skyler Montemayor NP Primary Care Provide r Medications ibuprofen (ADVIL,MOTRIN) 400 MG tablet 1 tablet Orally Three times a day Active tryptophan 500 mg Cap Take 1 capsule by mouth daily. Active Encounters Date Type Department Care Team Description 05/29/2025 Orders Only [facility] [address] [place] [id number] Homehealth, Interface ProviderMD from Last 3 Months Social History Tobacco Use Types Packs/Day Years Used Date Smoking Tobacco: Never Assessed Education Answer Date Recorded Are you interested in more education? Not on diamond e 05/29/2025 Are you concerned about learning? Not on file 05/29/2025 No 05/29/2025 No 05/29/2025 Digital Access Answer Date Recorded No 05/29/2025 No 05/29/2025 Reliable internet access at home? Not on file 05/29/2025 Device with a working camera? Not on file Sex and Gender Information Value Date Recorded Sex Assigned at Not on file Legal Sex Male 10:02 PM EDT Gender Identity Not on file Sexual Orientation Not on file Last Filed Vital Signs Vital Sign Reading Time Taken Comments Blood Pressure 104/60 03/05/2017 12:56 PM EDT Pulse 78 03/05/2017 12:56 PM EDT Temperature 36.2 C (97.2 F) 03/05/2017 12:56 PM EDT Respiratory Rate - - Oxygen Saturation - - Inhaled Oxygen Concentration - - Weight 77.1 kg (170 lb) 03/05/2017 12:56 PM EDT Height 165.1 cm (5' 5 ) 03/05/2017 12:56 PM EDT Body Mass Index 28.29 03/05/2017 12:56 PM EDT Plan of Treatment Not on file Medical Devices Not on file Insurance MEDICARE PART A & B [place] [facility] [place] [facility] & B MEDICARE PART A & B MEDICARE PART A & B [facility] & B Member Subscriber Plan / Payer (Ef fective 2011-Present) Name:Cornel Avina Member ID:[id number] Relation to Subscriber:Self Name:Cornel Avina Subscriber ID:[id number] Payer ID:[id number] Group ID:Not on file Type:Medicare Address: [facility] [email or web address] [address] [place] [phone] MEDICARE PART A & B [facility]IC[facility] RE[facility] MED[facility] A & B [place] RE[place]ACEMENT [facility] MEDICARE PART A & B [place] [facility] [facility] Care Teams Typists Supervisor Relationship Specialty Start Date End Date Skyler Montemayor NP PCP - General 10/09/19 Additional Source Comments The information contained in this document represents components of the legal health record. It is not the complete legal health record.[facility]
--- OUTSIDE RECORDS SUMMARY | 2025-07-09 17:53 | XMS_ITS | Encounter Summary ---
Author Organization [facility] Address [address] [facility] [address] [place] [address] Phone Care Team Providers Care Marine Service Manager Name Role Phone Radha Nance MD Primary Care Provider Skyler Montemayor NP Primary Care Provide r Encounter Details Date Type Department Care Team (Late st Contact Info) Description 08/25/2017 Ancillary Orders Virtual Department [address] [place] [address] Radha Nance MD [address] [facility] [address] [place] [address] H/O tobacco use, presenting hazards to health [...] health documented in this encounter Care Teams Marine Service Manager Relationship Specialty Start Date End Date Radha Nance MD [address] [place] [id number] PCP - General Family Medicine 08/28/17 10/08/19 Skyler Montemayor NP [address] [place] [address] [address] [place] [address] PCP - General 10/09/19 documented as of this encounter Additional Source Comments The information contained in this document represents components of the legal health record. It is not the complete legal health record.[facility]
--- OUTSIDE RECORDS SUMMARY | 2025-07-09 17:53 | XMS_ITS | Patient Health Record ---
Author Organization [facility] Address [address] [place] [address] Care Team Providers Care Coloring Room Worker Name Role Phone Almas Carpenter Primary Care Provider Hardeep Beltran Unavailable [phone] Allergies Allergen (clinical drug ingredient) Drug/Non Drug [...] primary osteoarthritis of the ankle and/or foot (815721101) Primary osteoarthritis, left ankle and foot (M19.072) Active confirmed Problem Acquired hammer toe of right foot (1920782947530848) Other hammer toe(s) (acquired), right foot (M20.41) Active confirmed Problem Acquired hammer toe of left foot (4364880512470853) Other hammer toe(s) (acquired), left foot (M20.42) Active confirmed Problem Peripheral venous insufficiency ([id number]) Venous insufficiency of both lower extremities (I87.2) [...] Coverage Start Date Coverage End Date [facility] Plan [address] [place] [phone] [id number] Cornel Avina Self - patient is the insured Medical (General) History Medical History History ICD Code Anxiety Back,Hip,and Knee pain Measles Chicken pox Surgical History Surgery Date(Month/Year) hernia 01/2010/01/2018
== END 2025-07-09 14:27 | disposition home or self-care (01) ==
LOC: HO.HOS 14:04
PROVIDERS: PCP Internal Medicine; Visit Provider Physician Assistant
DX: Z96.641 Presence of right artificial hip joint (principal)
CPT/HCPCS: 99024

== ENCOUNTER → 2025-07-09 14:03 | Outpatient (BNVA) | payer OTHER, MEDICAID, SELFPAY | PROVIDERS: PCP Internal Medicine; Visit Provider Physician Assistant | DX: Z47.1 Aftercare following joint replacement surgery (principal); Z96.641 Presence of right artificial hip joint; M54.50 Low back pain, unspecified; G89.29 Other chronic pain; K43.9 Ventral hernia without obstruction or gangrene | CPT/HCPCS: 99212 ==

== ENCOUNTER 2025-07-09 15:22 | Outpatient (AMB) | payer MEDICARE, SELFPAY ==
--- NOTE | 2025-07-09 15:32 | MHC.PC.OV ---
Vital Signs 07/09/25 15:33 Height 5 ft 5 in Weight 209 lb 8 oz BMI 34.9 BP 116/70 Blood Pressure Location Lt brachial Position Sitting Pulse 64 Pulse Source Pulse Oximeter Temp 97.3 F Temp Source Temporal Artery Scan Pulse Oximetry (%) 97 Oxygen Delivery Method Room Air Intake Visit Reasons: ? Hernia, abdominal pain Intake Note: Patient is here to follow up on Hernia?, abdominal pain. Marketing Planning Manager Required: No Crystalizer Tender: Not Required per policy Accompanied by: Self / Same As Patient Allergies metronidazole (Flagyl) Allergy (Mild, Verified 07/09/25 15:32) light headed Medication List - Last Reconciled 07/09/25 by Madelyn Elmore MD ascorbic acid (vitamin C) 500 mg PO BID aspirin 325 mg PO BID 42 days calcium-magnesium 300-300 mg 1 tab PO BEDTIME compress.stocking,knee,reg,lrg As directed 20-30 mm HG [CPAP NASAL: 6-16 cm Humidified Air ] diclofenac sodium 1% (Voltaren Arthritis Pain) 2 grams topical QID PRN 1 month docusate sodium 100 mg PO BID 30 days [Folding Front Wheeled walker Duration: 99 days] lidocaine 5% 1 patch topical DAILY 1 month multivit [id number] 6-dha 29 mg iron-1 mg -300 mg 1 cap PO .QD psyllium husk 0.52 grams PO BEDTIME pyridoxine (vitamin B6) ER 200 mg PO DAILY triamcinolone acetonide 0.025% 1 appl topical BID 14 days tryptophan 500 mg PO BEDTIME vitamin B complex 1 cap PO DAILY Tobacco use date assessed: 07/09/25 Fall risk assessment: 2 + Falls in past year Last assessed Fall Risk: 07/09/25 Dental Screening Dental Screen Date: 05/18/25 HPI HPI Comments History of Present Illness Details The patient is a 74-year-old male presenting with chronic back pain. The patient describes a chronic back pain that has been present intermittently for approximately 15 years, coinciding with his history of hernias. The pain is sharp, localized to the left side, and feels like a knife, affecting an area about 4 inches in diameter. The patient has tried various interventions, including home care assistant, massage, and heat application, which provide temporary relief. He reports that aspirin is the only medication that alleviates the pain, as other pcom-apl-jmhcoja medications like Tylenol and ibuprofen have been ineffective. The pain worsens in the morning and is exacerbated by poor posture. The patient reports having an abdominal hernia, which is scheduled for surgical repair in the first week of October with Dr. Alfaro. He previously had another hernia six or seven years ago, during which he experienced similar pain. The hernia is not painful as long as he avoids lifting heavy objects, but it is palpable near the umbilicus. Patient denies any fever, chills, weight changes, urine symtpoms. [facility] Medical History Arthritis Depression ARMIDA on CPAP Anesthesia complication Dry skin dermatitis Venous stasis dermatitis Umbilical hernia Obesity (BMI 30-39.9) Renal calculi Surgical History H/O inguinal hernia repair Social History Household Members: Spouse Housing: House Are you a primary post acute care registered nurse to a significant other at home: No Do you presently have visiting nurse or other home services: No Alcohol intake: never Patient Tobacco Use Status: Never used Tobacco Tobacco use type: Cigarette Years Smoked: 8 quit 1975 e-Cigarette/Vaping Use: Never Used Second Hand Smoke Exposure: No service: No Current occupational status: employed Cognitive needs: No Hearing needs: No Vision needs: Yes (Glasses) Questionnaire Thrive Questionnaire Date Thrive assessed: 06/24/25 I am a: Patient What is your living situation today?: I have a steady place to live Within the past 12 months, did the food you bought not last and you didn't have the money to get more?: Never true Within the past 12 months, did you worry whether your food would run out before you got money to buy more?: Never true Do you have trouble paying for medicines?: No Do you have trouble getting transportation to medical appointments?: No Do you have trouble paying your heating and electricity bill?: Yes Do you have trouble taking care of your child, family member or friend?: No Do you have trouble with day-to-day activities such as bathing, preparing meals, shopping, managing finances, etc.?: No Are you currently unemployed and looking for a job?: No Are you interested in more education?: Yes Please select the resources that you would like help with: Utilities Currently or been in a relationship where the following occur: No concerns reported THRIVE Score: 1 DELANO-7 AMB Questionnaire DELANO-7 Date DELANO - 7 assessed: 05/18/25 Source: Developed by Drs. Gurpreet Rehman, Patricia Connolly, Saúl Hernández and colleagues, with an educational vasile from [employer]. Review of Systems Const Details: Positives besides what was mentioned in HPI are in BOLD Constitutional: No Weight Change, No Fever, No Chills, No Night Sweats, No Fatigue, No Malaise ENT/Mouth: No Hearing Changes, No Ear Pain, No Nasal Congestion, No Sinus Pain, No Hoarseness, No sore throat, No Rhinorrhea, No Swallowing Difficulty Eyes: No Eye Pain, No Swelling, No Redness, No Foreign Body, No Discharge, No Vision Changes Cardiovascular: No Chest Pain, No SOB, No PND, No Dyspnea on Exertion, No Orthopnea, No Claudication, No Edema, No Palpitations Respiratory: No Cough, No Sputum, No Wheezing, No Smoke Exposure, No Dyspnea Gastrointestinal: No Nausea, No Vomiting, No Diarrhea, No Constipation, No Pain, No Heartburn, No Anorexia, No Dysphagia, No Hematochezia, No Melena, No Flatulence, No Jaundice Genitourinary: No Dysmenorrhea, No DUB, No Dyspareunia, No Dysuria, No Urinary Frequency, No Hematuria, No Urinary Incontinence, No Urgency, No Flank Pain, No Urinary Flow Changes, No Hesitancy Musculoskeletal: No Arthralgias, No Myalgias, No Joint Swelling, No Joint Stiffness, No Back Pain, No Neck Pain, No Injury History Skin: No Skin Lesions, No Pruritis, No Hair Changes, No Breast/Skin Changes, No Nipple Discharge Neuro: No Weakness, No Numbness, No Paresthesias, No Loss of Consciousness, No Syncope, No Dizziness, No Headache, No Coordination Changes, No Recent Falls Psych: No Anxiety/Panic, No Depression, No Insomnia, No Personality Changes, No Delusions, No Rumination, No SI/HI/AH/VH, No Social Issues, No Memory Changes, No Violence/Abuse Hx., No Eating Concerns Heme/Lymph: No Bruising, No Bleeding, No Transfusions History, No Lymphadenopathy Endocrine: No Polyuria, No Polydipsia, No Temperature Intolerance Physical exam (Primary Care) Vital Signs: Last Vital Signs Temp 97.3 F 07/09/25 15:33 Pulse 64 07/09/25 15:33 BP 116/70 07/09/25 15:33 Pulse Ox 97 07/09/25 15:33 Oxygen Delivery Method Room Air 07/09/25 15:33 BMI result Body Mass Index 34.9 Tobacco/Smoking Status: Tobacco use Status Tobacco use date assessed 07/09/25 07/09/25 15:39 Patient Tobacco Use Status Never used Tobacco 07/09/25 15:39 Tobacco use type Cigarette 07/09/25 15:39 e-Cigarette/Vaping Use Never Used 07/09/25 15:39 Thrive Assessment: Date of Thrive Assessment Date Thrive assessed 06/24/25 07/09/25 15:39 Currently or been in a relationship where the following occur: No concerns reported Const Other: Pertinent findings are in BOLD GENERAL APPEARANCE NAD, activity normal for age, well developed/ well nourished, no cyanosis, pallor, or diaphoresis. EYES lids/conjunctiva normal. EARS/NOSE/THROAT Mucous membranes moist, nares normal, lips/teeth normal uvula midline without oral pharyngeal erythema, exudate or swelling TMs normal bilaterally. No lymphangitis/lymphedema. HEAD/NECK normocephalic atraumatic, no facial trauma, neck is supple. RESPIRATORY respiratory effort normal, speaks in full sentences, no tripod position, no accessory muscle use. Lungs clear to auscultation without rhonchi, wheezes, rales CARDIAC Regular rate and rhythm, no edema. ABDOMINAL Soft, ND/NT. No evidence of fluid wave. No pulsatile masses on exam, rebound tenderness, Solorzano sign or pain over Mcburney's point. MUSCLES/EXTREMITIES patient uses a cane to ambulate. Tenderness in paraspinal muscle area on the left side. SKIN Warm, pink and dry. No rashes, dermatoses, petechiae or lesions. NEUROLOGICAL Speech is clear and appropriate. Normal level of consciousness. Gait and coordination are normal. 5/5 strength in all extremities. PSYCH Normal mood and affect. Judgement/competence is appropriate Coding Level of Care Code Est Pt Level 2 (50741) Diagnoses Chronic left-sided low back pain without sciatica M54.50; G89.29 Back pain laterality: left Sciatica presence: without sciatica Hernia of abdominal wall K43.9 Assessment & Plan Assessment & Plan (1) Chronic low back pain: Code(s): M54.50 - Low back pain, unspecified; G89.29 - Other chronic pain Category: Medical Qualifiers: Back pain laterality: left Sciatica presence: without sciatica Qualified Code(s): M54.50 - Low back pain, unspecified; G89.29 - Other chronic pain Plan: The patient will continue using aspirin for pain relief as it has been effective. Voltaren gel. Lidocaine patch. Continue PT. Acupuncture as it provided relief of pain in the past. (2) Hernia of abdominal wall: Code(s): K43.9 - Ventral hernia without obstruction or gangrene Category: Medical Plan: Patient is scheduled for hernia repair in . Plan I discussed with the patient the plan to manage his chronic back pain, emphasizing the use of aspirin, lidocaine patches, and topical cream as needed. We also talked about the importance of physical therapy to improve muscle function and alleviate pain. The patient is scheduled for hernia surgery in October, and we will monitor his progress post-operatively. Medications: New lidocaine 5% leave on most painful area for up to 12 hrs 1 patch topical DAILY 30 ea 1RF 1 month diclofenac sodium 1% (Voltaren Arthritis Pain) apply to single elbow, wrist or hand; for hand includes palm/fingers/back of hand 2 grams topical QID PRN 100 grams 1RF pain 1 month
[2025-07-09 15:33] VITALS: BP 116/70; PULSE 64; TEMP 36.3; O2SAT 97; BMI 34.9
== END 2025-07-09 16:02 | disposition home or self-care (01) ==
LOC: HO.HMCH 15:22
PROVIDERS: PCP Internal Medicine; Visit Provider Internal Medicine
DX: M54.50 Low back pain, unspecified (principal); G89.29 Other chronic pain; K43.9 Ventral hernia without obstruction or gangrene

== ENCOUNTER 2025-07-23 14:50 | Outpatient (AMB) | payer OTHER, MEDICAID, SELFPAY ==
--- NOTE | 2025-07-23 15:09 | MHC.PC.OV ---
Vital Signs 07/23/25 15:11 Height 5 ft 5 in Weight 213 lb 8 oz BMI 35.5 BP 134/72 Blood Pressure Location Lt brachial Position Sitting Pulse 61 Pulse Source Pulse Oximeter Temp 97.3 F Temp Source Temporal Artery Scan Pulse Oximetry (%) 97 Oxygen Delivery Method Room Air Intake Visit Reasons: sharp pain/left side, follow up Intake Note: Patient is here to follow up on Sharp pain on left side. Boats Renter Required: No Banquet Server: Not Required per policy Accompanied by: Self / Same As Patient Allergies metronidazole (Flagyl) Allergy (Mild, Verified 07/23/25 15:11) light headed Tobacco use date assessed: 07/23/25 Fall risk assessment: No Falls in past year Last assessed Fall Risk: 07/23/25 Dental Screening Dental Screen Date: 05/18/25 HPI HPI Comments History of Present Illness Details The patient is a 74-year-old male presenting F-U of lower back pain. The patient was seen in clinic two weeks ago ffor back pain. At that time he was prescribed voltaren gel, lidocaine patch and to continue working with PT. The patient has been working with PT since his Hip surgery on June 23, and despite ongoing physical therapy, he experiences severe pain described as sharp and stabbing, particularly in the mornings. The pain is exacerbated by movement and is somewhat alleviated by ice application and specific exercises recommended by a physical therapist. The patient reports nausea associated with the pain. The pain is better at night and after massage and physical therapy. He was not using the voltaren gel but reports mild improvement with the lidocaine patch. [facility] Medical History Arthritis Depression ARMIDA on CPAP Anesthesia complication Dry skin dermatitis Venous stasis dermatitis Umbilical hernia Obesity (BMI 30-39.9) Renal calculi Surgical History H/O inguinal hernia repair Social History Household Members: Spouse Housing: House Are you a primary point of care technician to a significant other at home: No Do you presently have visiting nurse or other home services: No Alcohol intake: never Patient Tobacco Use Status: Never used Tobacco Tobacco use type: Cigarette Years Smoked: 8 quit 1975 e-Cigarette/Vaping Use: Never Used Second Hand Smoke Exposure: No service: No Current occupational status: employed Cognitive needs: No Hearing needs: No Vision needs: Yes (Glasses) Questionnaire Thrive Questionnaire Date Thrive assessed: 02/14/25 I am a: Patient What is your living situation today?: I have a steady place to live Within the past 12 months, did the food you bought not last and you didn't have the money to get more?: Never true Within the past 12 months, did you worry whether your food would run out before you got money to buy more?: Never true Do you have trouble paying for medicines?: No Do you have trouble getting transportation to medical appointments?: No Do you have trouble paying your heating and electricity bill?: Yes Do you have trouble taking care of your child, family member or friend?: No Do you have trouble with day-to-day activities such as bathing, preparing meals, shopping, managing finances, etc.?: No Are you currently unemployed and looking for a job?: No Are you interested in more education?: Yes Please select the resources that you would like help with: Utilities Currently or been in a relationship where the following occur: No concerns reported THRIVE Score: 1 DELANO-7 AMB Questionnaire DELANO-7 Date DELANO - 7 assessed: 05/18/25 Source: Developed by Drs. Gurpreet Rehman, Patricia Connolly, Saúl Hernández and colleagues, with an educational vasile from [employer] Review of Systems Const Details: Positives besides what was mentioned in HPI are in BOLD Constitutional: No Weight Change, No Fever, No Chills, No Night Sweats, No Fatigue, No Malaise ENT/Mouth: No Hearing Changes, No Ear Pain, No Nasal Congestion, No Sinus Pain, No Hoarseness, No sore throat, No Rhinorrhea, No Swallowing Difficulty Eyes: No Eye Pain, No Swelling, No Redness, No Foreign Body, No Discharge, No Vision Changes Cardiovascular: No Chest Pain, No SOB, No PND, No Dyspnea on Exertion, No Orthopnea, No Claudication, No Edema, No Palpitations Respiratory: No Cough, No Sputum, No Wheezing, No Smoke Exposure, No Dyspnea Gastrointestinal: No Nausea, No Vomiting, No Diarrhea, No Constipation, No Pain, No Heartburn, No Anorexia, No Dysphagia, No Hematochezia, No Melena, No Flatulence, No Jaundice Genitourinary: No Dysmenorrhea, No DUB, No Dyspareunia, No Dysuria, No Urinary Frequency, No Hematuria, No Urinary Incontinence, No Urgency, No Flank Pain, No Urinary Flow Changes, No Hesitancy Musculoskeletal: No Arthralgias, No Myalgias, No Joint Swelling, No Joint Stiffness, No Back Pain, No Neck Pain, No Injury History Skin: No Skin Lesions, No Pruritis, No Hair Changes, No Breast/Skin Changes, No Nipple Discharge Neuro: No Weakness, No Numbness, No Paresthesias, No Loss of Consciousness, No Syncope, No Dizziness, No Headache, No Coordination Changes, No Recent Falls Psych: No Anxiety/Panic, No Depression, No Insomnia, No Personality Changes, No Delusions, No Rumination, No SI/HI/AH/VH, No Social Issues, No Memory Changes, No Violence/Abuse Hx., No Eating Concerns Heme/Lymph: No Bruising, No Bleeding, No Transfusions History, No Lymphadenopathy Endocrine: No Polyuria, No Polydipsia, No Temperature Intolerance Physical exam (Primary Care) Vital Signs: Last Vital Signs Temp 97.3 F 07/23/25 15:11 Pulse 61 07/23/25 15:11 BP 134/72 07/23/25 15:11 Pulse Ox 97 07/23/25 15:11 Oxygen Delivery Method Room Air 07/23/25 15:11 BMI result Body Mass Index 35.5 Tobacco/Smoking Status: Tobacco use Status Tobacco use date assessed 07/23/25 07/23/25 15:16 Patient Tobacco Use Status Never used Tobacco 07/23/25 15:16 Tobacco use type Cigarette 07/23/25 15:16 e-Cigarette/Vaping Use Never Used 07/23/25 15:16 Thrive Assessment: Date of Thrive Assessment Date Thrive assessed 02/14/25 07/23/25 15:16 Currently or been in a relationship where the following occur: No concerns reported Const Other: Pertinent findings are in BOLD GENERAL APPEARANCE NAD, activity normal for age, well developed/ well nourished, no cyanosis, pallor, or diaphoresis. EYES lids/conjunctiva normal. EARS/NOSE/THROAT Mucous membranes moist, nares normal, lips/teeth normal uvula midline without oral pharyngeal erythema, exudate or swelling TMs normal bilaterally. No lymphangitis/lymphedema. HEAD/NECK normocephalic atraumatic, no facial trauma, neck is supple. RESPIRATORY respiratory effort normal, speaks in full sentences, no tripod position, no accessory muscle use. Lungs clear to auscultation without rhonchi, wheezes, rales CARDIAC Regular rate and rhythm, no edema. ABDOMINAL Soft, ND/NT. No evidence of fluid wave. No pulsatile masses on exam, rebound tenderness, Solorzano sign or pain over Mcburney's point. MUSCLES/EXTREMITIES No abnormal range of motion, no swelling. Left lower back pain with muscle spasm. PAin improves with stretching of the back. SKIN Warm, pink and dry. No rashes, dermatoses, petechiae or lesions. NEUROLOGICAL Speech is clear and appropriate. Normal level of consciousness. Gait and coordination are normal. 5/5 strength in all extremities. PSYCH Normal mood and affect. Judgement/competence is appropriate Coding Level of Care Code Est Pt Level 4 (37323) Diagnoses Chronic left-sided low back pain without sciatica M54.50; G89.29 Back pain laterality: left Sciatica presence: without sciatica Time Spent (min) 30 Assessment & Plan Assessment & Plan (1) Chronic low back pain: Code(s): M54.50 - Low back pain, unspecified; G89.29 - Other chronic pain Category: Medical Qualifiers: Back pain laterality: left Sciatica presence: without sciatica Qualified Code(s): M54.50 - Low back pain, unspecified; G89.29 - Other chronic pain Plan: Patient's most recent Xray showed severe left hip OA. I recommended flexeril but the patient prefers not to take any medications so he declined treatment. Advised using voltaren gel and to continue with the lidocain patch as needed. ICE, PT and massage therapy as it provides relif of his pain. Plan During the visit, we discussed the patient's ongoing left hip pain and the management strategies currently in place, including the use of ice, patches, and voltaren gel for pain relief. I recommended continuing with physical therapy and stretching exercises to aid recovery and suggested a follow-up in four weeks to evaluate the effectiveness of the current pain management plan.
[2025-07-23 15:11] VITALS: BP 134/72; PULSE 61; TEMP 36.3; O2SAT 97; BMI 35.5
--- OUTSIDE RECORDS SUMMARY | 2025-07-23 19:07 | XMS_ITS | Patient Health Record ---
Author Organization [facility] Address [address] [place] [address] Care Team Providers Care Suction Roller Name Role Phone Almas Carpenter Primary Care Provider Hardeep Beltran Unavailable [phone] Allergies Allergen (clinical drug ingredient) Drug/Non Drug [...] primary osteoarthritis of the ankle and/or foot (824670808) Primary osteoarthritis, left ankle and foot (M19.072) Active confirmed Problem Acquired hammer toe of right foot (2215853532999405) Other hammer toe(s) (acquired), right foot (M20.41) Active confirmed Problem Acquired hammer toe of left foot (4435820878404869) Other hammer toe(s) (acquired), left foot (M20.42) Active confirmed Problem Peripheral venous insufficiency (56866281) Venous insufficiency of both lower extremities (I87.2) Active confirmed Plan Of Treatment Pending Test Test Name Order Date X ray : Foot, left 2V 05/07/2019 X ray : Foot, right 2V 05/07/2019 X ray : Foot, left 3V 11/27/2022 Insurance Providers Payer Name Payer Address Payer Phone Subscriber Number Group Number Insured Name Patient Relationship to Insured Coverage Start Date Coverage End Date [facility] Plan [address] [place] [phone] [id number] Cornel Avina Self - patient is the insured Medical (General) History Medical History History ICD Code Anxiety Back,Hip,and Knee pain Measles Chicken pox Surgical History Surgery Date(Month/Year) hernia 01/2010/01/2018
--- OUTSIDE RECORDS SUMMARY | 2025-07-23 19:07 | XMS_ITS | Clinical Summary ---
Author Organization [facility] Address [address] [place] [phone] Phone Care Team Providers Care Diamond Driller Helper Name Role Phone Skyler Montemayor NP Primary Care Provide r Medications ibuprofen (ADVIL,MOTRIN) 400 MG tablet 1 tablet Orally Three times a day Active tryptophan 500 mg Cap Take 1 capsule by mouth daily. Active Encounters Date Type Department Care Team Description 05/29/2025 Orders Only [facility] [address] [place] [id number] Homehealth, Interface ProviderMD from Last 3 Months [...] file Insurance MEDICARE PART A & B [place] [facility] B [place] [employer] RE[facility] A & B MEDICARE PART A & B MEDICARE PART A & B [facility]IC[facility] A & B Member Subscriber Plan / Payer (Ef fective 2011-Present) Name:Cornel Avina Member ID:[id number] Relation to Subscriber:Self Name:Cornel Avina Subscriber ID:[id number] Payer ID:[id number] Group ID:Not on file Type:Medicare Address: [facility] [employer] [address] [place] [phone] MEDICARE PART A & B MEDIC[facility] REPLAC[facility] MED[facility] PART A & B [place] MEDIC[place] REPLACEMENT [facility] MEDICARE PART A & B [place] [employer] [facility] Care Teams Diamond Driller Helper Relationship Specialty Start Date End Date Skyler Montemayor NP PCP - General 10/09/19 Additional Source Comments The information contained in this document represents components of the legal health record. It is not the complete legal health record.[facility]
--- OUTSIDE RECORDS SUMMARY | 2025-07-23 19:07 | XMS_ITS | Clinical Summary ---
Author Organization [employer] Address [address] [place] [address] [place] [address] Care Team Providers Care Reservation Sales Agent Name Role Phone Unavailable Primary Care Provider [...] Description 10/20/2025 2:00 PM EST Office Visit [facility] DENTAL [address] [place] [id number] Priti Young Health Maintenance Due Date Last [...]
--- OUTSIDE RECORDS SUMMARY | 2025-07-23 19:07 | XMS_ITS | Encounter Summary ---
Author Organization [facility] Address [address] [place] [address] Phone Care Team Providers Care Armor Officer Name Role Phone Radha Nance MD Primary Care Provider Skyler Montemayor NP Primary Care Provide r Encounter Details Date Type Department Care Team (Late st Contact Info) Description 08/25/2017 Ancillary Orders Virtual Department [address] [place] [address] Radha Nance MD [address] [place] [address] [email or web address] H/O tobacco use, presenting hazards to health [...] health documented in this encounter Care Teams Armor Officer Relationship Specialty Start Date End Date Radha Nance MD [address] [place] [address] PCP - General Family Medicine 08/28/17 10/08/19 Skyler Montemayor NP [address] [place] [address] [address] [place] [address] PCP - General 10/09/19 documented as of this encounter Additional Source Comments The information contained in this document represents components of the legal health record. It is not the complete legal health record.[facility]
== END 2025-07-23 15:45 | disposition home or self-care (01) ==
LOC: HO.HMCH 14:51
PROVIDERS: PCP Internal Medicine; Visit Provider Internal Medicine
DX: M54.50 Low back pain, unspecified (principal); G89.29 Other chronic pain

== ENCOUNTER 2025-08-06 11:53 | Outpatient (REF) | payer OTHER, MEDICAID, SELFPAY ==
--- NOTE | ~2025-08-06 | XR_ITS ---
EXAMINATION: XR PELVIS 1-2 VIEWS HISTORY: M25.559 - Pain in unspecified hip COMPARISON: Comparison is made with the prior examination dated 06/23/2025. FINDINGS: A single AP view of the pelvis is submitted. The patient is status post right total hip arthroplasty. The orthopedic elements are in anatomic alignment on this single AP view. There is no radiographic evidence of loosening. There is no fracture or dislocation. The left hip joint space is maintained. The soft tissues are unremarkable. XR/XR pelvis 1-2V IMPRESSION: Status post right total hip arthroplasty. Electronically signed by: Gurpreet Archibald MD 08/06/2025 02:29 PM EDT
== END 2025-08-06 11:54 | disposition home or self-care (01) ==
LOC: HO.HOSX 11:53
PROVIDERS: Visit Provider Orthopaedic Surgery
DX: Z47.1 Aftercare following joint replacement surgery (principal); Z96.641 Presence of right artificial hip joint; M25.551 Pain in right hip
CPT/HCPCS: 72170

== ENCOUNTER 2025-08-06 13:26 | Outpatient (AMB) | payer OTHER, MEDICAID, SELFPAY ==
--- NOTE | 2025-08-06 13:28 | A.OFFVIS_ITS ---
Vital Signs 08/06/25 13:39 Height 5 ft 5 in Weight 213 lb BMI 35.4 Intake Visit Reasons: 6WKPO: R SHARIFA w/NE 06/23/25 Intake Note: Cornel is a 74 year old male who presents today for a post operative appointment about about 6 weeks s/p Right SHARIFA 06/23/25. He continues to work with PT at [facility] in [place]. He reports that he is doing well , but has had an onset of left sided lower back pain. The Left lower back pain is more bothersome than the right. Allergies metronidazole (Flagyl) Allergy (Mild, Verified 07/23/25 15:11) light headed HPI HPI 6WKPO: R SHARIFA w/NE 06/23/25: Details: Cornel is a 74 year old male who presents today for a post operative appointment about about 6 weeks s/p Right SHARIFA 06/23/25. He continues to work with PT at [facility] in [place]. He reports that he is doing well , but has had an onset of left sided lower back pain. The Left lower back pain is more bothersome than the right. [facility] Medical History Arthritis Depression ARMIDA on CPAP Anesthesia complication Dry skin dermatitis Venous stasis dermatitis Umbilical hernia Obesity (BMI 30-39.9) Renal calculi Surgical History H/O inguinal hernia repair Social History Household Members: Spouse Housing: House Are you a primary home care liaison to a significant other at home: No Do you presently have visiting nurse or other home services: No Alcohol intake: never Patient Tobacco Use Status: Never used Tobacco Tobacco use type: Cigarette Years Smoked: 8 quit 1974 e-Cigarette/Vaping Use: Never Used Second Hand Smoke Exposure: No service: No Current occupational status: employed Cognitive needs: No Hearing needs: No Vision needs: Yes (Glasses) Physical Exam Exam Exam: + Trendelenberg gait No pain with hip ROM Inc c/d/i Vital Signs: BMI result Body Mass Index 35.4 Results Reviewed Results Reviewed: I personally reviewed relevant radiographs. Right SHARIFA in expected post operative position with no hardware complications or evidence of loosening Assessment & Plan Assessment & Plan (1) S/P total right hip arthroplasty: Code(s): Z96.641 - Presence of right artificial hip joint Category: Surgical Plan: Doing well s/p right SHARIFA. Continue PT for gait training. February d/c ASA. Discussed avoiding dental work and dental abx prophylaxis. f/u 6 weeks Orders: Orders XR pelvis 1-2V 08/06/25 M25.559 - Pain in unspecified hip Coding Level of Care Code Global (72806) Diagnoses S/P total right hip arthroplasty Z96.641
[2025-08-06 13:39] VITALS: BMI 35.4
== END 2025-08-06 13:59 | disposition home or self-care (01) ==
LOC: HO.HOS 13:27
PROVIDERS: PCP Internal Medicine; Visit Provider Orthopaedic Surgery
DX: Z96.641 Presence of right artificial hip joint (principal)
CPT/HCPCS: 99024

== ENCOUNTER → 2025-08-06 13:37 | Outpatient (BNV) | payer OTHER, MEDICAID, SELFPAY | PROVIDERS: Visit Provider Radiology Diagnostic Radiology | DX: M25.551 Pain in right hip (principal); Z96.641 Presence of right artificial hip joint | CPT/HCPCS: 72170 ==

== ENCOUNTER 2025-08-20 15:56 | Outpatient (AMB) | payer OTHER, MEDICAID, SELFPAY ==
--- NOTE | 2025-08-20 15:59 | A.OFFPC_ITS ---
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 Worker Required: No Embryology Professor: Not Required per policy Accompanied by: Self / Same As Patient Allergies metronidazole (Flagyl) Allergy (Mild, Verified 08/20/25 16:04) light headed Tobacco use date assessed: 08/20/25 Fall risk assessment: 1 Fall in past year Last assessed Fall Risk: 08/20/25 Dental Screening Dental Screen Date: 08/20/25 Did you have a dental visit in the last 12 months?: No Did you have a dental problem in the last 6 months where you did not have access to dental care?: No Was dental information given to patient?: Patient has dentist HPI HPI Comments History of Present Illness Details The patient is a 74-year-old male presenting for follow-up regarding back pain. The patient reports his back pain improved with PT. The musculoskeletal pain has been primarily affecting the hip area, with the patient noting that the pain is more pronounced on one side due to imbalance. The patient has been engaging in physical therapy twice a week and performing daily exercises to manage the condition. The patient reports that the use of a specialized pillow and shoe insert has helped alleviate some of the discomfort and improve balance. The patient is scheduled to see an orthopedic surgeon in August for further evaluation. [facility] Medical History Arthritis Depression ARMIDA on CPAP Anesthesia complication Dry skin dermatitis Venous stasis dermatitis Umbilical hernia Obesity (BMI 30-39.9) Renal calculi Surgical History H/O inguinal hernia repair Social History Household Members: Spouse Housing: House Are you a primary rn care manager to a significant other at home: No Do you presently have visiting nurse or other home services: No Alcohol intake: never Patient Tobacco Use Status: Never used Tobacco Tobacco use type: Cigarette Years Smoked: 8 quit 1975 e-Cigarette/Vaping Use: Never Used Second Hand Smoke Exposure: No service: No Current occupational status: employed Cognitive needs: No Hearing needs: No Vision needs: Yes (Glasses) Questionnaire Thrive Questionnaire Date Thrive assessed: 02/14/25 I am a: Patient What is your living situation today?: I have a steady place to live Within the past 12 months, did the food you bought not last and you didn't have the money to get more?: Never true Within the past 12 months, did you worry whether your food would run out before you got money to buy more?: Never true Do you have trouble paying for medicines?: No Do you have trouble getting transportation to medical appointments?: No Do you have trouble paying your heating and electricity bill?: Yes Do you have trouble taking care of your child, family member or friend?: No Do you have trouble with day-to-day activities such as bathing, preparing meals, shopping, managing finances, etc.?: No Are you currently unemployed and looking for a job?: No Are you interested in more education?: Yes Please select the resources that you would like help with: Utilities Currently or been in a relationship where the following occur: No concerns reported THRIVE Score: 1 AUDIT C Alcohol Use Questionnaire (AUDIT-C) 1. How often do you have a drink containing alcohol?: Never 3. How often do you have six or more drinks on one occasion?: Never Total Score: 0 DELANO-7 AMB Questionnaire DELANO-7 Date DELANO - 7 assessed: 05/18/25 Source: Developed by Drs. Gurpreet Rehman, Patricia Connolly, Saúl Hernández and colleagues, with an educational vasile from [employer]. Review of Systems Const Details: Positives besides what was mentioned in HPI are in BOLD Constitutional: No Weight Change, No Fever, No Chills, No Night Sweats, No Fatigue, No Malaise ENT/Mouth: No Hearing Changes, No Ear Pain, No Nasal Congestion, No Sinus Pain, No Hoarseness, No sore throat, No Rhinorrhea, No Swallowing Difficulty Eyes: No Eye Pain, No Swelling, No Redness, No Foreign Body, No Discharge, No Vision Changes Cardiovascular: No Chest Pain, No SOB, No PND, No Dyspnea on Exertion, No Orthopnea, No Claudication, No Edema, No Palpitations Respiratory: No Cough, No Sputum, No Wheezing, No Smoke Exposure, No Dyspnea Gastrointestinal: No Nausea, No Vomiting, No Diarrhea, No Constipation, No Pa in, No Heartburn, No Anorexia, No Dysphagia, No Hematochezia, No Melena, No Flatulence, No Jaundice Genitourinary: No Dysmenorrhea, No DUB, No Dyspareunia, No Dysuria, No Urinary Frequency, No Hematuria, No Urinary Incontinence, No Urgency, No Flank Pain, No Urinary Flow Changes, No Hesitancy Musculoskeletal: No Arthralgias, No Myalgias, No Joint Swelling, No Joint Stiffness, No Back Pain, No Neck Pain, No Injury History Skin: No Skin Lesions, No Pruritis, No Hair Changes, No Breast/Skin Changes, No Nipple Discharge Neuro: No Weakness, No Numbness, No Paresthesias, No Loss of Consciousness, No Syncope, No Dizziness, No Headache, No Coordination Changes, No Recent Falls Psych: No Anxiety/Panic, No Depression, No Insomnia, No Personality Changes, No Delusions, No Rumination, No SI/HI/AH/VH, No Social Issues, No Memory Changes, No Violence/Abuse Hx., No Eating Concerns Heme/Lymph: No Bruising, No Bleeding, No Transfusions History, No Lymphadenopathy Endocrine: No Polyuria, No Polydipsia, No Temperature Intolerance Physical exam (Primary Care) Vital Signs: Last Vital Signs Pulse 67 08/20/25 16:01 BP 126/68 08/20/25 16:01 Pulse Ox 97 08/20/25 16:01 Oxygen Delivery Method Room Air 08/20/25 16:01 BMI result Body Mass Index 36.0 Tobacco/Smoking Status: Tobacco use Status Tobacco use date assessed 08/20/25 08/20/25 16:02 Patient Tobacco Use Status Never used Tobacco 08/20/25 15:59 Tobacco use type Cigarette 08/20/25 15:59 e-Cigarette/Vaping Use Never Used 08/20/25 15:59 Thrive Assessment: Date of Thrive Assessment Date Thrive assessed 02/14/25 08/20/25 15:59 Currently or been in a relationship where the following occur: No concerns reported Const Other: Pertinent findings are in BOLD GENERAL APPEARANCE NAD, activity normal for age, well developed/ well nourished, no cyanosis, pallor, or diaphoresis. EYES lids/conjunctiva normal. EARS/NOSE/THROAT Mucous membranes moist, nares normal, lips/teeth normal uvula midline without oral pharyngeal erythema, exudate or swelling TMs normal bilaterally. No lymphangitis/lymphedema. HEAD/NECK normocephalic atraumatic, no facial trauma, neck is supple. RESPIRATORY respiratory effort normal, speaks in full sentences, no tripod position, no accessory muscle use. Lungs clear to auscultation without rhonchi, wheezes, rales CARDIAC Regular rate and rhythm, no edema. ABDOMINAL Soft, ND/NT. No evidence of fluid wave. No pulsatile masses on exam, rebound tenderness, Solorzano sign or pain over Mcburney's point. MUSCLES/EXTREMITIES No abnormal range of motion, no swelling. SKIN Warm, pink and dry. No rashes, dermatoses, petechiae or lesions. NEUROLOGICAL Speech is clear and appropriate. Normal level of consciousness. Gait and coordination are normal. 5/5 strength in all extremities. PSYCH Normal mood and affect. Judgement/competence is appropriate Coding Level of Care Code Est Pt Level 3 (76781) Diagnoses Arthritis, hip M16.10 Assessment & Plan Assessment & Plan (1) Arthritis, hip: Code(s): M16.10 - Unilateral primary osteoarthritis, unspecified hip Category: Medical Plan: Continue PT as it was helpful in the past. Recommended continue using special pillow and shoe inserts prescribed by PT. Follow-up scheduled with orthopaedics surgery. Plan During the visit, we discussed the patient's ongoing musculoskeletal pain and balance issues. I recommended continuing physical therapy and daily exercises to manage these conditions. We also talked about the upcoming appointment with the orthopedic surgeon for further evaluation.
[2025-08-20 16:01] VITALS: BP 126/68; PULSE 67; O2SAT 97; BMI 36.0
--- OUTSIDE RECORDS SUMMARY | 2025-08-20 19:22 | XMS_ITS | Encounter Summary ---
Author Organization [facility] Address [address] [place] [address] Phone Care Team Providers Care Rim Turning Machine Operator Name Role Phone Radha Nance MD Primary Care Provider Skyler Montemayor NP Primary Care Provide r Encounter Details Date Type Department Care Team (Late st Contact Info) Description 08/25/2017 Ancillary Orders Virtual Department [address] [place] [address] Radha Nance MD [address] [facility] [address] [place] [address] H/O tobacco use, presenting hazards to health [...] health documented in this encounter Care Teams Rim Turning Machine Operator Relationship Specialty Start Date End Date Radha Nance MD [address] [place] [id number] PCP - General Family Medicine 08/28/17 10/08/19 Skyler Montemayor NP [address] [place] [address] [address] [place] [address] PCP - General 10/09/19 documented as of this encounter Additional Source Comments The information contained in this document represents components of the legal health record. It is not the complete legal health record.[facility]
--- OUTSIDE RECORDS SUMMARY | 2025-08-20 19:22 | XMS_ITS | Clinical Summary ---
Author Organization [facility] Address [address] [place] [address] Phone Care Team Providers Care All Source Analyst Name Role Phone Skyler Montemayor NP Primary Care Provide r Medications ibuprofen (ADVIL,MOTRIN) 400 MG tablet 1 tablet Orally Three times a day Active tryptophan 500 mg Cap Take 1 capsule by mouth daily. Active Encounters Date Type Department Care Team Description 05/29/2025 Orders Only [facility] [address] [place] [id number] Homehealth, Interface ProviderMD from Last 3 Months [...] file Insurance MEDICARE PART A & B [place] [facility] & B [place] [facility]ICARE PART A & B MEDICARE PART A & B MEDICARE PART A & B MEDICARE REPL[facility]EMENT [facility] MEDICARE PART A & B Member Subscriber Plan / Payer (Ef fective 2011-Present) Name:Cornel Avina Member ID:[id number] Relation to Subscriber:Self Name:Cornel Avina Subscriber ID:[id number] Payer ID:[id number] Group ID:Not on file Type:Medicare Address: [facility] [employer] [address] [place] [phone] MEDICARE PART A & B MEDICARE REPLACEMENT [facility] PART A & B [place] [facility] REPLACEMENT [facility] MEDICARE PART A & B [place] [facility] Care Teams All Source Analyst Relationship Specialty Start Date End Date Skyler Montemayor NP PCP - General 10/09/19 Additional Source Comments The information contained in this document represents components of the legal health record. It is not the complete legal health record.[facility]
--- OUTSIDE RECORDS SUMMARY | 2025-08-20 19:22 | XMS_ITS | Patient Health Record ---
Author Organization [facility] Address [address] [address] Care Team Providers Care Insulation Worker Apprentice Name Role Phone Almas Carpenter Primary Care Provider Hardeep Kimball Unavailable [phone] Allergies Allergen (clinical drug ingredient) Drug/Non Drug [...] primary osteoarthritis of the ankle and/or foot (893077299) Primary osteoarthritis, left ankle and foot (M19.072) Active confirmed Problem Acquired hammer toe of right foot (5233585875890286) Other hammer toe(s) (acquired), right foot (M20.41) Active confirmed Problem Acquired hammer toe of left foot (4054220760338539) Other hammer toe(s) (acquired), left foot (M20.42) Active confirmed Problem Peripheral venous insufficiency (45194420) Venous insufficiency of both lower extremities (I87.2) Active confirmed Plan Of Treatment Pending Test Test Name Order Date X ray : Foot, left 2V 05/07/2019 X ray : Foot, right 2V 05/07/2019 X ray : Foot, left 3V 11/27/2022 Insurance Providers Payer Name Payer Address Payer Phone Subscriber Number Group Number Insured Name Patient Relationship to Insured Coverage Start Date Coverage End Date [facility] [address] [place] [phone] [id number] Cornel Avina Self - patient is the insured Medical (General) History Medical History History ICD Code Anxiety Back,Hip,and Knee pain Measles Chicken pox Surgical History Surgery Date(Month/Year) hernia 01/2010/01/2018
--- OUTSIDE RECORDS SUMMARY | 2025-08-20 19:22 | XMS_ITS | Clinical Summary ---
Author Organization [employer] Address [address] [place] [address] [place] [address] Care Team Providers Care Load Dispatcher Name Role Phone Unavailable Primary Care Provider [...] Description 10/20/2025 2:00 PM EST Office Visit [facility] DENTAL [address] [place] [address] Priti Young Health Maintenance Due Date Last [...]
== END 2025-08-20 16:18 | disposition home or self-care (01) ==
LOC: HO.HMCH 15:56
PROVIDERS: PCP Internal Medicine; Visit Provider Internal Medicine
DX: M16.10 Unilateral primary osteoarthritis, unspecified hip (principal)

== ENCOUNTER 2025-09-03 15:24 | Outpatient (AMB) | payer OTHER, MEDICAID, SELFPAY ==
--- NOTE | 2025-09-03 15:26 | MHC.PC.OV ---
Vital Signs 09/03/25 15:28 Height 5 ft 5 in Weight 220 lb 2 oz BMI 36.6 BP 146/68 H Blood Pressure Location Lt brachial Position Sitting Pulse 68 Pulse Source Pulse Oximeter Temp 97.5 F Temp Source Temporal Artery Scan Pulse Oximetry (%) 95 Oxygen Delivery Method Room Air Intake Visit Reasons: discuss new orthotic inserts Intake Note: Patient is here to follow up on discuss new orthopedic inserts. Edge Banding Machine Offbearer Required: No Director Of Materials: Not Required per policy Accompanied by: Self / Same As Patient Allergies metronidazole (Flagyl) Allergy (Mild, Verified 09/03/25 15:28) light headed Medication List - Last Reconciled 09/03/25 by Madelyn Elmore MD ascorbic acid (vitamin C) 500 mg PO BID aspirin 325 mg PO BID 42 days calcium-magnesium 300-300 mg 1 tab PO BEDTIME compress.stocking,knee,reg,lrg As directed 20-30 mm HG [CPAP NASAL: 6-16 cm Humidified Air ] diclofenac sodium 1% (Voltaren Arthritis Pain) 2 grams topical QID PRN 1 month docusate sodium 100 mg PO BID 30 days [Folding Front Wheeled walker Duration: 99 days] lidocaine 5% 1 patch topical DAILY 1 month multivit 62-khzz-bolwie 6-dha 29 mg iron-1 mg -300 mg 1 cap PO .QD psyllium husk 0.52 grams PO BEDTIME pyridoxine (vitamin B6) ER 200 mg PO DAILY triamcinolone acetonide 0.025% 1 appl topical BID 14 days tryptophan 500 mg PO BEDTIME vitamin B complex 1 cap PO DAILY Tobacco use date assessed: 09/03/25 Fall risk assessment: No Falls in past year Last assessed Fall Risk: 09/03/25 Dental Screening Dental Screen Date: 08/20/25 HPI HPI Comments History of Present Illness Details The patient is a 74-year-old male presenting for a referral to a custodian manager for new orthotic inserts. His current orthotics are worn out, and he reports a wobbly gait and leaning to the right since his total hip replacement on June 23. The patient requested to be seen by Farshad Sanchez MD specifically. The patient also has ongoing back pain, which he states is slowly improving with exercises and topical cream. He takes aspirin 325 mg for pain, which he finds effective, taking two or three tablets at night. The patient's weight has increased significantly over the years, from 145 pounds in 2008 to a current weight of 220 pounds. 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 He is a vegetarian with a diet high in starches, carbohydrates, cheese, and butter, and he has been eating ice cream more frequently for comfort since his surgery. His nightly medications include calcium magnesium, psyllium seed capsules, and tryptophan, the last of which he has taken for 15 years for sleep. He also takes a multivitamin and B-complex vitamins daily. [facility] Medical History Arthritis Depression ARMIDA on CPAP Anesthesia complication Dry skin dermatitis Venous stasis dermatitis Umbilical hernia Obesity (BMI 30-39.9) Renal calculi Surgical History H/O inguinal hernia repair Social History Household Members: Spouse Housing: House Are you a primary palliative care nurse practitioner to a significant other at home: No Do you presently have visiting nurse or other home services: No Alcohol intake: never Patient Tobacco Use Status: Former Tobacco user Tobacco use type: Cigarette Years Smoked: 8 quit 1975 e-Cigarette/Vaping Use: Never Used Second Hand Smoke Exposure: No service: No Current occupational status: employed Cognitive needs: No Hearing needs: No Vision needs: Yes (Glasses) Questionnaire Thrive Questionnaire Date Thrive assessed: 02/14/25 I am a: Patient What is your living situation today?: I have a steady place to live Within the past 12 months, did the food you bought not last and you didn't have the money to get more?: Never true Within the past 12 months, did you worry whether your food would run out before you got money to buy more?: Never true Do you have trouble paying for medicines?: No Do you have trouble getting transportation to medical appointments?: No Do you have trouble paying your heating and electricity bill?: Yes Do you have trouble taking care of your child, family member or friend?: No Do you have trouble with day-to-day activities such as bathing, preparing meals, shopping, managing finances, etc.?: No Are you currently unemployed and looking for a job?: No Are you interested in more education?: Yes Please select the resources that you would like help with: Utilities Currently or been in a relationship where the following occur: No concerns reported THRIVE Score: 1 DELANO-7 AMB Questionnaire DELANO-7 Date DELANO - 7 assessed: 05/18/25 Source: Developed by Drs. Gurpreet Rehman, Patricia Connolly, Saúl Hernández and colleagues, with an educational vasile from [employer]. Review of Systems Const Details: As per HPI. Physical exam (Primary Care) Vital Signs: Last Vital Signs Temp 97.5 F 09/03/25 15:28 Pulse 68 09/03/25 15:28 BP 146/68 H 09/03/25 15:28 Pulse Ox 95 09/03/25 15:28 Oxygen Delivery Method Room Air 09/03/25 15:28 BMI result Body Mass Index 36.6 Tobacco/Smoking Status: Tobacco use Status Tobacco use date assessed 09/03/25 09/03/25 15:32 Patient Tobacco Use Status Former Tobacco user 09/03/25 15:32 Tobacco use type Cigarette 09/03/25 15:32 e-Cigarette/Vaping Use Never Used 09/03/25 15:32 Thrive Assessment: Date of Thrive Assessment Date Thrive assessed 02/14/25 09/03/25 15:32 Currently or been in a relationship where the following occur: No concerns reported Const Other: Pertinent findings are in BOLD GENERAL APPEARANCE NAD, activity normal for age, well developed/ well nourished, no cyanosis, pallor, or diaphoresis. EYES lids/conjunctiva normal. EARS/NOSE/THROAT Mucous membranes moist, nares normal, lips/teeth normal uvula midline without oral pharyngeal erythema, exudate or swelling TMs normal bilaterally. No lymphangitis/lymphedema. HEAD/NECK normocephalic atraumatic, no facial trauma, neck is supple. RESPIRATORY respiratory effort normal, speaks in full sentences, no tripod position, no accessory muscle use. Lungs clear to auscultation without rhonchi, wheezes, rales CARDIAC Regular rate and rhythm, no edema. ABDOMINAL Soft, ND/NT. No evidence of fluid wave. No pulsatile masses on exam, rebound tenderness, Solorzano sign or pain over Mcburney's point. MUSCLES/EXTREMITIES No abnormal range of motion, no swelling. SKIN Warm, pink and dry. No rashes, dermatoses, petechiae or lesions. NEUROLOGICAL Speech is clear and appropriate. Normal level of consciousness. Gait and coordination are normal. 5/5 strength in all extremities. PSYCH Normal mood and affect. Judgement/competence is appropriate Coding Level of Care Code Est Pt Level 4 (11534) Diagnoses Orthotic training Z47.89 Obesity (BMI 30-39.9) E66.9 Time Spent (min) 30 Assessment & Plan Assessment & Plan (1) Orthotic training: Code(s): Z47.89 - Encounter for other orthopedic aftercare Category: Medical Plan: - The patient complains of a wobbly gait, leaning to the right, and worn-out orthotics since his total hip replacement. - A referral will be placed to podiatry (Dr. Sanchez) for evaluation and fitting for new orthotic inserts as requested by the patient. (2) Obesity (BMI 30-39.9): Code(s): E66.9 - Obesity, unspecified Category: Medical Plan: - The patient weighed 220 lbs today, a 4 lb increase from 10 days ago. - Extensive dietary counseling was provided, emphasizing that diet is the most critical factor for weight loss. - Recommendations included reducing or eliminating sugar, ice cream, pasta, bread, cheese, and butter. - It was discussed that weight loss would ease the strain on his back and improve his overall health. - The patient was encouraged to continue walking for exercise. Plan I addressed the patient's primary reason for visit, which was to obtain a referral to a custodian manager for new orthotics. I informed him that the referral to Dr. Sanchez would be placed in the system. We had an extensive discussion about his diet and weight. I explained that diet is the garcia factor in weight loss, more so than exercise alone. I recommended he try to eliminate or cut back on ice cream, pasta, cheese, butter, and bread to facilitate weight loss. I counseled him that while giving up these foods may seem like a loss of enjoyment, the improvement in his overall health, mobility, and back pain would be a significant benefit. The patient acknowledged the advice and understood that making small changes is better than no change at all. We also reviewed his current medications and confirmed his follow-up appointment with me on September 29. Orders: Referrals Podiatry Referral Z47.89 - Encounter for other orthopedic aftercare
[2025-09-03 15:28] VITALS: BP 146/68; PULSE 68; TEMP 36.4; O2SAT 95; BMI 36.6
--- OUTSIDE RECORDS SUMMARY | 2025-09-03 18:21 | XMS_ITS | Patient Health Record ---
Author [facility] Address [address] [place] [address] Care Team Providers Care Senior Trial Attorney Name Role Phone Almas Carpenter Primary Care Provider Hardeep Kimball Unavailable [phone] Allergies Allergen (clinical drug ingredient) Drug/Non Drug [...] primary osteoarthritis of the ankle and/or foot (071933485) Primary osteoarthritis, left ankle and foot (M19.072) Active confirmed Problem Acquired hammer toe of right foot (0974967506806346) Other hammer toe(s) (acquired), right foot (M20.41) Active confirmed Problem Acquired hammer toe of left foot (9346904753904783) Other hammer toe(s) (acquired), left foot (M20.42) Active confirmed Problem Peripheral venous insufficiency (45551772) Venous insufficiency of both lower extremities (I87.2) Active confirmed Plan Of Treatment Pending Test Test Name Order Date X ray : Foot, left 2V 05/07/2019 X ray : Foot, right 2V 05/07/2019 X ray : Foot, left 3V 11/27/2022 Insurance Providers Payer Name Payer Address Payer Phone Subscriber Number Group Number Insured Name Patient Relationship to Insured Coverage Start Date Coverage End Date [facility] [address] [place] [phone] [id number] Cornel Avina Self - patient is the insured Medical (General) History Medical History History ICD Code Anxiety Back,Hip,and Knee pain Measles Chicken pox Surgical History Surgery Date(Month/Year) hernia 01/2010/01/2018
--- OUTSIDE RECORDS SUMMARY | 2025-09-03 18:21 | XMS_ITS | Clinical Summary ---
Author Organization [facility] Address [address] [place] [address] [place] [address] Care Team Providers Care Neon Molder Name Role Phone Unavailable Primary Care Provider [...] Description 10/20/2025 2:00 PM EST Office Visit [facility] DENTAL [address] [place] [address] Priti Young Health Maintenance Due Date Last [...]
--- OUTSIDE RECORDS SUMMARY | 2025-09-03 18:21 | XMS_ITS | Encounter Summary ---
Author Organization [facility] Address [address] [facility] [place] [address] Phone Care Team Providers Care Stained Glass Window Designer Name Role Phone Radha Nance MD Primary Care Provider Skyler Montemayor NP Primary Care Provide r Encounter Details Date Type Department Care Team (Late st Contact Info) Description 08/25/2017 Ancillary Orders Virtual Department 30 [place] [address] Radha Nance MD [address] [facility] [address] [place] [address] H/O tobacco use, presenting hazards to health [...] health documented in this encounter Care Teams Stained Glass Window Designer Relationship Specialty Start Date End Date Radha Nance MD [address] [place] [address] PCP - General Family Medicine 08/28/17 10/08/19 Skyler Montemayor NP [address] [place] [address] [address] [place] [address] PCP - General 10/09/19 documented as of this encounter Additional Source Comments The information contained in this document represents components of the legal health record. It is not the complete legal health record.[facility]
--- OUTSIDE RECORDS SUMMARY | 2025-09-03 18:21 | XMS_ITS | Clinical Summary ---
Author Organization [facility] Address [address] [facility] [address] [place] [address] Phone Care Team Providers Care Secondary School Registrar Name Role Phone Skyler Montemayor NP Primary Care Provide r Medications ibuprofen (ADVIL,MOTRIN) 400 MG tablet 1 tablet Orally Three times a day Active tryptophan 500 mg Cap Take 1 capsule by mouth daily. Active Social History Tobacco Use Types Packs/Day [...] file Insurance MEDICARE PART A & B [place] MEDICARE REPLACEMENT [facility] MEDICARE PART A & B [place] MED[place] REPLAC[place] [facility] MED[facility] PART A & B MEDICARE PART A & B MEDICARE PART A & B [place] MEDICARE REPLACEMENT [facility] MEDICARE PART A & B Member Subscriber Plan / Payer (Ef fective 2011-Present) Name:Kailyn Anupam Member ID:[id number] Relation to Subscriber:Self Name:Kailyn Anupam Subscriber ID:[id number] Payer ID:[id number] Group ID:Not on file Type:Medicare Address: [employer] [address] [place] [phone] MEDICARE PART A & B Member Subscriber Plan / Payer (Ef fective 2011-Present) Name:Cornel Avina M Member ID:[id number] Relation to Subscriber:Self Name:Cornel Avina M Subscriber ID:[id number] Payer ID:[id number] Group ID:Not on file Type:Medicare Address: [employer] [address] MEDICARE REPLACEMENT [facility] MEDICARE PART A & B [place] MEDICARE REPLACEMENT [facility] MEDICARE PART A & B [place] MEDICARE REPLACEMENT [facility] [employer] Care Teams Secondary School Registrar Relationship Specialty Start Date End Date Skyler Montemayor NP PCP - General 10/09/19 Additional Source Comments The information contained in this document represents components of the legal health record. It is not the complete legal health record.[facility]
== END 2025-09-03 16:05 | disposition home or self-care (01) ==
LOC: HO.HMCH 15:25
PROVIDERS: PCP Internal Medicine; Visit Provider Internal Medicine
DX: E66.9 Obesity, unspecified (principal); Z47.89 Encounter for other orthopedic aftercare; Z68.36 Body mass index [BMI] 36.0-36.9, adult

== ENCOUNTER 2025-09-21 13:31 | Outpatient (AMB) | payer OTHER, MEDICAID, SELFPAY ==
--- NOTE | 2025-09-21 13:32 | MHC.OFFVIS ---
Intake Visit Reasons: PO: R SHARIFA w/NE 06/23/25-follow up Intake Note: Cornel is a 74 year old male who presents today for a post operative appointment about 3 Months s/p Right SHARIFA 06/23/25. Patient reports that he is doing well, every day seems a bit easier. He is leaning over his right side when walking and he is wondering if this will correct itself - he is working with Physical therapy. He is asking when he can lean over/stoop. He mentions that although his left lower back is improving - it is still painful. Allergies metronidazole (Flagyl) Allergy (Mild, Verified 09/21/25 13:36) light headed HPI HPI PO: R SHARIFA w/NE 06/23/25-follow up: Details: Cornel is a 74 year old male who presents today for a post operative appointment about 3 Months s/p Right SHARIFA 06/23/25. Patient reports that he is doing well, every day seems a bit easier. He is leaning over his right side when walking and he is wondering if this will correct itself - he is working with Physical therapy. He is asking when he can lean over/stoop. He mentions that although his left lower back is improving - it is still painful. [facility] Medical History Arthritis Depression ARMIDA on CPAP Anesthesia complication Dry skin dermatitis Venous stasis dermatitis Umbilical hernia Obesity (BMI 30-39.9) Renal calculi Surgical History H/O inguinal hernia repair Social History Household Members: Spouse Housing: House Are you a primary childcare center administrator to a significant other at home: No Do you presently have visiting nurse or other home services: No Alcohol intake: never Patient Tobacco Use Status: Former Tobacco user Tobacco use type: Cigarette Years Smoked: 8 quit 1974 e-Cigarette/Vaping Use: Never Used Second Hand Smoke Exposure: No service: No Current occupational status: employed Cognitive needs: No Hearing needs: No Vision needs: Yes (Glasses) Physical Exam Exam Exam: Patient does have a positive Trendelenburg gait. He has no hip pain with right hip range of motion. He has a negative Trendelenburg sign. Assessment & Plan Assessment & Plan (1) S/P total right hip arthroplasty: Code(s): Z96.641 - Presence of right artificial hip joint Category: Surgical Plan: Overall Cornel is doing well. He can discontinue his range of motion restrictions other than hyper internal rotation with straight leg flexion. With respect to his gait he really needs to activate his gluteal musculature in order to improve his gait mechanics. I reviewed this with him. I would like to see him back in 3 months. I will send a note to his physical therapist. Orders: Orders PT Evaluation and Treatment Today Z96.641 - Presence of right artificial hip joint Coding Level of Care Code Global (27998) Diagnoses S/P total right hip arthroplasty Z96.641
--- OUTSIDE RECORDS SUMMARY | 2025-09-21 18:18 | XMS_ITS | Encounter Summary ---
Author Organization [facility] Address [address] [address] [place] [address] Phone Care Team Providers Care Speaking Unit Assembler Name Role Phone Radha Nance MD Primary Care Provider Skyler Montemayor NP Primary Care Provide r Encounter Details Date Type Department Care Team (Late st Contact Info) Description 08/25/2017 Ancillary Orders Virtual Department 30 [place] [address] Radha Nance MD [address] [facility] [address] [place] [address] H/O tobacco use, presenting hazards to health [...] health documented in this encounter Care Teams Speaking Unit Assembler Relationship Specialty Start Date End Date Radha Nance MD [address] [place] [address] PCP - General Family Medicine 08/28/17 10/08/19 Skyler Montemayor NP [address] [place] [address] 201 [place] [address] PCP - General 10/09/19 documented as of this encounter Additional Source Comments The information contained in this document represents components of the legal health record. It is not the complete legal health record.[facility]
--- OUTSIDE RECORDS SUMMARY | 2025-09-21 18:18 | XMS_ITS | Clinical Summary ---
Author Organization [employer] Address [address] [place] [address] [place] [address] Care Team Providers Care Pony Edger Name Role Phone Unavailable Primary Care Provider [...] Description 10/20/2025 2:00 PM EST Office Visit [facility] DENTAL [address] [place] [address] Priti Young Health Maintenance Due Date Last [...] of 2) 2000 COVID-19 Vaccine ( - 2024-2 6 season) 2025 Influenza Vaccine (#1) 2025 Dental [...]
--- OUTSIDE RECORDS SUMMARY | 2025-09-21 18:18 | XMS_ITS | Clinical Summary ---
Author Organization [facility] Address [address] [facility] [address] [place] [address] Phone Care Team Providers Care Luggage Repairer Name Role Phone Skyler Montemayor NP Primary [...] file Insurance MEDICARE PART A & B [place] MEDICARE REPLACEMENT [facility] MEDICARE PART A & B [place] MED[place] REPLAC[facility] MED[facility] A & B MEDICARE PART A & B MEDICARE PART A & B [place] MEDICARE REPLACEMENT [facility] MEDICARE PART A & B Member Subscriber Plan / Payer (Ef fective 2011-Present) Name:Kailyn Anupam Member ID:[id number] Relation to Subscriber:Self Name:Kailyn Anupam Subscriber ID:[id number] Payer ID:[id number] Group ID:Not on file Type:Medicare Address: [employer] [address] [place] [phone] MEDICARE PART A & B Member Subscriber Plan / Payer (Ef fective 2011-Present) Name:Cornel Avina M Member ID:[id number] Relation to Subscriber:Self Name:Cornel Avina M Subscriber ID:[id number] Payer ID:[id number] Group ID:Not on file Type:Medicare Address: [employer] [address] MEDICARE REPLACEMENT [facility] MEDICARE PART A & B [place] MEDICARE REPLACEMENT [facility] MEDICARE PART A & B [place] MEDICARE REPLACEMENT [facility] Care Teams Luggage Repairer Relationship Specialty Start Date End Date Skyler Montemayor NP PCP - General 10/09/19 Additional Source Comments The information contained in this document represents components of the legal health record. It is not the complete legal health record.[facility]
== END 2025-09-21 14:03 | disposition home or self-care (01) ==
LOC: HO.HOS 13:32
PROVIDERS: PCP Internal Medicine; Visit Provider Orthopaedic Surgery
DX: Z96.641 Presence of right artificial hip joint (principal)
CPT/HCPCS: 99024

== ENCOUNTER 2025-10-19 11:11 | Outpatient (AMB) | payer OTHER, MEDICAID, SELFPAY ==
[2025-10-19 11:22] VITALS: BMI 36.6
--- NOTE | 2025-10-19 11:22 | A.OFFVIS_ITS ---
Vital Signs 10/19/25 11:22 Height 5 ft 5 in Weight 220 lb BMI 36.6 Intake Visit Reasons: new orthodics Intake Note: Cornel is a 74 year old male who presents today as a new patient for an evaluation of new orthotics. Patient reports his original orthotics are worn out and this is why he needs new ones. Patient denies experiencing pain in his feet however he does have left side back pain. He mentions previous surgical history of his right hip replacement. Allergies metronidazole (Flagyl) Allergy (Mild, Verified 10/19/25 11:30) light headed HPI HPI new orthodics: Details: The patient is a 74 year old male presenting for evaluation of gait abnormality, bilateral leg pain, and for consultation regarding new custom orthotics. Gait Abnormality and Back Pain: The patient underwent a total right hip replacement on June 23 2025. He notes alteration in his gait since then, including back pain and walks with a tilt to the right. He attends physical therapy, where it was noted that while his operated leg is doing well, his gait remains problematic. His physical therapist suggested that his new posture post-surgery is engaging a different muscle group, causing muscle tightness. Additionally, his prior orthotics wore out, and he is hoping to see if new orthotics which change or improve his gait. Dinh Pain: The patient reports a history of stinging pain in his shins that has been ongoing for years. The pain is elicited by touch and occurs primarily on the dinh but also around the leg. He notes his pain has been present since prior to the hip replacement and believes it is unrelated. [facility] Medical History Arthritis Depression ARMIDA on CPAP Anesthesia complication Dry skin dermatitis Venous stasis dermatitis Umbilical hernia Obesity (BMI 30-39.9) Renal calculi Surgical History H/O inguinal hernia repair Social History Household Members: Spouse Housing: House Are you a primary care transitions nurse to a significant other at home: No Do you presently have visiting nurse or other home services: No Alcohol intake: never Patient Tobacco Use Status: Former Tobacco user Tobacco use type: Cigarette Years Smoked: 8 quit 1975 e-Cigarette/Vaping Use: Never Used Second Hand Smoke Exposure: No service: No Current occupational status: employed Cognitive needs: No Hearing needs: No Vision needs: Yes (Glasses) Review of Systems Const All systems reviewed & are unremarkable except as noted in HPI and below Physical Exam Vital Signs: BMI result Body Mass Index 36.6 Extrem Other: *Bilateral Lower Extremity Focused Exam Vascular: DP/PT 2/4, CFT less than 3 seconds all digits, temperature gradient warm to cool. No pedal edema. No leg edema. Derm: No erythema or clinical signs of infection to bilateral feet. Neuro: Protective sensation grossly intact to bilateral lower extremities MSK: Mild tenderness on palpation of the tibial crest bilateral legs and the anterior muscle compartments. Manual muscle strength 5/5 to all leg compartments. Moderate high arch cavus feet bilaterally, reduces to moderate cavus feet on weightbearing. On gait examination, appears to have equal and symmetric gait except for right/lateral deviation. Assessment & Plan Assessment & Plan (1) Gait abnormality: Code(s): R26.9 - Unspecified abnormalities of gait and mobility Category: Medical Plan: * Clinical exam findings appear negative for a structural limb length discrepancy s/p SHARIFA however he may have a functional limb length discrepancy. * Rx Zamora's study (2) Anterior tibial syndrome: Code(s): M76.819 - Anterior tibial syndrome, unspecified leg Category: Medical Plan: * May be secondary to his cavus feet deformity * A handout was given to the patient for at home range of motion and stretching exercises (3) Bilateral foot pain: Code(s): M79.671 - Pain in right foot; M79.672 - Pain in left foot Category: Medical Plan: * Referred for custom orthotics at [facility] (4) Cavus deformity of both feet: Code(s): Q66.71 - Congenital pes cavus, right foot; Q66.72 - Congenital pes cavus, left foot Category: Medical Plan: * Educated the patient on their foot type. Explained that their high arch foot type (Cavus feet) can lead to altered weight distribution, resulting in increased pressure on the heel and forefoot. Patients may experience symptoms such as pain, callus formation, tendinitis, instability, lateral ankle sprains, and, in some cases, development of digital deformities (e.g., claw toes or hammertoes). Discussed the importance of shoe type with heel and forefoot padding and support.. Orders: Orders XR bone length study Today M25.551 - Pain in right hip, M79.671 - Pain in right foot, M79.672 - Pain in left foot Medications: New [Custom Foot Orthosis] Please dispense custom foot orthosis. Full length, deep heel cup, high arch fill, metatarsal pad. 1 ea 0RF Bilateral cavus feet, arch pain, dinh splints M76.819 - Anterior tibial syndrome, unspecified leg, M79.671 - Pain in right foot, M79.672 - Pain in left foot, Q66.71 - Congenital pes cavus, right foot, Q66.72 - Congenital pes cavus, left foot Coding Level of Care Code New Pt Level 4 (54683) Diagnoses Gait abnormality R26.9 Anterior tibial syndrome M76.819 Bilateral foot pain M79.671; M79.672 Cavus deformity of both feet Q66.71; Q66.72
--- OUTSIDE RECORDS SUMMARY | 2025-10-19 14:16 | XMS_ITS | Encounter Summary ---
Author Organization [facility] Address [address] [place] [address] Phone Care Team Providers Care Kettle Fry Cook Operator Name Role Phone Radha Nance MD Primary Care Provider [phone] Skyler Montemayor NP Primary Care Provide r Encounter Details Date Type Department Care Team (Late st Contact Info) Description 08/25/2017 Ancillary Orders Virtual Department 30 [place] [address] Radha Nance MD [address] [facility] [address] [place] [address] H/O tobacco use, presenting hazards to health [...] health documented in this encounter Care Teams Kettle Fry Cook Operator Relationship Specialty Start Date End Date Radha Nance MD [address] [place] [address] PCP - General Family Medicine 08/28/17 10/08/19 Skyler Montemayor NP [address] [place] [address] [address] [place] [address] PCP - General 10/09/19 documented as of this encounter Additional Source Comments The information contained in this document represents components of the legal health record. It is not the complete legal health record.[facility]
--- OUTSIDE RECORDS SUMMARY | 2025-10-19 14:16 | XMS_ITS | Patient Health Record ---
Author [facility] Address [address] [facility] [place] [address] Care Team Providers Care Hand Buffer Name Role Phone Almas Carpenter Primary Care Provider Hardeep Kimball Unavailable [phone] Allergies Allergen (clinical drug ingredient) Drug/Non Drug [...] primary osteoarthritis of the ankle and/or foot (679174755) Primary osteoarthritis, left ankle and foot (M19.072) Active confirmed Problem Acquired hammer toe of right foot (9216051831044681) Other hammer toe(s) (acquired), right foot (M20.41) Active confirmed Problem Acquired hammer toe of left foot (9426896681664506) Other hammer toe(s) (acquired), left foot (M20.42) Active confirmed Problem Peripheral venous insufficiency (58646590) Venous insufficiency of both lower extremities (I87.2) [...] Date [facility] [address] [place] [phone] Cornel Avina Self - patient is the insured Medical (General) History Medical History History ICD Code Anxiety Back,Hip,and Knee pain Measles Chicken pox Surgical History Surgery Date(Month/Year) hernia 01/2010/01/2018
--- OUTSIDE RECORDS SUMMARY | 2025-10-19 14:16 | XMS_ITS | Clinical Summary ---
Author Organization [employer] Address [address] [place] [address] [place] [address] Care Team Providers Care Hat Block Bench Hand Name Role Phone Unavailable Primary Care Provider [...] Description 10/20/2025 2:00 PM EST Office Visit [facility] DENTAL [address] [place] [address] Priti Young Health Maintenance Due Date Last [...]
--- OUTSIDE RECORDS SUMMARY | 2025-10-19 14:16 | XMS_ITS | Clinical Summary ---
Author Organization [facility] Address [address] [facility] [address] [place] [address] Phone Care Team Providers Care Team Leader Surgery Name Role Phone Skyler Montemayor NP Primary [...] file Insurance MEDICARE PART A & B [place] MEDICARE REPLACEMENT [facility] MEDICARE PART A & B [place] [facility] & B MEDICARE PART A & B MEDICARE PART A & B [place] MEDICARE REPLACEMENT [facility] MEDICARE PART A & B Member Subscriber Plan / Payer (Ef fective 2011-Present) Name:Kailyn Anupam Member ID:[id number] Relation to Subscriber:Self Name:Kailyn Anupam Subscriber ID:[id number] Payer ID:[id number] Group ID:Not on file Type:Medicare Address: [employer] [address] [place] [phone] MEDICARE PART A & B Member Subscriber Plan / Payer (Ef fective 2011-Present) Name:Cornel Avina M Member ID:[id number] Relation to Subscriber:Self Name:Cornel Avina M Subscriber ID:[id number] Payer ID:[id number] Group ID:Not on file Type:Medicare Address: [employer] [address] MEDICARE REPLACEMENT [facility] MEDICARE PART A & B [place] MEDICARE REPLACEMENT [facility] MEDICARE PART A & B [place] MEDICARE REPLACEMENT [facility] [employer] Care Teams Team Leader Surgery Relationship Specialty Start Date End Date Skyler Montemayor NP PCP - General 10/09/19 Additional Source Comments The information contained in this document represents components of the legal health record. It is not the complete legal health record.[facility]
== END 2025-10-19 11:55 | disposition home or self-care (01) ==
LOC: HO.HPODS 11:12
PROVIDERS: PCP Internal Medicine; Visit Provider Student in an Organized Health Care Education/Training Program
DX: R26.9 Unspecified abnormalities of gait and mobility (principal); M76.819 Anterior tibial syndrome, unspecified leg; M79.671 Pain in right foot; M79.672 Pain in left foot; Q66.71 Congenital pes cavus, right foot; Q66.72 Congenital pes cavus, left foot
CPT/HCPCS: 99204